=== PATIENT | male | born 1945 | race Hispanic/Latino ===

== ENCOUNTER 2018-04-10 11:33 | Inpatient (IN) | payer MEDICARE ==
[2018-04-10 11:37] VITALS: BMI 22.8
--- NOTE | 2018-04-10 12:19 | ED PDOC ---
HPI: General Adult Time Seen by Provider: 04/10/18 12:02 Chief Complaint (Nursing): Wound Check Additional Complaint(s): 72 y/o M c PMHx Parkinson's disease, anemia, seizure, s/p recent R hip surgery p /w R hip pain with erythema and discharge of pus, gradually worsening over the last week. States seen by Dr. Umana 1 week prior and informed appears well. Patient was then instructed to come to ED for further evaluation of the hip for possible infection over this weekend. He denies fever, chills, dyspnea, vomiting. Past Medical History Vital Signs: Last Vital Signs Temp 98.6 F 04/10/18 11:35 Pulse 72 04/10/18 11:35 Resp BP 123/74 04/10/18 11:35 Pulse Ox 98 04/10/18 14:14 - Family History Family History: States: No Known Family Hx - Home Medications Home Medications: Ambulatory Orders Medication Instructions Recorded Acetaminophen [Tylenol 325mg tab] 2 tab PO Q4 PRN 04/10/18 Carbidopa/Levodopa 25/100 mg 2 tab PO Q12 04/10/18 [Sinemet] DiphenhydrAMINE [Benadryl] 25 mg PO Q6 PRN 04/10/18 Docusate [Colace] 2 cap PO DAILY PRN 04/10/18 Ergocalciferol [Drisdol] 50,000 iu PO QWK 04/10/18 Lactobacillus Acidophilus 1 cap PO DAILY 04/10/18 [Acidophilus Lactobacillus] Ropinirole HCl [Requip Xl] 2 mg PO 04/10/18 Tamsulosin [Flomax] 1 cap PO DAILY 04/10/18 oxyCODONE/Acetaminophen [Percocet 1 tab PO Q6 04/10/18 5/325 mg Tab] - Allergies Allergies/Adverse Reactions: Allergies Allergy/AdvReac Type Severity Reaction Status Date / Time milk Allergy RASH Verified 04/10/18 11:44 Review of Systems ROS Statement: Except As Marked, All Systems Reviewed And Found Negative Constitutional: Negative for: Fever Respiratory: Negative for: Shortness of Breath Physical Exam - Physical Exam Comments: Gen: NAD Head: NC Eyes: No scleral icterus ENT: MMM Neck: Supple Chest: No tenderness CV: Regular rate Lungs: CTA b/l Abd: Soft, NT Back: No CVA tenderness Extremities: R hip incision with distal area of pus drainage Skin: No rash Neuro: Alert, no focal deficit. Tremor. - Laboratory Results Result Diagrams: 04/10/18 14:35 04/10/18 14:35 - ECG O2 Sat by Pulse Oximetry: 98 Medical Decision Making Medical Decision Making: EKG NSR 61 bpm, no ST/T wave changes CXR IMPRESSION: No active disease. HIP XR IMPRESSION: No fracture. Patient refused CT of hip. Dr. Umana recommends admission with him on consult and Dr. Valdez for ID. Betadine wet to dry dressings and keep normal diet. He recommends no wound cultures at this time. Dr. Mcmullen covering for Dr. Katrina garnica covers for Dr. Nava accepts admission. Disposition - Clinical Impression Clinical Impression: Encounter for postoperative wound check, Wound drainage - Patient ED Disposition Is Patient to be Admitted: Yes - Disposition Disposition Time: 17:15 Condition: GUARDED - Pt Status Changed To: Hospital Disposition Of: Inpatient - Admit Certification Admit to Inpatient:: After my assessment, the patient will require hospitalization for at least two midnights. This is because of the severity of symptoms shown, intensity of services needed, and/or the medical risk in this patient being treated as an outpatient.
--- NOTE | 2018-04-10 13:58 | RAD ---
HISTORY: R hip infection COMPARISON: No prior. FINDINGS: LUNGS: No active pulmonary disease. PLEURA: No significant pleural effusion identified, no pneumothorax apparent. CARDIOVASCULAR: Normal. OSSEOUS STRUCTURES: No significant abnormalities. VISUALIZED UPPER ABDOMEN: Normal. OTHER FINDINGS: None. IMPRESSION: No active disease.
--- NOTE | 2018-04-10 14:00 | RAD ---
HISTORY: s/p R hip replacement, possible infection COMPARISON: No prior FINDINGS: BONES: Right hip artgropladty.. No fracture. JOINTS: Normal. No osteoarthritis. SOFT TISSUE: Normal. OTHER FINDINGS: None . IMPRESSION: No fracture..
[2018-04-10 15:09] LABS: BASO % 0.4 % (0.0-2.0); EOS # 0.3 K/uL (0.0-0.7); EOS % 4.2 % (0.0-4.0); HEMOGLOBIN 11.4 g/dL (12.0-18.0); LYMPH # 1.8 K/uL (1.0-4.3); LYMPH % 30.3 % (20.0-40.0); MEAN CELL VOLUME 93.2 fl (80.0-94.0); MEAN CORPUSCULAR HEMOGLOBIN 30.9 pg (27.0-31.0); MEAN CORPUSCULAR HGB CONC 33.2 g/dL (33.0-37.0); MEAN PLATELET VOLUME 6.5 fl (7.2-11.7); MONO # 0.5 K/uL (0.0-0.8); MONO % 8.9 % (0.0-10.0); NEUT # 3.3 K/uL (1.8-7.0); NEUT % 56.2 % (50.0-75.0); NRBC % 0.1 % (0.0-0.0); RBC 3.69 Mil/uL (4.40-5.90); RED CELL DISTRIBUTION WIDTH 14.9 % (11.5-14.5); WHITE BLOOD COUNT 5.9 K/uL (4.8-10.8)
[2018-04-10 15:12] LABS: ALBUMIN 3.5 g/dL (3.5-5.0); ALT/SGPT 11 U/L (21-72); AST/SGOT 18 U/L (17-59); BLOOD UREA NITROGEN 14 mg/dl (9-20); CALCIUM 8.9 mg/dL (8.4-10.2); GFR AFRICAN-AMERICAN > 60; GFR NON-AFRICAN AMERICAN > 60
[2018-04-10 15:26] LABS: URINE BILIRUBIN NEGATIVE (NEGATIVE); URINE BLOOD MODERATE (NEGATIVE); URINE CLARITY SLIGHTY-CLOUDY (Clear); URINE COLOR YELLOW (YELLOW); URINE GLUCOSE (UA) NEG (Normal); URINE LEUKOCYTE ESTERASE NEG Leu/uL (Negative); URINE PROTEIN NEGATIVE (NEGATIVE)
[2018-04-10 15:34] LABS: PARTIAL THROMBOPLASTIN TIME 32.1 Seconds (25.6-37.1); PROTHROMBIN TIME 11.4 Seconds (9.8-13.1)
[2018-04-10] MEDS ORDERED: Vancomycin 1 g Inj ONE (15:44)
[2018-04-10] MEDS ORDERED: Povidone Iodine Oint 10% Foilpak UD ONE (18:12)
[2018-04-10] MEDS ORDERED: Oxycodone/Acetaminophen 5/325 mg Tab PO PRN (20:28)
--- NOTE | 2018-04-11 03:16 | CP.PCM.HP ---
History of Present Illness - History of Present Illness History of Present Illness: CC: s/p surgery wound drainnage 72 y/o M c PMHx Parkinson's disease, anemia, seizure, s/p recent R hip surgery p /w R hip pain with erythema and discharge of pus, gradually worsening over the last week. States seen by Dr. Umana 1 week prior and informed appears well. Patient was then instructed to come to ED for further evaluation of the hip for possible infection over this weekend. He denies fever, chills, dyspnea, vomiting. Past Patient History - Past Medical History & Family History Past Medical History?: Yes - Past Social History Smoking Status: Never Smoked - CARDIAC Hx Cardiac Disorders: No - PULMONARY Hx Respiratory Disorders: No - NEUROLOGICAL Hx Neurological Disorder: Yes Hx Parkinson's Disease: Yes - HEENT Hx HEENT Problems: No - RENAL Hx Chronic Kidney Disease: No - MUSCULOSKELETAL/RHEUMATOLOGICAL Hx Musculoskeletal Disorders: Yes Hx Falls: Yes (1) - GENITOURINARY/GYNECOLOGICAL Hx Genitourinary Disorders: Yes Hx Incontinence: Yes - PSYCHIATRIC Hx Psychophysiologic Disorder: No Hx Substance Use: No - SURGICAL HISTORY Hx Open Reduction Internal Fixation: Yes (Rt hip) Hx Orthopedic Surgery: Yes - ANESTHESIA Hx Anesthesia: Yes Hx Anesthesia Reactions: No Hx Malignant Hyperthermia: No Meds Allergies/Adverse Reactions: Allergies Allergy/AdvReac Type Severity Reaction Status Date / Time milk Allergy RASH Verified 04/10/18 11:44 Results - Vital Signs Recent Vital Signs: Last Vital Signs Temp 97.8 F 04/10/18 23:53 Pulse 63 04/10/18 23:53 Resp 20 04/10/18 23:53 BP 91/60 L 04/10/18 23:53 Pulse Ox 96 04/10/18 23:53 - Labs Result Diagrams: 04/10/18 14:35 04/10/18 14:35 Labs: Laboratory Results - last 24 hr 04/10/18 04/10/18 04/10/18 14:35 14:35 14:35 WBC 5.9 RBC 3.69 L Hgb 11.4 L Hct 34.3 L MCV 93.2 MCH 30.9 MCHC 33.2 RDW 14.9 H Plt Count 298 MPV 6.5 L Neut % (Auto) 56.2 Lymph % (Auto) 30.3 [place] % (Auto) 8.9 Eos % (Auto) 4.2 H Baso % (Auto) 0.4 Neut # (Auto) 3.3 Lymph # (Auto) 1.8 [place] # (Auto) 0.5 Eos # (Auto) 0.3 Baso # (Auto) 0.0 ESR 105 H PT 11.4 INR 1.0 APTT 32.1 Sodium 137 Potassium 4.2 Chloride 98 Carbon Dioxide 28 Anion Gap 15 BUN 14 Creatinine 0.4 L Est GFR ( Amer) > 60 Est GFR (Non-Af Amer) > 60 Random Glucose 92 Calcium 8.9 Total Bilirubin 0.5 AST 18 ALT 11 L Alkaline Phosphatase 73 Total Protein 7.1 Albumin 3.5 Globulin 3.6 Albumin/Globulin Ratio 1.0 Urine Color Urine Clarity Urine pH Ur Specific [place] Urine Protein Urine Glucose (UA) Urine Ketones Urine Blood Urine Nitrate Urine Bilirubin Urine Urobilinogen Ur Leukocyte Esterase Urine RBC (Auto) Urine Microscopic WBC Blood Type Antibody Screen BBK History Checked 04/10/18 04/10/18 14:35 14:40 WBC RBC Hgb Hct MCV MCH MCHC RDW Plt Count MPV Neut % (Auto) Lymph % (Auto) [place] % (Auto) Eos % (Auto) Baso % (Auto) Neut # (Auto) Lymph # (Auto) [place] # (Auto) Eos # (Auto) Baso # (Auto) ESR PT INR APTT Sodium Potassium Chloride Carbon Dioxide Anion Gap BUN Creatinine Est GFR ( Amer) Est GFR (Non-Af Amer) Random Glucose Calcium Total Bilirubin AST ALT Alkaline Phosphatase Total Protein Albumin Globulin Albumin/Globulin Ratio Urine Color Yellow Urine Clarity Slighty-cloudy Urine pH 6.0 Ur Specific [place] 1.020 Urine Protein Negative Urine Glucose (UA) Neg Urine Ketones Negative Urine Blood Moderate Urine Nitrate Negative Urine Bilirubin Negative Urine Urobilinogen 2.0 Ur Leukocyte Esterase Neg Urine RBC (Auto) 255 H Urine Microscopic WBC 1 Blood Type O POSITIVE Antibody Screen Negative BBK History Checked No verified bt
[2018-04-11 06:30] LABS: MEAN CELL VOLUME 92.3 fl (80.0-94.0); MEAN CORPUSCULAR HEMOGLOBIN 31.2 pg (27.0-31.0); MEAN CORPUSCULAR HGB CONC 33.8 g/dL (33.0-37.0); RBC 3.52 Mil/uL (4.40-5.90); RED CELL DISTRIBUTION WIDTH 14.9 % (11.5-14.5)
[2018-04-11 07:02] LABS: ALB/GLOB RATIO 0.9 (1.0-2.1); ALBUMIN 3.3 g/dL (3.5-5.0); ALT/SGPT 18 U/L (21-72); AST/SGOT 15 U/L (17-59); BLOOD UREA NITROGEN 13 mg/dl (9-20); CALCIUM 9.1 mg/dL (8.4-10.2); GFR AFRICAN-AMERICAN > 60; GFR NON-AFRICAN AMERICAN > 60
--- NOTE | 2018-04-11 08:14 | CP.PCM.CON ---
<Alex Hurley - Last Filed: 04/11/18 16:10> History of Present Illness - History of Present Illness History of Present Illness: Orthopedic consult: Patient is a 72 y/o male with PMH of Parkinson's disease, who was admitted due to R hip drainage over the last 2 weeks. The patient has a history of a right total hip replacement performed on 01/17/18 and returned to the OR for a revision right total hip replacement due to infected prosthesis on 01/31/18. He has been transfused with IV antibiotics through his RUE PICC line since his revision surgery. The patient was transferred to a rehab center with slow progression of his rehabilitation. He notes that he is only able to ambulate a few feet with a walker due to imbalance. Two weeks ago, he noticed cloudy drainage from his right hip wound site which has been constant. His pain is otherwise controlled. He denies any fevers, radiation of pain, numbness or tingling. He also denies CP/SOB/N/V/D/dysuria/melena. Review of Systems - Review of Systems All systems: reviewed and no additional remarkable complaints except Review of Systems: as per HPI Past Patient History - Past Medical History & Family History Past Medical History?: Yes - Past Social History Smoking Status: Never Smoked Alcohol: None Drugs: Denies - CARDIAC Hx Cardiac Disorders: No - PULMONARY Hx Respiratory Disorders: No - NEUROLOGICAL Hx Neurological Disorder: Yes Hx Parkinson's Disease: Yes - HEENT Hx HEENT Problems: No - RENAL Hx Chronic Kidney Disease: No - ENDOCRINE/METABOLIC Hx Endocrine Disorders: No - HEMATOLOGICAL/ONCOLOGICAL Hx Blood Disorders: No Hx Anemia: Yes - INTEGUMENTARY Hx Dermatological Problems: No - MUSCULOSKELETAL/RHEUMATOLOGICAL Hx Musculoskeletal Disorders: Yes Hx Falls: Yes (1) - GASTROINTESTINAL Hx Gastrointestinal Disorders: No - GENITOURINARY/GYNECOLOGICAL Hx Genitourinary Disorders: Yes Hx Incontinence: Yes - PSYCHIATRIC Hx Psychophysiologic Disorder: No Hx Substance Use: No - SURGICAL HISTORY Hx Orthopedic Surgery: Yes (Right DONELL, Right revision DONELL) - ANESTHESIA Hx Anesthesia: Yes Hx Anesthesia Reactions: No Hx Malignant Hyperthermia: No Meds Allergies/Adverse Reactions: Allergies Allergy/AdvReac Type Severity Reaction Status Date / Time milk Allergy RASH Verified 04/10/18 11:44 - Medications Medications: Current Medications Acetaminophen (Tylenol 325mg Tab) 2 mg PO Q4 PRN PRN Reason: Pain, moderate (4-7) Carbidopa/Levodopa (Sinemet) 2 tab PO Q12 [facility] Last Admin: 04/10/18 21:11 Dose: 2 tab Docusate Sodium (Colace) 200 mg PO DAILY PRN PRN Reason: Constipation Ergocalciferol (Drisdol 50,000 Intl Units Cap) 1 cap PO QWK [facility] Lactobacillus Acidophilus (Bacid Acidophilus) 1 cap PO DAILY [facility] Oxycodone/Acetaminophen (Percocet 5/325 Mg Tab) 1 tab PO Q4 PRN PRN Reason: Pain, moderate (4-7) Stop: 04/13/18 21:01 Last Admin: 04/10/18 21:11 Dose: 1 tab Tamsulosin HCl (Flomax) 0.4 mg PO DAILY [facility] Physical Exam - Constitutional Appears: Well, No Acute Distress - Head Exam Head Exam: ATRAUMATIC, NORMOCEPHALIC - Eye Exam Eye Exam: EOMI, Normal appearance, PERRL - ENT Exam ENT Exam: Mucous Membranes Moist, Normal Exam - Respiratory Exam Respiratory Exam: Clear to Auscultation Bilateral, NORMAL BREATHING PATTERN - Cardiovascular Exam Cardiovascular Exam: REGULAR RHYTHM - GI/Abdominal Exam GI & Abdominal Exam: Normal Bowel Sounds, Soft - Extremities Exam Additional comments: Right hip: minimal swelling, Dressings with mod serous drainage, DONELL scar with serous drainage from proximal and distal aspect of wound sensation intact SP/DP/TN motor intact EHL/FHL/TA/G pedal pulses intact comps soft and NT b/l L hip: No swelling, no lesions, no tenderness sensation intact SP/DP/TN motor intact EHL/FHL/TA/G pedal pulses intact comps soft and NT b/l - Neurological Exam Neurological exam: Alert, Oriented x3 Additional comments: UE tremor from parkinson's dz - Psychiatric Exam Psychiatric exam: Normal Affect, Normal Mood - Skin Skin Exam: Normal Color, Warm Results - Vital Signs Recent Vital Signs: Last Vital Signs Temp 97.7 F 04/11/18 08:02 Pulse 57 L 04/11/18 08:02 Resp 19 04/11/18 08:02 BP 101/63 04/11/18 08:02 Pulse Ox 98 04/11/18 08:02 - Labs Result Diagrams: 04/11/18 05:35 04/11/18 05:35 Labs: Laboratory Results - last 24 hr 04/10/18 04/10/18 04/10/18 14:35 14:35 14:35 WBC 5.9 RBC 3.69 L Hgb 11.4 L Hct 34.3 L MCV 93.2 MCH 30.9 MCHC 33.2 RDW 14.9 H Plt Count 298 MPV 6.5 L Neut % (Auto) 56.2 Lymph % (Auto) 30.3 [place] % (Auto) 8.9 Eos % (Auto) 4.2 H Baso % (Auto) 0.4 Neut # (Auto) 3.3 Lymph # (Auto) 1.8 [place] # (Auto) 0.5 Eos # (Auto) 0.3 Baso # (Auto) 0.0 ESR 105 H PT 11.4 INR 1.0 APTT 32.1 Sodium 137 Potassium 4.2 Chloride 98 Carbon Dioxide 28 Anion Gap 15 BUN 14 Creatinine 0.4 L Est GFR ( Amer) > 60 Est GFR (Non-Af Amer) > 60 Random Glucose 92 Calcium 8.9 Total Bilirubin 0.5 AST 18 ALT 11 L Alkaline Phosphatase 73 Total Protein 7.1 Albumin 3.5 Globulin 3.6 Albumin/Globulin Ratio 1.0 Urine Color Urine Clarity Urine pH Ur Specific [place] Urine Protein Urine Glucose (UA) Urine Ketones Urine Blood Urine Nitrate Urine Bilirubin Urine Urobilinogen Ur Leukocyte Esterase Urine RBC (Auto) Urine Microscopic WBC Blood Type Antibody Screen BBK History Checked 04/10/18 04/10/18 04/11/18 14:35 14:40 05:35 WBC 4.0 L RBC 3.52 L Hgb 11.0 L Hct 32.5 L MCV 92.3 MCH 31.2 H MCHC 33.8 RDW 14.9 H Plt Count 299 MPV Neut % (Auto) Lymph % (Auto) [place] % (Auto) Eos % (Auto) Baso % (Auto) Neut # (Auto) Lymph # (Auto) [place] # (Auto) Eos # (Auto) Baso # (Auto) ESR 83 H PT INR APTT Sodium Potassium Chloride Carbon Dioxide Anion Gap BUN Creatinine Est GFR ( Amer) Est GFR (Non-Af Amer) Random Glucose Calcium Total Bilirubin AST ALT Alkaline Phosphatase Total Protein Albumin Globulin Albumin/Globulin Ratio Urine Color Yellow Urine Clarity Slighty-cloudy Urine pH 6.0 Ur Specific [place] 1.020 Urine Protein Negative Urine Glucose (UA) Neg Urine Ketones Negative Urine Blood Moderate Urine Nitrate Negative Urine Bilirubin Negative Urine Urobilinogen 2.0 Ur Leukocyte Esterase Neg Urine RBC (Auto) 255 H Urine Microscopic WBC 1 Blood Type O POSITIVE Antibody Screen Negative BBK History Checked No verified bt 04/11/18 05:35 WBC RBC Hgb Hct MCV MCH MCHC RDW Plt Count MPV Neut % (Auto) Lymph % (Auto) [place] % (Auto) Eos % (Auto) Baso % (Auto) Neut # (Auto) Lymph # (Auto) [place] # (Auto) Eos # (Auto) Baso # (Auto) ESR PT INR APTT Sodium 136 Potassium 4.2 Chloride 99 Carbon Dioxide 27 Anion Gap 14 BUN 13 Creatinine 0.4 L Est GFR ( Amer) > 60 Est GFR (Non-Af Amer) > 60 Random Glucose 86 Calcium 9.1 Total Bilirubin 0.5 AST 15 L ALT 18 L D Alkaline Phosphatase 63 Total Protein 6.9 Albumin 3.3 L Globulin 3.6 Albumin/Globulin Ratio 0.9 L Urine Color Urine Clarity Urine pH Ur Specific [place] Urine Protein Urine Glucose (UA) Urine Ketones Urine Blood Urine Nitrate Urine Bilirubin Urine Urobilinogen Ur Leukocyte Esterase Urine RBC (Auto) Urine Microscopic WBC Blood Type Antibody Screen BBK History Checked Assessment & Plan (1) Wound drainage Assessment and Plan: Patient is 3 months s/p R DONELL and 2 months s/p revision R DONELL with drainage from wound, infected prosthesis -Xrays reveal intact prosthesis with no evidence of component loosening -medical and cardiac clearance -Dr. Umana recommends Right hip washout, possible poly exchange, possible removal of prosthesis and antibiotic spacer placement once cleared -abx as per ID -above d/w Dr. Umana in agreement Status: Acute Radiology Interpretation - Notes: Notes:: Accession No. : [id number] Patient Name / ID : JUDI LAZO / [id number] Exam Date : 04/10/2018 12:33:53 ( Approved ) Study Comment : Sex / Age : M / 72Y Creator : Mychal Buchanan MD Dictator : Mychal Buchanan MD Company Accountant : [employer] Advisor : Mychal Buchanan MD Approver2 : Report Date : 04/10/2018 13:59:19 My Comment : HISTORY: s/p R hip replacement, possible infection COMPARISON: No prior FINDINGS: BONES: Right hip artgropladty.. No fracture. JOINTS: Normal. No osteoarthritis. SOFT TISSUE: Normal. OTHER FINDINGS: None . IMPRESSION: No fracture.. - Radiology Interpretation #2 Interpretation: Accession No. : [id number] Patient Name / ID : JUDI LAZO / [id number] Exam Date : 04/11/2018 09:21:36 ( Approved ) Study Comment : Sex / Age : M / 72Y Creator : Edgardo Payne MD Dictator : Edgardo Payne MD Company Accountant : [employer] Advisor : Edgardo Payne MD Approver2 : Report Date : 04/11/2018 10:25:25 My Comment : PROCEDURE: CT right hip HISTORY: with IV contrast, R hip surgery COMPARISON: Not available TECHNIQUE: 2.5 mm contiguous axial sections were acquired through the right hip. Sagittal and coronal images were reformatted from the axial scan. FINDINGS: Patient is status post right hip arthroplasty. Knee prosthesis appears intact. There is no evidence of prosthesis loosening. There is no acute osseous fracture appreciated. There is normal situation of the femoral head component within the acetabular cup. Within the incision wounds in there is a small ill-defined fluid collection just beneath the skin surface, measuring roughly 1.8 x 1.3 cm. There is a small amount of gas seen within this collection. The contours of the collection are poorly delineated due to lack of adequate enhancement. This may reflect abscess or a mix of abscess and phlegmon. No other collection is identified elsewhere. Incidentally noted is a right inguinal hernia containing cecum and terminal ileum. There is no evidence of bowel obstruction on this limited evaluation of the bowel. Also of note is a calcified structure or collection of calcifications at the right bladder base. Uncertain significance. Diffusely thickened bladder wall though this may be partially due to artifact from inadequate distention. IMPRESSION: Right hip arthroplasty. No evidence of fracture or prosthesis loosening. Small collection of fluid/ phlegmon and a small amount of gas immediately beneath the skin surface at the incision site, 1.8 cm greatest dimension. Right inguinal hernia containing cecum and terminal ileum. Nonspecific calcification at the right bladder base. Thickened bladder wall, nonspecific. See above. <Gordon Umana III - Last Filed: 04/11/18 18:09> Meds - Medications Medications: Current Medications Acetaminophen (Tylenol 325mg Tab) 2 mg PO Q4 PRN PRN Reason: Pain, moderate (4-7) Carbidopa/Levodopa (Sinemet) 2 tab PO Q12 [facility] Last Admin: 04/11/18 10:39 Dose: Not Given Docusate Sodium (Colace) 200 mg PO DAILY PRN PRN Reason: Constipation Ergocalciferol (Drisdol 50,000 Intl Units Cap) 1 cap PO QWK [facility] Vancomycin HCl 1 gm/ Sodium (Chloride) 250 mls @ 166.667 mls/hr IVPB Q12H [facility] PRN Reason: Protocol Last Admin: 04/11/18 11:28 Dose: 166.667 mls/hr Cefepime HCl 2 gm/ Sodium (Chloride) 100 mls @ 100 mls/hr IVPB Q12 [facility] PRN Reason: Protocol Last Admin: 04/11/18 11:28 Dose: 100 mls/hr Lactobacillus Acidophilus (Bacid Acidophilus) 1 cap PO DAILY [facility] Last Admin: 04/11/18 10:39 Dose: Not Given Oxycodone/Acetaminophen (Percocet 5/325 Mg Tab) 1 tab PO Q4 PRN PRN Reason: Pain, moderate (4-7) Stop: 04/13/18 21:01 Last Admin: 04/10/18 21:11 Dose: 1 tab Tamsulosin HCl (Flomax) 0.4 mg PO DAILY [facility] Last Admin: 04/11/18 10:39 Dose: Not Given Results - Vital Signs Recent Vital Signs: Last Vital Signs Temp 98.3 F 04/11/18 15:55 Pulse 63 04/11/18 15:55 Resp 20 04/11/18 15:55 BP 113/68 04/11/18 15:55 Pulse Ox 96 04/11/18 15:55 - Labs Result Diagrams: 04/11/18 05:35 04/11/18 05:35 Labs: Laboratory Results - last 24 hr 04/10/18 04/10/18 04/11/18 14:35 14:35 05:35 WBC 4.0 L RBC 3.52 L Hgb 11.0 L Hct 32.5 L MCV 92.3 MCH 31.2 H MCHC 33.8 RDW 14.9 H Plt Count 299 ESR 83 H Sodium Potassium Chloride Carbon Dioxide Anion Gap BUN Creatinine Est GFR ( Amer) Est GFR (Non-Af Amer) Random Glucose Calcium Total Bilirubin AST ALT Alkaline Phosphatase C-React Prot High Sens > 15.00 H Total Protein Albumin Globulin Albumin/Globulin Ratio Blood Type O POSITIVE Antibody Screen Negative Crossmatch See Detail BBK History Checked No verified bt 04/11/18 05:35 WBC RBC Hgb Hct MCV MCH MCHC RDW Plt Count ESR Sodium 136 Potassium 4.2 Chloride 99 Carbon Dioxide 27 Anion Gap 14 BUN 13 Creatinine 0.4 L Est GFR ( Amer) > 60 Est GFR (Non-Af Amer) > 60 Random Glucose 86 Calcium 9.1 Total Bilirubin 0.5 AST 15 L ALT 18 L D Alkaline Phosphatase 63 C-React Prot High Sens Total Protein 6.9 Albumin 3.3 L Globulin 3.6 Albumin/Globulin Ratio 0.9 L Blood Type Antibody Screen Crossmatch BBK History Checked Assessment & Plan - Assessment and Plan (Free Text) Assessment: A- s/p R septic Knee with recurrence of apparently superficial pocket No increase pain on passive flexion/extenison P- after Dr Juarez cardiology clearance, to OR for I+D vs component removal and insertion of abio impregnated spacer
--- NOTE | 2018-04-11 08:37 | CARD ---
APPROVED REPORT EKG Measurement Heart [id number] <Conclusion> Normal sinus rhythm Normal ECG
[2018-04-11] MEDS ORDERED: Iohexol 300 100 ML IJ ONE (09:33)
[2018-04-11] MEDS ORDERED: Sodium Chloride 0.9% 50 ML IV ONE (09:33)
--- NOTE | 2018-04-11 10:06 | CP.PCM.CON ---
History of Present Illness - History of Present Illness History of Present Illness: 72 y/o male was admitted due to R hip drainage over the last 2 weeks. The patient has a history of a right total hip replacement performed on 01/17/18 and returned to the OR for a revision right total hip replacement due to infected prosthesis on 01/31/18. He has been treated with IV antibiotics through his RUE PICC line since his revision surgery. The patient was transferred to a rehab center with slow progression of his rehabilitation. He notes that he was only able to ambulate a few feet with a walker due to imbalance. Two weeks ago, he noticed cloudy drainage from his right hip wound site which has been constant. cultures taken CT scan pending for OR/ washout this afternoon Review of Systems - Review of Systems All systems: reviewed and no additional remarkable complaints except - Constitutional Constitutional: As Per HPI - EENT Eyes: absent: As Per HPI, Blind Spots, Blurred Vision, Change in Vision, Decreased Night Vision, Diplopia, Discharge, Dry Eye, Exophthalmos, Floaters, Irritation, Itchy Eyes, Loss of Peripheral Vision, Pain, Photophobia, Requires Corrective Lenses, Sees Flashes, Spots in Vision, Tunnel Vision, Other Visual Disturbances, Loss of Vision, Other Ears: absent: As Per HPI, Decreased Hearing, Ear Discharge, Ear Pain, Tinnitus, Abnormal Hearing, Disequilibrium, Dizziness, Other Nose/Mouth/Throat: absent: As Per HPI, Epistaxis, Nasal Congestion, Nasal Discharge, Nasal Obstruction, Nasal Trauma, Nose Pain, Post Nasal Drip, Sinus Pain, Sinus Pressure, Bleeding Gums, Change in Voice, Dental Pain, Dry Mouth, Dysphagia, Halitosis, Hoarsness, Lip Swelling, Mouth Lesions, Mouth Pain, Odynophagia, Sore Throat, Throat Swelling, Tongue Swelling, Facial Pain, Neck Pain, Neck Mass, Other - Cardiovascular Cardiovascular: absent: As Per HPI, Acrocyanosis, Chest Pain, Chest Pain at Rest , Chest Pain with Activity, Claudication, Diaphoresis, Dyspnea, Dyspnea on Exertion, Edema, Irregular Heart Rhythm, Pain Radiating to Arm/Neck/Jaw, Leg Edema, Leg Ulcers, Lightheadedness, Orthopnea, Palpitations, Paroxysmal Nocturnal Dyspnea, Pedal Edema, Radiating Pain, Rapid Heart Rate, Slow Heart Rate, Syncope, Other - Respiratory Respiratory: absent: As Per HPI, Cough, Dyspnea, Hemoptysis, Dyspnea on Exertion , Wheezing, Snoring, Stridor, Pain on Inspiration, Chest Congestion, Excessive Mucous Production, Change in Mucous Color, Pain with Coughing, Other - Gastrointestinal Gastrointestinal: absent: As Per HPI, Abdominal Pain, Belching, Bloating, Change in Bowel Habits, Change in Stool Character, Coffee Ground Emesis, Constipation, Cramping, Diarrhea, Dyspepsia, Dysphagia, Early Satiety, Excessive Flatus, Fecal Incontinence, Heartburn, Hematemesis, Hematochezia, Loose Stools, Melena, Nausea, Odynophagia, Temesmus, Vomiting, Other - Genitourinary Genitourinary: absent: As Per HPI, Change in Urinary Stream, Difficulty Urinating, Dysuria, Flank Pain, Hematuria, Pyuria, Nocturia, Urinary Incontinence, Urinary Frequency, Urinary Hesitance, Urinary Urgency, Voiding Freq/Small Amts, Freq UTI, Hx Renal/Bladder Calculi, Hx /Renal Surgery, Bladder Distension, Other - Musculoskeletal Musculoskeletal: As Per HPI - Integumentary Integumentary: As Per HPI - Neurological Neurological: As Per HPI, Tremor - Psychiatric Psychiatric: absent: As Per HPI, Abnormal Sleep Pattern, Anhedonia, Anxiety, Auditory Hallucinations, Behavioral Changes, Change in Appetite, Change in Libido, Confusion, Depression, Difficulty Concentrating, Hallucinations, Homicidal Ideation, Hopelessness, Irritability, Memory Loss, Mood Swings, Panic Attacks, Paranoia, Suicidal Ideation, Visual Hallucinations, Tactile Hallucinations, Other - Endocrine Endocrine: absent: As Per HPI, Change in Body Appearance, Change in Libido, Cold Intolorance, Deepening of Voice, Excessive Sweating, Fatigue, Flushing, Heat Intolorance, Increase in Ring/Shoe/Hat Size, Palpitations, Polydipsia, Polyphagia, Polyuria, Other - Hematologic/Lymphatic Hematologic: absent: As Per HPI, Easy Bleeding, Easy Bruising, Lymphadenopathy, Other Past Patient History - Past Medical History & Family History Past Medical History?: Yes - Past Social History Smoking Status: Never Smoked Alcohol: None Drugs: Denies - CARDIAC Hx Cardiac Disorders: No - PULMONARY Hx Respiratory Disorders: No - NEUROLOGICAL Hx Neurological Disorder: Yes Hx Parkinson's Disease: Yes - HEENT Hx HEENT Problems: No - RENAL Hx Chronic Kidney Disease: No - ENDOCRINE/METABOLIC Hx Endocrine Disorders: No - HEMATOLOGICAL/ONCOLOGICAL Hx Blood Disorders: No Hx Anemia: Yes - INTEGUMENTARY Hx Dermatological Problems: No - MUSCULOSKELETAL/RHEUMATOLOGICAL Hx Musculoskeletal Disorders: Yes Hx Falls: Yes (1) - GASTROINTESTINAL Hx Gastrointestinal Disorders: No - GENITOURINARY/GYNECOLOGICAL Hx Genitourinary Disorders: Yes Hx Incontinence: Yes - PSYCHIATRIC Hx Psychophysiologic Disorder: No Hx Substance Use: No - SURGICAL HISTORY Hx Orthopedic Surgery: Yes (Right DONELL, Right revision DONELL) - ANESTHESIA Hx Anesthesia: Yes Hx Anesthesia Reactions: No Hx Malignant Hyperthermia: No Meds Allergies/Adverse Reactions: Allergies Allergy/AdvReac Type Severity Reaction Status Date / Time milk Allergy RASH Verified 04/10/18 11:44 - Medications Medications: Current Medications Acetaminophen (Tylenol 325mg Tab) 2 mg PO Q4 PRN PRN Reason: Pain, moderate (4-7) Carbidopa/Levodopa (Sinemet) 2 tab PO Q12 [facility] Last Admin: 04/10/18 21:11 Dose: 2 tab Docusate Sodium (Colace) 200 mg PO DAILY PRN PRN Reason: Constipation Ergocalciferol (Drisdol 50,000 Intl Units Cap) 1 cap PO QWK [facility] Lactobacillus Acidophilus (Bacid Acidophilus) 1 cap PO DAILY [facility] Oxycodone/Acetaminophen (Percocet 5/325 Mg Tab) 1 tab PO Q4 PRN PRN Reason: Pain, moderate (4-7) Stop: 04/13/18 21:01 Last Admin: 04/10/18 21:11 Dose: 1 tab Tamsulosin HCl (Flomax) 0.4 mg PO DAILY [facility] Physical Exam - Constitutional Appears: Non-toxic, Chronically Ill - Head Exam Head Exam: ATRAUMATIC, NORMAL INSPECTION, NORMOCEPHALIC - Eye Exam Eye Exam: PERRL. absent: Scleral icterus - ENT Exam ENT Exam: Mucous Membranes Dry, Normal External Ear Exam - Neck Exam Neck exam: Negative for: Lymphadenopathy - Respiratory Exam Respiratory Exam: Decreased Breath Sounds, Clear to Auscultation Bilateral - Cardiovascular Exam Cardiovascular Exam: REGULAR RHYTHM, +S1, +S2 - GI/Abdominal Exam GI & Abdominal Exam: Diminished Bowel Sounds, Soft. absent: Tenderness - Rectal Exam Rectal Exam: Deferred - Exam Exam: NORMAL INSPECTION - Extremities Exam Extremities exam: Positive for: pedal pulses present. Negative for: calf tenderness, pedal edema, tenderness - Back Exam Back exam: absent: CVA tenderness (L), CVA tenderness (R) - Neurological Exam Neurological exam: Alert, CN II-XII Intact, Oriented x3 Additional comments: tremors ++ - Psychiatric Exam Psychiatric exam: Anxious - Skin Skin Exam: Intact Additional comments: drainage at lower end of right hip incision Results - Vital Signs Recent Vital Signs: Last Vital Signs Temp 97.7 F 04/11/18 08:02 Pulse 57 L 04/11/18 08:02 Resp 19 04/11/18 08:02 BP 101/63 04/11/18 08:02 Pulse Ox 98 04/11/18 08:02 - Labs Result Diagrams: 04/11/18 05:35 04/11/18 05:35 Labs: Laboratory Results - last 24 hr 04/10/18 04/10/18 04/10/18 14:35 14:35 14:35 WBC 5.9 RBC 3.69 L Hgb 11.4 L Hct 34.3 L MCV 93.2 MCH 30.9 MCHC 33.2 RDW 14.9 H Plt Count 298 MPV 6.5 L Neut % (Auto) 56.2 Lymph % (Auto) 30.3 [place]arton % (Auto) 8.9 Eos % (Auto) 4.2 H Baso % (Auto) 0.4 Neut # (Auto) 3.3 Lymph # (Auto) 1.8 [place]arton # (Auto) 0.5 Eos # (Auto) 0.3 Baso # (Auto) 0.0 ESR 105 H PT 11.4 INR 1.0 APTT 32.1 Sodium 137 Potassium 4.2 Chloride 98 Carbon Dioxide 28 Anion Gap 15 BUN 14 Creatinine 0.4 L Est GFR ( Amer) > 60 Est GFR (Non-Af Amer) > 60 Random Glucose 92 Calcium 8.9 Total Bilirubin 0.5 AST 18 ALT 11 L Alkaline Phosphatase 73 Total Protein 7.1 Albumin 3.5 Globulin 3.6 Albumin/Globulin Ratio 1.0 Urine Color Urine Clarity Urine pH Ur Specific [place] Urine Protein Urine Glucose (UA) Urine Ketones Urine Blood Urine Nitrate Urine Bilirubin Urine Urobilinogen Ur Leukocyte Esterase Urine RBC (Auto) Urine Microscopic WBC Blood Type Antibody Screen Crossmatch BBK History Checked 04/10/18 04/10/18 04/11/18 14:35 14:40 05:35 WBC 4.0 L RBC 3.52 L Hgb 11.0 L Hct 32.5 L MCV 92.3 MCH 31.2 H MCHC 33.8 RDW 14.9 H Plt Count 299 MPV Neut % (Auto) Lymph % (Auto) [place]arton % (Auto) Eos % (Auto) Baso % (Auto) Neut # (Auto) Lymph # (Auto) [place]arton # (Auto) Eos # (Auto) Baso # (Auto) ESR 83 H PT INR APTT Sodium Potassium Chloride Carbon Dioxide Anion Gap BUN Creatinine Est GFR ( Amer) Est GFR (Non-Af Amer) Random Glucose Calcium Total Bilirubin AST ALT Alkaline Phosphatase Total Protein Albumin Globulin Albumin/Globulin Ratio Urine Color Yellow Urine Clarity Slighty-cloudy Urine pH 6.0 Ur Specific [place] 1.020 Urine Protein Negative Urine Glucose (UA) Neg Urine Ketones Negative Urine Blood Moderate Urine Nitrate Negative Urine Bilirubin Negative Urine Urobilinogen 2.0 Ur Leukocyte Esterase Neg Urine RBC (Auto) 255 H Urine Microscopic WBC 1 Blood Type O POSITIVE Antibody Screen Negative Crossmatch See Detail BBK History Checked No verified bt 04/11/18 05:35 WBC RBC Hgb Hct MCV MCH MCHC RDW Plt Count MPV Neut % (Auto) Lymph % (Auto) [place] % (Auto) Eos % (Auto) Baso % (Auto) Neut # (Auto) Lymph # (Auto) [place] # (Auto) Eos # (Auto) Baso # (Auto) ESR PT INR APTT Sodium 136 Potassium 4.2 Chloride 99 Carbon Dioxide 27 Anion Gap 14 BUN 13 Creatinine 0.4 L Est GFR ( Amer) > 60 Est GFR (Non-Af Amer) > 60 Random Glucose 86 Calcium 9.1 Total Bilirubin 0.5 AST 15 L ALT 18 L D Alkaline Phosphatase 63 Total Protein 6.9 Albumin 3.3 L Globulin 3.6 Albumin/Globulin Ratio 0.9 L Urine Color Urine Clarity Urine pH Ur Specific [place] Urine Protein Urine Glucose (UA) Urine Ketones Urine Blood Urine Nitrate Urine Bilirubin Urine Urobilinogen Ur Leukocyte Esterase Urine RBC (Auto) Urine Microscopic WBC Blood Type Antibody Screen Crossmatch BBK History Checked Assessment & Plan (1) Wound drainage Status: Acute - Assessment and Plan (Free Text) Assessment: 72 y/o male was admitted due to R hip drainage over the last 2 weeks. The patient has a history of a right total hip replacement performed on 01/17/18 and returned to the OR for a revision right total hip replacement due to infected prosthesis on 01/31/18. He has been treated with IV antibiotics through his RUE PICC line since his revision surgery. plan was to take to OR for cultures and washout however patient refusing iv antibiotics ordered empirically await CT scan results discussed with Dr Mcmullen on rounds
--- NOTE | 2018-04-11 10:27 | CT ---
PROCEDURE: CT right hip HISTORY: with IV contrast, R hip surgery COMPARISON: Not available TECHNIQUE: 2.5 mm contiguous axial sections were acquired through the right hip. Sagittal and coronal images were reformatted from the axial scan. FINDINGS: Patient is status post right hip arthroplasty. Knee prosthesis appears intact. There is no evidence of prosthesis loosening. There is no acute osseous fracture appreciated. There is normal situation of the femoral head component within the acetabular cup. Within the incision wounds in there is a small ill-defined fluid collection just beneath the skin surface, measuring roughly 1.8 x 1.3 cm. There is a small amount of gas seen within this collection. The contours of the collection are poorly delineated due to lack of adequate enhancement. This may reflect abscess or a mix of abscess and phlegmon. No other collection is identified elsewhere. Incidentally noted is a right inguinal hernia containing cecum and terminal ileum. There is no evidence of bowel obstruction on this limited evaluation of the bowel. Also of note is a calcified structure or collection of calcifications at the right bladder base. Uncertain significance. Diffusely thickened bladder wall though this may be partially due to artifact from inadequate distention. IMPRESSION: Right hip arthroplasty. No evidence of fracture or prosthesis loosening. Small collection of fluid/ phlegmon and a small amount of gas immediately beneath the skin surface at the incision site, 1.8 cm greatest dimension. Right inguinal hernia containing cecum and terminal ileum. Nonspecific calcification at the right bladder base. Thickened bladder wall, nonspecific. See above.
[2018-04-11] MEDS: Lactobacillus Acidophilus 500 MU Cap PO SCH (10:39)
[2018-04-11] MEDS: Cefepime 2 GM in Sodium Chloride 0.9% 100 ML IVPB SCH ×2 (11:28→21:56)
[2018-04-11] MEDS ORDERED: Povidone Iodine Topical 10% Sol ONE (11:36)
--- NOTE | 2018-04-11 16:12 | CP.PCM.CON ---
History of Present Illness - History of Present Illness History of Present Illness: THE PATIENT IS A 72 YEAR OLD MALE WHO HAD A RIGHT TOTAL HIP REPLACEMENT 01/17/18 AND HE WENT BACK TO THE OR 01/31/18 FOR AN INFECTION. HE HAD A PICC LINE INSERTION AND WENT TO REHAB AND HAD IV ANTIBIOTICS SINCE THEN. HE NOW NOTED NEW DRAINAGE AT THE SITE FOR ABOUT 2 WEEKS NOW. HE WAS ADMITTED TO [facility] AND IV ANTIBIOTICS WERE STARTED AND HE WILL GO TO SURGERY FOR A WASHOUT BY DR AGUILAR AND CARDIOLOGY WAS ASKED TO SEE HIM. HE HAD PARKINSON'S DISEASE BUT DENIES CHEST PAIN, CAD HISTORY, HYPERTENSION OR SOB. Past Patient History - Past Medical History & Family History Past Medical History?: Yes - Past Social History Smoking Status: Never Smoked Alcohol: None Drugs: Denies - CARDIAC Hx Cardiac Disorders: No - PULMONARY Hx Respiratory Disorders: No - NEUROLOGICAL Hx Neurological Disorder: Yes Hx Parkinson's Disease: Yes - HEENT Hx HEENT Problems: No - RENAL Hx Chronic Kidney Disease: No - ENDOCRINE/METABOLIC Hx Endocrine Disorders: No - HEMATOLOGICAL/ONCOLOGICAL Hx Blood Disorders: No Hx Anemia: Yes - INTEGUMENTARY Hx Dermatological Problems: No - MUSCULOSKELETAL/RHEUMATOLOGICAL Hx Musculoskeletal Disorders: Yes Hx Falls: Yes (1) - GASTROINTESTINAL Hx Gastrointestinal Disorders: No - GENITOURINARY/GYNECOLOGICAL Hx Genitourinary Disorders: Yes Hx Incontinence: Yes - PSYCHIATRIC Hx Psychophysiologic Disorder: No Hx Substance Use: No - SURGICAL HISTORY Hx Orthopedic Surgery: Yes (Right DONELL, Right revision DONELL) - ANESTHESIA Hx Anesthesia: Yes Hx Anesthesia Reactions: No Hx Malignant Hyperthermia: No Meds Allergies/Adverse Reactions: Allergies Allergy/AdvReac Type Severity Reaction Status Date / Time milk Allergy RASH Verified 04/10/18 11:44 - Medications Medications: Current Medications Acetaminophen (Tylenol 325mg Tab) 2 mg PO Q4 PRN PRN Reason: Pain, moderate (4-7) Carbidopa/Levodopa (Sinemet) 2 tab PO Q12 [facility] Last Admin: 04/11/18 10:39 Dose: Not Given Docusate Sodium (Colace) 200 mg PO DAILY PRN PRN Reason: Constipation Ergocalciferol (Drisdol 50,000 Intl Units Cap) 1 cap PO QWK [facility] Vancomycin HCl 1 gm/ Sodium (Chloride) 250 mls @ 166.667 mls/hr IVPB Q12H [facility] PRN Reason: Protocol Last Admin: 04/11/18 11:28 Dose: 166.667 mls/hr Cefepime HCl 2 gm/ Sodium (Chloride) 100 mls @ 100 mls/hr IVPB Q12 [facility] PRN Reason: Protocol Last Admin: 04/11/18 11:28 Dose: 100 mls/hr Lactobacillus Acidophilus (Bacid Acidophilus) 1 cap PO DAILY [facility] Last Admin: 04/11/18 10:39 Dose: Not Given Oxycodone/Acetaminophen (Percocet 5/325 Mg Tab) 1 tab PO Q4 PRN PRN Reason: Pain, moderate (4-7) Stop: 04/13/18 21:01 Last Admin: 04/10/18 21:11 Dose: 1 tab Tamsulosin HCl (Flomax) 0.4 mg PO DAILY [facility] Last Admin: 04/11/18 10:39 Dose: Not Given Physical Exam - Respiratory Exam Respiratory Exam: Clear to Auscultation Bilateral - Cardiovascular Exam Cardiovascular Exam: REGULAR RHYTHM, +S1, +S2 - Extremities Exam Additional comments: NO SIGNIFICANT LE EDEMA - Additional Findings Additional findings: EKG NSR CXR NAD LABS NOTED Results - Vital Signs Recent Vital Signs: Last Vital Signs Temp 98.3 F 04/11/18 15:55 Pulse 63 04/11/18 15:55 Resp 20 04/11/18 15:55 BP 113/68 04/11/18 15:55 Pulse Ox 96 04/11/18 15:55 - Labs Result Diagrams: 04/11/18 05:35 04/11/18 05:35 Labs: Laboratory Results - last 24 hr 04/10/18 04/10/18 04/10/18 14:35 14:35 14:35 WBC RBC Hgb Hct MCV MCH MCHC RDW Plt Count ESR 105 H Sodium Potassium Chloride Carbon Dioxide Anion Gap BUN Creatinine Est GFR ( Amer) Est GFR (Non-Af Amer) Random Glucose Calcium Total Bilirubin AST ALT Alkaline Phosphatase C-React Prot High Sens > 15.00 H Total Protein Albumin Globulin Albumin/Globulin Ratio Blood Type O POSITIVE Antibody Screen Negative Crossmatch See Detail BBK History Checked No verified bt 04/11/18 04/11/18 05:35 05:35 WBC 4.0 L RBC 3.52 L Hgb 11.0 L Hct 32.5 L MCV 92.3 MCH 31.2 H MCHC 33.8 RDW 14.9 H Plt Count 299 ESR 83 H Sodium 136 Potassium 4.2 Chloride 99 Carbon Dioxide 27 Anion Gap 14 BUN 13 Creatinine 0.4 L Est GFR ( Amer) > 60 Est GFR (Non-Af Amer) > 60 Random Glucose 86 Calcium 9.1 Total Bilirubin 0.5 AST 15 L ALT 18 L D Alkaline Phosphatase 63 C-React Prot High Sens Total Protein 6.9 Albumin 3.3 L Globulin 3.6 Albumin/Globulin Ratio 0.9 L Blood Type Antibody Screen Crossmatch BBK History Checked Assessment & Plan - Assessment and Plan (Free Text) Assessment: S/P RIGHT THR WITH DRAINAGE PARKINSONISM Plan: CONTINUE ANTIBIOTICS THE PATIENT IS CLEAR FOR SURGERY
--- NOTE | 2018-04-11 23:42 | CP.PCM.PN ---
Subjective - Date & Time of Evaluation Date of Evaluation: 04/11/18 Time of Evaluation: 19:35 - Subjective Subjective: Pt seen & examined at bedside Objective - Vital Signs/Intake and Output Vital Signs (last 24 hours): Temp Pulse Resp BP Pulse Ox 98.3 F 63 20 113/68 96 04/11/18 15:55 04/11/18 15:55 04/11/18 15:55 04/11/18 15:55 04/11/18 15:55 - Medications Medications: Current Medications Acetaminophen (Tylenol 325mg Tab) 2 mg PO Q4 PRN PRN Reason: Pain, moderate (4-7) Carbidopa/Levodopa (Sinemet) 2 tab PO Q12 [facility] Last Admin: 04/11/18 21:57 Dose: 2 tab Docusate Sodium (Colace) 200 mg PO DAILY PRN PRN Reason: Constipation Ergocalciferol (Drisdol 50,000 Intl Units Cap) 1 cap PO QWK [facility] Vancomycin HCl 1 gm/ Sodium (Chloride) 250 mls @ 166.667 mls/hr IVPB Q12H [facility] PRN Reason: Protocol Last Admin: 04/11/18 21:57 Dose: 166.667 mls/hr Cefepime HCl 2 gm/ Sodium (Chloride) 100 mls @ 100 mls/hr IVPB Q12 [facility] PRN Reason: Protocol Last Admin: 04/11/18 21:56 Dose: 100 mls/hr Lactobacillus Acidophilus (Bacid Acidophilus) 1 cap PO DAILY [facility] Last Admin: 04/11/18 10:39 Dose: Not Given Oxycodone/Acetaminophen (Percocet 5/325 Mg Tab) 1 tab PO Q4 PRN PRN Reason: Pain, moderate (4-7) Stop: 04/13/18 21:01 Last Admin: 04/10/18 21:11 Dose: 1 tab Tamsulosin HCl (Flomax) 0.4 mg PO DAILY [facility] Last Admin: 04/11/18 10:39 Dose: Not Given - Labs Labs: 04/11/18 05:35 04/11/18 05:35 PT 11.4 Seconds (9.8-13.1) 04/10/18 14:35 INR 1.0 (0.9-1.2) 04/10/18 14:35 APTT 32.1 Seconds (25.6-37.1) 04/10/18 14:35
--- NOTE | 2018-04-12 08:00 | CP.PCM.PN ---
Subjective - Date & Time of Evaluation Date of Evaluation: 04/12/18 Time of Evaluation: 07:45 - Subjective Subjective: Patient seen and examined at bedside comfortable. Pain well controlled. No new complaints. Objective - Vital Signs/Intake and Output Vital Signs (last 24 hours): Temp Pulse Resp BP Pulse Ox 98.6 F 62 19 95/62 L 96 04/11/18 23:53 04/11/18 23:53 04/11/18 23:53 04/11/18 23:53 04/11/18 23:53 - Medications Medications: Current Medications Acetaminophen (Tylenol 325mg Tab) 2 mg PO Q4 PRN PRN Reason: Pain, moderate (4-7) Carbidopa/Levodopa (Sinemet) 2 tab PO Q12 [facility] Last Admin: 04/11/18 21:57 Dose: 2 tab Docusate Sodium (Colace) 200 mg PO DAILY PRN PRN Reason: Constipation Ergocalciferol (Drisdol 50,000 Intl Units Cap) 1 cap PO QWK [facility] Vancomycin HCl 1 gm/ Sodium (Chloride) 250 mls @ 166.667 mls/hr IVPB Q12H [facility] PRN Reason: Protocol Last Admin: 04/11/18 21:57 Dose: 166.667 mls/hr Cefepime HCl 2 gm/ Sodium (Chloride) 100 mls @ 100 mls/hr IVPB Q12 [facility] PRN Reason: Protocol Last Admin: 04/11/18 21:56 Dose: 100 mls/hr Lactobacillus Acidophilus (Bacid Acidophilus) 1 cap PO DAILY [facility] Last Admin: 04/11/18 10:39 Dose: Not Given Oxycodone/Acetaminophen (Percocet 5/325 Mg Tab) 1 tab PO Q4 PRN PRN Reason: Pain, moderate (4-7) Stop: 04/13/18 21:01 Last Admin: 04/10/18 21:11 Dose: 1 tab Tamsulosin HCl (Flomax) 0.4 mg PO DAILY [facility] Last Admin: 04/11/18 10:39 Dose: Not Given - Labs Labs: 04/11/18 05:35 04/11/18 05:35 PT 11.4 Seconds (9.8-13.1) 04/10/18 14:35 INR 1.0 (0.9-1.2) 04/10/18 14:35 APTT 32.1 Seconds (25.6-37.1) 04/10/18 14:35 Assessment and Plan (1) Wound drainage Status: Acute
--- NOTE | 2018-04-12 08:11 | CP.PCM.PN ---
Subjective - Date & Time of Evaluation Date of Evaluation: 04/12/18 Time of Evaluation: 08:00 - Subjective Subjective: S- pt comfortable- no pain whatsoever R hip Objective - Vital Signs/Intake and Output Vital Signs (last 24 hours): Temp Pulse Resp BP Pulse Ox 98.6 F 62 19 95/62 L 96 04/11/18 23:53 04/11/18 23:53 04/11/18 23:53 04/11/18 23:53 04/11/18 23:53 - Medications Medications: Current Medications Acetaminophen (Tylenol 325mg Tab) 2 mg PO Q4 PRN PRN Reason: Pain, moderate (4-7) Carbidopa/Levodopa (Sinemet) 2 tab PO Q12 [facility] Last Admin: 04/11/18 21:57 Dose: 2 tab Docusate Sodium (Colace) 200 mg PO DAILY PRN PRN Reason: Constipation Ergocalciferol (Drisdol 50,000 Intl Units Cap) 1 cap PO QWK [facility] Vancomycin HCl 1 gm/ Sodium (Chloride) 250 mls @ 166.667 mls/hr IVPB Q12H [facility] PRN Reason: Protocol Last Admin: 04/11/18 21:57 Dose: 166.667 mls/hr Cefepime HCl 2 gm/ Sodium (Chloride) 100 mls @ 100 mls/hr IVPB Q12 [facility] PRN Reason: Protocol Last Admin: 04/11/18 21:56 Dose: 100 mls/hr Lactobacillus Acidophilus (Bacid Acidophilus) 1 cap PO DAILY [facility] Last Admin: 04/11/18 10:39 Dose: Not Given Oxycodone/Acetaminophen (Percocet 5/325 Mg Tab) 1 tab PO Q4 PRN PRN Reason: Pain, moderate (4-7) Stop: 04/13/18 21:01 Last Admin: 04/10/18 21:11 Dose: 1 tab Tamsulosin HCl (Flomax) 0.4 mg PO DAILY [facility] Last Admin: 04/11/18 10:39 Dose: Not Given - Labs Labs: 04/11/18 05:35 04/11/18 05:35 PT 11.4 Seconds (9.8-13.1) 04/10/18 14:35 INR 1.0 (0.9-1.2) 04/10/18 14:35 APTT 32.1 Seconds (25.6-37.1) 04/10/18 14:35 - Additional Findings Additional findings: Objective afenrile so signs of systemic sepsis Musculoskeletal stance/gait- defrred ROM PAINLESS minimal drainage this am resp[onding to dressing xhanges Assessment and Plan - Assessment and Plan (Free Text) Assessment: A- s/p L THR with minimal drainagfe today P- will see how pt responds to conservative mkanagement- if drainagfe continues with IV abios, then I+D and possible insertion of abio impreganted spacer
--- NOTE | 2018-04-12 09:11 | CP.PCM.PN ---
Subjective - Date & Time of Evaluation Date of Evaluation: 04/12/18 Time of Evaluation: 08:45 - Subjective Subjective: NO NEW COMPLAINTS Objective - Vital Signs/Intake and Output Vital Signs (last 24 hours): Temp Pulse Resp BP Pulse Ox 98.6 F 62 19 95/62 L 96 04/11/18 23:53 04/11/18 23:53 04/11/18 23:53 04/11/18 23:53 04/11/18 23:53 - Medications Medications: Current Medications Acetaminophen (Tylenol 325mg Tab) 2 mg PO Q4 PRN PRN Reason: Pain, moderate (4-7) Carbidopa/Levodopa (Sinemet) 2 tab PO Q12 [facility] Last Admin: 04/11/18 21:57 Dose: 2 tab Docusate Sodium (Colace) 200 mg PO DAILY PRN PRN Reason: Constipation Ergocalciferol (Drisdol 50,000 Intl Units Cap) 1 cap PO QWK [facility] Vancomycin HCl 1 gm/ Sodium (Chloride) 250 mls @ 166.667 mls/hr IVPB Q12H [facility] PRN Reason: Protocol Last Admin: 04/11/18 21:57 Dose: 166.667 mls/hr Cefepime HCl 2 gm/ Sodium (Chloride) 100 mls @ 100 mls/hr IVPB Q12 [facility] PRN Reason: Protocol Last Admin: 04/11/18 21:56 Dose: 100 mls/hr Lactobacillus Acidophilus (Bacid Acidophilus) 1 cap PO DAILY [facility] Last Admin: 04/11/18 10:39 Dose: Not Given Oxycodone/Acetaminophen (Percocet 5/325 Mg Tab) 1 tab PO Q4 PRN PRN Reason: Pain, moderate (4-7) Stop: 04/13/18 21:01 Last Admin: 04/10/18 21:11 Dose: 1 tab Tamsulosin HCl (Flomax) 0.4 mg PO DAILY [facility] Last Admin: 04/11/18 10:39 Dose: Not Given - Labs Labs: 04/11/18 05:35 04/11/18 05:35 PT 11.4 Seconds (9.8-13.1) 04/10/18 14:35 INR 1.0 (0.9-1.2) 04/10/18 14:35 APTT 32.1 Seconds (25.6-37.1) 04/10/18 14:35 - Respiratory Exam Respiratory Exam: Clear to Ausculation Bilateral - Cardiovascular Exam Cardiovascular Exam: REGULAR RHYTHM, +S1, +S2 - Additional Findings Additional findings: DR AGUILAR'S NOTE REVIEWED AND PATIENT HAS MINIMAL DRAINAGE TODAY WITH DRESSING CHANGES AND ANTIBIOTICS Assessment and Plan - Assessment and Plan (Free Text) Assessment: S/P RIGHT HIP REPLACEMENT AND SURGICAL SITE DRAINAGE PARKINSONISM Plan: CONTINUE IV ANTIBIOTICS
[2018-04-12] MEDS: Ergocalciferol 50,000 Intl Units Cap PO SCH (09:50)
[2018-04-12] MEDS: Lactobacillus Acidophilus 500 MU Cap PO SCH (10:35)
[2018-04-12] MEDS: Cefepime 2 GM in Sodium Chloride 0.9% 100 ML IVPB SCH ×2 (10:36→21:13)
[2018-04-12] MEDS ORDERED: Oxycodone/Acetaminophen 5/325 mg Tab PO PRN (11:02)
--- NOTE | 2018-04-12 11:21 | CP.PCM.PN ---
Subjective - Date & Time of Evaluation Date of Evaluation: 04/12/18 Time of Evaluation: 09:00 - Subjective Subjective: afeb alertr nad cultures pending Objective - Vital Signs/Intake and Output Vital Signs (last 24 hours): Temp Pulse Resp BP Pulse Ox 99 F 62 18 105/63 99 04/12/18 09:00 04/12/18 09:00 04/12/18 09:00 04/12/18 09:00 04/12/18 09:00 - Medications Medications: Current Medications Acetaminophen (Tylenol 325mg Tab) 2 mg PO Q4 PRN PRN Reason: Pain, moderate (4-7) Carbidopa/Levodopa (Sinemet) 2 tab PO Q12 [facility] Last Admin: 04/12/18 10:35 Dose: 2 tab Docusate Sodium (Colace) 200 mg PO DAILY PRN PRN Reason: Constipation Ergocalciferol (Drisdol 50,000 Intl Units Cap) 1 cap PO QWK [facility] Last Admin: 04/12/18 09:50 Dose: 1 cap Vancomycin HCl 1 gm/ Sodium (Chloride) 250 mls @ 166.667 mls/hr IVPB Q12H [facility] PRN Reason: Protocol Last Admin: 04/12/18 09:50 Dose: 166.667 mls/hr Cefepime HCl 2 gm/ Sodium (Chloride) 100 mls @ 100 mls/hr IVPB Q12 [facility] PRN Reason: Protocol Last Admin: 04/12/18 10:36 Dose: 100 mls/hr Lactobacillus Acidophilus (Bacid Acidophilus) 1 cap PO DAILY [facility] Last Admin: 04/12/18 10:35 Dose: 1 cap Oxycodone/Acetaminophen (Percocet 5/325 Mg Tab) 1 tab PO Q4 PRN PRN Reason: Pain, moderate (4-7) Stop: 04/13/18 21:01 Last Admin: 04/10/18 21:11 Dose: 1 tab Oxycodone/Acetaminophen (Percocet 5/325 Mg Tab) 1 tab PO Q6 PRN PRN Reason: Pain, moderate (4-7) Stop: 04/15/18 11:03 Tamsulosin HCl (Flomax) 0.4 mg PO DAILY [facility] Last Admin: 04/12/18 09:51 Dose: 0.4 mg - Labs Labs: 04/11/18 05:35 04/11/18 05:35 PT 11.4 Seconds (9.8-13.1) 04/10/18 14:35 INR 1.0 (0.9-1.2) 04/10/18 14:35 APTT 32.1 Seconds (25.6-37.1) 04/10/18 14:35 - Constitutional Appears: Non-toxic, Chronically Ill - Head Exam Head Exam: NORMOCEPHALIC - Eye Exam Eye Exam: absent: Scleral icterus - ENT Exam ENT Exam: Mucous Membranes Dry - Neck Exam Neck Exam: absent: Lymphadenopathy - Respiratory Exam Respiratory Exam: Decreased Breath Sounds - Cardiovascular Exam Cardiovascular Exam: REGULAR RHYTHM - GI/Abdominal Exam GI & Abdominal Exam: Distended - Rectal Exam Rectal Exam: Deferred - Exam Exam: NORMAL INSPECTION - Extremities Exam Extremities Exam: absent: Pedal Edema - Back Exam Back Exam: absent: CVA tenderness (L), CVA tenderness (R) Assessment and Plan (1) Wound drainage Status: Acute
--- NOTE | 2018-04-12 18:59 | CP.PCM.HP ---
History of Present Illness - History of Present Illness History of Present Illness: CC: s/p surgery wound drainnage History of Present Illness: A 72 y/o M c PMHx Parkinson's disease, anemia, & seizure has a history of a right total hip replacement performed on 01/17/18 and returned to the OR for a revision right total hip replacement due to infected prosthesis on 01/31/18. He has been treated with IV antibiotics through his RUE PICC line since his revision surgery.This time patient presented with R hip pain with erythema and discharge of pus, gradually worsening over the last week. States seen by Dr. Umana 1 week prior and informed appears well. Patient was then instructed to come to ED for further evaluation of the hip for possible infection over this weekend. He denies fever, chills, dyspnea, vomiting. Present on Admission - Present on Admission Any Indicators Present on Admission: No Review of Systems - Review of Systems All systems: reviewed and no additional remarkable complaints except Past Patient History - Past Medical History & Family History Past Medical History?: Yes Past Family History: Reviewed and not pertinent - Past Social History Smoking Status: Never Smoked Alcohol: None Drugs: Denies - CARDIAC Hx Cardiac Disorders: No - PULMONARY Hx Respiratory Disorders: No - NEUROLOGICAL Hx Neurological Disorder: Yes Hx Parkinson's Disease: Yes - HEENT Hx HEENT Problems: No - RENAL Hx Chronic Kidney Disease: No - ENDOCRINE/METABOLIC Hx Endocrine Disorders: No - HEMATOLOGICAL/ONCOLOGICAL Hx Blood Disorders: No Hx Anemia: Yes - INTEGUMENTARY Hx Dermatological Problems: No - MUSCULOSKELETAL/RHEUMATOLOGICAL Hx Musculoskeletal Disorders: Yes Hx Falls: Yes (1) - GASTROINTESTINAL Hx Gastrointestinal Disorders: No - GENITOURINARY/GYNECOLOGICAL Hx Genitourinary Disorders: Yes Hx Incontinence: Yes - PSYCHIATRIC Hx Psychophysiologic Disorder: No Hx Substance Use: No - SURGICAL HISTORY Hx Orthopedic Surgery: Yes (Right DONELL, Right revision DONELL) - ANESTHESIA Hx Anesthesia: Yes Hx Anesthesia Reactions: No Hx Malignant Hyperthermia: No Meds Allergies/Adverse Reactions: Allergies Allergy/AdvReac Type Severity Reaction Status Date / Time milk Allergy RASH Verified 04/10/18 11:44 Physical Exam - Constitutional Appears: No Acute Distress, Chronically Ill, Other (Tremor) - Head Exam Head Exam: ATRAUMATIC, NORMAL INSPECTION, NORMOCEPHALIC - Eye Exam Eye Exam: EOMI, Normal appearance, PERRL Pupil Exam: NORMAL ACCOMODATION, PERRL - ENT Exam ENT Exam: Mucous Membranes Moist, Normal Exam - Neck Exam Neck exam: Positive for: Normal Inspection - Respiratory Exam Respiratory Exam: Clear to Auscultation Bilateral, NORMAL BREATHING PATTERN - Cardiovascular Exam Cardiovascular Exam: REGULAR RHYTHM, +S1, +S2 - GI/Abdominal Exam GI & Abdominal Exam: Hernia (nonincarcerated inguinal), Normal Bowel Sounds, Soft. absent: Tenderness - Extremities Exam Extremities exam: Positive for: full ROM, normal inspection - Back Exam Back exam: NORMAL INSPECTION - Neurological Exam Neurological exam: Alert, CN II-XII Intact, Normal Gait, Oriented x3, Reflexes Normal - Psychiatric Exam Psychiatric exam: Normal Affect, Normal Mood - Skin Skin Exam: Dry, Intact, Normal Color, Warm Results - Vital Signs Recent Vital Signs: Last Vital Signs Temp 97.8 F 04/12/18 16:14 Pulse 87 04/12/18 16:14 Resp 20 04/12/18 16:14 BP 106/55 L 04/12/18 16:14 Pulse Ox 98 04/12/18 16:14 - Labs Result Diagrams: 04/13/18 05:40 04/13/18 05:40 Labs: Laboratory Results - last 24 hr 04/12/18 04/12/18 04/12/18 06:05 06:05 06:05 ESR 84 H Procalcitonin < 0.05 L Vancomycin Trough HIV 1&2 Antibody Screen Negative 04/12/18 06:05 ESR Procalcitonin Vancomycin Trough 11.5 H HIV 1&2 Antibody Screen - EKG Data EKG shows normal: Sinus rhythm, QRS complexes, ST-T waves Rate: Normal - Imaging and Cardiology Right Hip CT: Status: Report reviewed by me Additional comment: CT right hip (04/10/18): HISTORY: with IV contrast, R hip surgery COMPARISON: Not available TECHNIQUE: 2.5 mm contiguous axial sections were acquired through the right hip. Sagittal and coronal images were reformatted from the axial scan. FINDINGS: Patient is status post right hip arthroplasty. Knee prosthesis appears intact. There is no evidence of prosthesis loosening. There is no acute osseous fracture appreciated. There is normal situation of the femoral head component within the acetabular cup. Within the incision wounds in there is a small ill-defined fluid collection just beneath the skin surface, measuring roughly 1.8 x 1.3 cm. There is a small amount of gas seen within this collection. The contours of the collection are poorly delineated due to lack of adequate enhancement. This may reflect abscess or a mix of abscess and phlegmon. No other collection is identified elsewhere. Incidentally noted is a right inguinal hernia containing cecum and terminal ileum. There is no evidence of bowel obstruction on this limited evaluation of the bowel. Also of note is a calcified structure or collection of calcifications at the right bladder base. Uncertain significance. Diffusely thickened bladder wall though this may be partially due to artifact from inadequate distention. IMPRESSION: Right hip arthroplasty. No evidence of fracture or prosthesis loosening. Small collection of fluid/ phlegmon and a small amount of gas immediately beneath the skin surface at the incision site, 1.8 cm greatest dimension. Right inguinal hernia containing cecum and terminal ileum. Nonspecific calcification at the right bladder base. Thickened bladder wall, nonspecific. See above. Chest x-ray Status: Report reviewed by me Additional comment: IMPRESSION: No active disease. Assessment & Plan (1) Wound drainage Assessment and Plan: Right Hip Arthroplasty and Revision Wound Care Daily IV Cefepime and Vancomycin Vanco T/P Pain Medication PRN Ortho, ID and Cardiology on Board Treatment Attempt with IV, Antibiotics, and Possible Wash if Drainage Persist Status: Acute Priority: High (2) Parkinsonism Status: Chronic Priority: Medium (3) Vitamin D deficiency Status: Chronic Priority: Low
--- NOTE | 2018-04-12 19:00 | CP.PCM.PN ---
Subjective - Date & Time of Evaluation Date of Evaluation: 04/12/18 Time of Evaluation: 18:15 - Subjective Subjective: Seen and examined at the bed side. Minima drainage and no pain at the Surgical site. Denies fever or chills. Agreeable for wound Washout and Revision, and Antibiotic spacer at the Prosthesis site if the need arises. Objective - Vital Signs/Intake and Output Vital Signs (last 24 hours): Temp Pulse Resp BP Pulse Ox 97.8 F 87 20 106/55 L 98 04/12/18 16:14 04/12/18 16:14 04/12/18 16:14 04/12/18 16:14 04/12/18 16:14 - Medications Medications: Current Medications Acetaminophen (Tylenol 325mg Tab) 2 mg PO Q4 PRN PRN Reason: Pain, moderate (4-7) Carbidopa/Levodopa (Sinemet) 2 tab PO Q12 [facility] Last Admin: 04/12/18 10:35 Dose: 2 tab Docusate Sodium (Colace) 200 mg PO DAILY PRN PRN Reason: Constipation Ergocalciferol (Drisdol 50,000 Intl Units Cap) 1 cap PO QWK [facility] Last Admin: 04/12/18 09:50 Dose: 1 cap Vancomycin HCl 1 gm/ Sodium (Chloride) 250 mls @ 166.667 mls/hr IVPB Q12H [facility] PRN Reason: Protocol Last Admin: 04/12/18 09:50 Dose: 166.667 mls/hr Cefepime HCl 2 gm/ Sodium (Chloride) 100 mls @ 100 mls/hr IVPB Q12 [facility] PRN Reason: Protocol Last Admin: 04/12/18 10:36 Dose: 100 mls/hr Lactobacillus Acidophilus (Bacid Acidophilus) 1 cap PO DAILY [facility] Last Admin: 04/12/18 10:35 Dose: 1 cap Oxycodone/Acetaminophen (Percocet 5/325 Mg Tab) 1 tab PO Q4 PRN PRN Reason: Pain, moderate (4-7) Stop: 04/13/18 21:01 Last Admin: 04/10/18 21:11 Dose: 1 tab Oxycodone/Acetaminophen (Percocet 5/325 Mg Tab) 1 tab PO Q6 PRN PRN Reason: Pain, moderate (4-7) Stop: 04/15/18 11:03 Tamsulosin HCl (Flomax) 0.4 mg PO DAILY [facility] Last Admin: 04/12/18 09:51 Dose: 0.4 mg - Labs Labs: 04/11/18 05:35 04/11/18 05:35 PT 11.4 Seconds (9.8-13.1) 04/10/18 14:35 INR 1.0 (0.9-1.2) 04/10/18 14:35 APTT 32.1 Seconds (25.6-37.1) 04/10/18 14:35 - Constitutional Appears: No Acute Distress, Chronically Ill - Head Exam Head Exam: ATRAUMATIC, NORMAL INSPECTION, NORMOCEPHALIC - Eye Exam Eye Exam: EOMI, Normal appearance, PERRL Pupil Exam: NORMAL ACCOMODATION, PERRL - ENT Exam ENT Exam: Mucous Membranes Moist, Normal Exam - Neck Exam Neck Exam: Full ROM, Normal Inspection. absent: Lymphadenopathy - Respiratory Exam Respiratory Exam: Clear to Ausculation Bilateral, NORMAL BREATHING PATTERN - Cardiovascular Exam Cardiovascular Exam: REGULAR RHYTHM, +S1, +S2. absent: Murmur - GI/Abdominal Exam GI & Abdominal Exam: Soft, Normal Bowel Sounds. absent: Tenderness - Extremities Exam Extremities Exam: absent: Pedal Edema Additional comments: Right Hip Surgical scar with minimal Erythem and discharge - Back Exam Back Exam: NORMAL INSPECTION - Neurological Exam Neurological Exam: Alert, Awake, CN II-XII Intact, Oriented x3 Additional comments: +tremor. +Tremor. - Psychiatric Exam Psychiatric exam: Normal Affect, Normal Mood - Skin Skin Exam: Erythema, Intact, Normal Color, Rash, Warm Additional comments: at the wound site Assessment and Plan (1) Wound drainage Assessment & Plan: Continue Current Care Scheduled for 04/14/18 if drainage Persists. Status: Acute (2) Parkinsonism Status: Chronic (3) Vitamin D deficiency Status: Chronic
[2018-04-13 06:18] LABS: HEMOGLOBIN 11.2 g/dL (12.0-18.0); MEAN CELL VOLUME 93.3 fl (80.0-94.0); MEAN CORPUSCULAR HEMOGLOBIN 31.2 pg (27.0-31.0); MEAN CORPUSCULAR HGB CONC 33.4 g/dL (33.0-37.0); RBC 3.59 Mil/uL (4.40-5.90); RED CELL DISTRIBUTION WIDTH 14.5 % (11.5-14.5)
[2018-04-13 06:30] LABS: ALBUMIN 3.5 g/dL (3.5-5.0); ALT/SGPT 16 U/L (21-72); AST/SGOT 26 U/L (17-59); BLOOD UREA NITROGEN 16 mg/dl (9-20); CALCIUM 9.1 mg/dL (8.4-10.2); GFR AFRICAN-AMERICAN > 60; GFR NON-AFRICAN AMERICAN > 60
[2018-04-13] MEDS: Lactobacillus Acidophilus 500 MU Cap PO SCH (09:08)
[2018-04-13] MEDS: Cefepime 2 GM in Sodium Chloride 0.9% 100 ML IVPB SCH ×2 (09:08→20:14)
[2018-04-14 06:10] LABS: MEAN CELL VOLUME 93.4 fl (80.0-94.0); MEAN CORPUSCULAR HEMOGLOBIN 30.9 pg (27.0-31.0); RBC 3.55 Mil/uL (4.40-5.90); RED CELL DISTRIBUTION WIDTH 14.8 % (11.5-14.5); WHITE BLOOD COUNT 5.8 K/uL (4.8-10.8)
--- NOTE | 2018-04-14 06:33 | CP.PCM.PN ---
Subjective - Date & Time of Evaluation Date of Evaluation: 04/13/18 Time of Evaluation: 23:05 - Subjective Subjective: NO New compliant. Cardiology Clearance appreciated. Objective - Vital Signs/Intake and Output Vital Signs (last 24 hours): Temp Pulse Resp BP Pulse Ox 97.5 F L 66 18 101/55 L 99 04/14/18 01:00 04/14/18 01:00 04/14/18 01:00 04/14/18 01:00 04/14/18 01:00 - Medications Medications: Current Medications Acetaminophen (Tylenol 325mg Tab) 2 mg PO Q4 PRN PRN Reason: Pain, moderate (4-7) Carbidopa/Levodopa (Sinemet) 2 tab PO Q12 [facility] Last Admin: 04/13/18 20:14 Dose: 2 tab Docusate Sodium (Colace) 200 mg PO DAILY PRN PRN Reason: Constipation Ergocalciferol (Drisdol 50,000 Intl Units Cap) 1 cap PO QWK [facility] Last Admin: 04/12/18 09:50 Dose: 1 cap Vancomycin HCl 1 gm/ Sodium (Chloride) 250 mls @ 166.667 mls/hr IVPB Q12H [facility] PRN Reason: Protocol Last Admin: 04/13/18 22:22 Dose: 166.667 mls/hr Cefepime HCl 2 gm/ Sodium (Chloride) 100 mls @ 100 mls/hr IVPB Q12 [facility] PRN Reason: Protocol Last Admin: 04/13/18 20:14 Dose: 100 mls/hr Lactobacillus Acidophilus (Bacid Acidophilus) 1 cap PO DAILY [facility] Last Admin: 04/13/18 09:08 Dose: 1 cap Oxycodone/Acetaminophen (Percocet 5/325 Mg Tab) 1 tab PO Q6 PRN PRN Reason: Pain, moderate (4-7) Stop: 04/15/18 11:03 Tamsulosin HCl (Flomax) 0.4 mg PO DAILY [facility] Last Admin: 04/13/18 09:08 Dose: 0.4 mg - Labs Labs: 04/14/18 05:20 04/13/18 05:40 PT 11.4 Seconds (9.8-13.1) 04/10/18 14:35 INR 1.0 (0.9-1.2) 04/10/18 14:35 APTT 32.1 Seconds (25.6-37.1) 04/10/18 14:35 - Constitutional Appears: No Acute Distress, Chronically Ill - Head Exam Head Exam: ATRAUMATIC, NORMAL INSPECTION, NORMOCEPHALIC - Eye Exam Eye Exam: EOMI, Normal appearance, PERRL Pupil Exam: NORMAL ACCOMODATION, PERRL - ENT Exam ENT Exam: Mucous Membranes Moist, Normal Exam - Neck Exam Neck Exam: Full ROM, Normal Inspection. absent: Lymphadenopathy - Respiratory Exam Respiratory Exam: Clear to Ausculation Bilateral, NORMAL BREATHING PATTERN - Cardiovascular Exam Cardiovascular Exam: REGULAR RHYTHM, +S1, +S2. absent: Murmur - GI/Abdominal Exam GI & Abdominal Exam: Soft, Normal Bowel Sounds. absent: Tenderness - Extremities Exam Extremities Exam: Normal Inspection, Tenderness Additional comments: Right Hip drainage and erythema with surgical scar.. - Back Exam Back Exam: Full ROM, NORMAL INSPECTION - Neurological Exam Neurological Exam: Alert, Awake, CN II-XII Intact, Normal Gait, Oriented x3 - Psychiatric Exam Psychiatric exam: Normal Affect, Normal Mood - Skin Skin Exam: Dry, Intact, Normal Color, Warm Assessment and Plan (1) Wound drainage Assessment & Plan: Continue Current Treatment Medically Cleared for Right Hip Washout and Revision with Acceptable Risk. CBC with Diff, & CMP. Status: Acute (2) Parkinsonism Status: Chronic (3) Vitamin D deficiency Status: Chronic
[2018-04-14 06:45] LABS: BLOOD UREA NITROGEN 16 mg/dl (9-20); GFR AFRICAN-AMERICAN > 60; GFR NON-AFRICAN AMERICAN > 60
[2018-04-14] MEDS: Lactobacillus Acidophilus 500 MU Cap PO SCH (08:36)
[2018-04-14] MEDS: Cefepime 2 GM in Sodium Chloride 0.9% 100 ML IVPB SCH (08:37)
--- NOTE | 2018-04-14 08:47 | CP.PCM.PN ---
Subjective - Date & Time of Evaluation Date of Evaluation: 04/14/18 Time of Evaluation: 08:00 - Subjective Subjective: NO CHEST PAIN OR SOB FEELS OK Objective - Vital Signs/Intake and Output Vital Signs (last 24 hours): Temp Pulse Resp BP Pulse Ox 97.7 F 82 20 107/64 98 04/14/18 08:15 04/14/18 08:15 04/14/18 08:15 04/14/18 08:15 04/14/18 08:15 - Medications Medications: Current Medications Acetaminophen (Tylenol 325mg Tab) 2 mg PO Q4 PRN PRN Reason: Pain, moderate (4-7) Carbidopa/Levodopa (Sinemet) 2 tab PO Q12 [facility] Last Admin: 04/14/18 08:44 Dose: Not Given Docusate Sodium (Colace) 200 mg PO DAILY PRN PRN Reason: Constipation Ergocalciferol (Drisdol 50,000 Intl Units Cap) 1 cap PO QWK [facility] Last Admin: 04/12/18 09:50 Dose: 1 cap Vancomycin HCl 1 gm/ Sodium (Chloride) 250 mls @ 166.667 mls/hr IVPB Q12H [facility] PRN Reason: Protocol Last Admin: 04/13/18 22:22 Dose: 166.667 mls/hr Cefepime HCl 2 gm/ Sodium (Chloride) 100 mls @ 100 mls/hr IVPB Q12 [facility] PRN Reason: Protocol Last Admin: 04/14/18 08:37 Dose: 100 mls/hr Lactobacillus Acidophilus (Bacid Acidophilus) 1 cap PO DAILY [facility] Last Admin: 04/14/18 08:36 Dose: Not Given Oxycodone/Acetaminophen (Percocet 5/325 Mg Tab) 1 tab PO Q6 PRN PRN Reason: Pain, moderate (4-7) Stop: 04/15/18 11:03 Tamsulosin HCl (Flomax) 0.4 mg PO DAILY [facility] Last Admin: 04/14/18 08:44 Dose: Not Given - Labs Labs: 04/14/18 05:20 04/14/18 05:20 PT 11.4 Seconds (9.8-13.1) 04/10/18 14:35 INR 1.0 (0.9-1.2) 04/10/18 14:35 APTT 32.1 Seconds (25.6-37.1) 04/10/18 14:35 - Respiratory Exam Respiratory Exam: Clear to Ausculation Bilateral - Cardiovascular Exam Cardiovascular Exam: REGULAR RHYTHM, +S1, +S2 - Extremities Exam Additional comments: NO SIGNIFICANT LE EDEMA Assessment and Plan - Assessment and Plan (Free Text) Assessment: S/P RIGHT THR WITH IRAINAGE PARKINSONISM Plan: FOR SURGERY TODAY
[2018-04-14] MEDS ORDERED: ceFAZolin IV 2 gm in Dextrose 0 GM/0 ML BAG IVPB ONE (10:52)
[2018-04-14] MEDS ORDERED: Bacitracin Ointment 30 GM TUBE ONE (10:52)
[2018-04-14] MEDS ORDERED: GELATIN SPONGE,ABSORB/PORCINE 1 EACH SPONGE TP ONE (10:52)
[2018-04-14] MEDS ORDERED: Thrombin Topical 5,000 Int Units Spray Kit ONE (10:52)
[2018-04-14] MEDS ORDERED: Propofol 10 mg/ml Inj (20 ML) ONE (11:12)
[2018-04-14] MEDS ORDERED: Rocuronium 10 mg/ml (5 ml) ONE (11:13)
[2018-04-14] MEDS ORDERED: Phenylephrine 10 mg/ml Inj ONE (11:13)
[2018-04-14] MEDS ORDERED: Lidocaine 4% (Laryng-O-Jet) Kit MM ONE (11:13)
[2018-04-14] MEDS ORDERED: Neostigmine 1:1000 (1 mg/ml) Inj ONE (11:13)
[2018-04-14] MEDS ORDERED: Ropivacaine 0.5% 30ML IV ONE (11:25)
[2018-04-14] MEDS ORDERED: Tranexamic Acid 1,000 MG in Sodium Chloride 0.9% 100 ML IVPB SCH (12:00)
--- NOTE | 2018-04-14 12:34 | CP.PCM.PN ---
Subjective - Date & Time of Evaluation Date of Evaluation: 04/14/18 Time of Evaluation: 12:30 - Subjective Subjective: S- PT EXTREMELY UPSET when told of the fact that surgery would be delayed because of heat and humidity in OR- Pt refusers surgery adamantly. Is reconsdierin gthe entire surgical option Objective - Vital Signs/Intake and Output Vital Signs (last 24 hours): Temp Pulse Resp BP Pulse Ox 97.7 F 82 20 107/64 98 04/14/18 08:15 04/14/18 08:15 04/14/18 08:15 04/14/18 08:15 04/14/18 08:15 - Medications Medications: Current Medications Acetaminophen (Tylenol 325mg Tab) 2 mg PO Q4 PRN PRN Reason: Pain, moderate (4-7) Carbidopa/Levodopa (Sinemet) 2 tab PO Q12 [facility] Last Admin: 04/14/18 08:44 Dose: Not Given Docusate Sodium (Colace) 200 mg PO DAILY PRN PRN Reason: Constipation Ergocalciferol (Drisdol 50,000 Intl Units Cap) 1 cap PO QWK [facility] Last Admin: 04/12/18 09:50 Dose: 1 cap Vancomycin HCl 1 gm/ Sodium (Chloride) 250 mls @ 166.667 mls/hr IVPB Q12H [facility] PRN Reason: Protocol Last Admin: 04/14/18 10:25 Dose: 166.667 mls/hr Cefepime HCl 2 gm/ Sodium (Chloride) 100 mls @ 100 mls/hr IVPB Q12 [facility] PRN Reason: Protocol Last Admin: 04/14/18 08:37 Dose: 100 mls/hr Tranexamic Acid 1,000 mg/ (Sodium Chloride) 110 mls @ 12.5 mls/hr IVPB Q2 [facility] Stop: 04/14/18 15:59 Lactobacillus Acidophilus (Bacid Acidophilus) 1 cap PO DAILY [facility] Last Admin: 04/14/18 08:36 Dose: Not Given Oxycodone/Acetaminophen (Percocet 5/325 Mg Tab) 1 tab PO Q6 PRN PRN Reason: Pain, moderate (4-7) Stop: 04/15/18 11:03 Tamsulosin HCl (Flomax) 0.4 mg PO DAILY [facility] Last Admin: 04/14/18 08:44 Dose: Not Given - Labs Labs: 04/14/18 05:20 04/14/18 05:20 PT 11.4 Seconds (9.8-13.1) 04/10/18 14:35 INR 1.0 (0.9-1.2) 04/10/18 14:35 APTT 32.1 Seconds (25.6-37.1) 04/10/18 14:35 - Additional Findings Additional findings: Objective physical exam unchanged PT with increased anxiety and is tremulous at the time of evaluation Assessment and Plan - Assessment and Plan (Free Text) Assessment: A- speic R THR P- cancel surgery beqacuse pt will nbot consent. Pt is extremely agitated. Not sure he wishes surgery to be rescheduled. PT told surgery would be delayed until later this afternoon because of EXTREME TEMPERATURE AND HUMIDITY IN THE OR
--- NOTE | 2018-04-14 19:36 | CP.PCM.PN ---
Subjective - Date & Time of Evaluation Date of Evaluation: 04/14/18 Time of Evaluation: 09:00 - Subjective Subjective: OR cancelled awake alert NAD Objective - Vital Signs/Intake and Output Vital Signs (last 24 hours): Temp Pulse Resp BP Pulse Ox 97.8 F 69 18 99/51 L 98 04/14/18 16:34 04/14/18 16:34 04/14/18 16:34 04/14/18 16:34 04/14/18 16:34 - Medications Medications: Current Medications Acetaminophen (Tylenol 325mg Tab) 2 mg PO Q4 PRN PRN Reason: Pain, moderate (4-7) Carbidopa/Levodopa (Sinemet) 2 tab PO Q12 [facility] Last Admin: 04/14/18 10:00 Dose: 2 tab Docusate Sodium (Colace) 200 mg PO DAILY PRN PRN Reason: Constipation Ergocalciferol (Drisdol 50,000 Intl Units Cap) 1 cap PO QWK [facility] Last Admin: 04/12/18 09:50 Dose: 1 cap Vancomycin HCl 1 gm/ Sodium (Chloride) 250 mls @ 166.667 mls/hr IVPB Q12H [facility] PRN Reason: Protocol Last Admin: 04/14/18 10:25 Dose: 166.667 mls/hr Cefepime HCl 2 gm/ Sodium (Chloride) 100 mls @ 100 mls/hr IVPB Q12 [facility] PRN Reason: Protocol Last Admin: 04/14/18 08:37 Dose: 100 mls/hr Lactobacillus Acidophilus (Bacid Acidophilus) 1 cap PO DAILY [facility] Last Admin: 04/14/18 08:36 Dose: Not Given Oxycodone/Acetaminophen (Percocet 5/325 Mg Tab) 1 tab PO Q6 PRN PRN Reason: Pain, moderate (4-7) Stop: 04/15/18 11:03 Tamsulosin HCl (Flomax) 0.4 mg PO DAILY [facility] Last Admin: 04/14/18 08:44 Dose: Not Given - Labs Labs: 04/14/18 05:20 04/14/18 05:20 PT 11.4 Seconds (9.8-13.1) 04/10/18 14:35 INR 1.0 (0.9-1.2) 04/10/18 14:35 APTT 32.1 Seconds (25.6-37.1) 04/10/18 14:35 - Constitutional Appears: Non-toxic, Chronically Ill - Head Exam Head Exam: NORMOCEPHALIC - Eye Exam Eye Exam: PERRL - ENT Exam ENT Exam: Mucous Membranes Dry - Neck Exam Neck Exam: absent: Lymphadenopathy - Respiratory Exam Respiratory Exam: Decreased Breath Sounds - Cardiovascular Exam Cardiovascular Exam: REGULAR RHYTHM - GI/Abdominal Exam GI & Abdominal Exam: Distended - Rectal Exam Rectal Exam: Deferred - Exam Exam: NORMAL INSPECTION - Extremities Exam Extremities Exam: absent: Pedal Edema - Back Exam Back Exam: NORMAL INSPECTION. absent: CVA tenderness (L), CVA tenderness (R) - Neurological Exam Neurological Exam: Alert, Awake, CN II-XII Intact, Motor Sensory Deficit, Oriented x3. absent: Reflexes Normal Neuro motor strength exam: Left Upper Extremity: 3, Right Upper Extremity: 3, Left Lower Extremity: 3, Right Lower Extremity: 3 - Psychiatric Exam Psychiatric exam: Anxious Assessment and Plan (1) Wound drainage Status: Acute - Assessment and Plan (Free Text) Assessment: c/s + enterococcus cont iv antibiotics and wound care possible OR in am
--- NOTE | 2018-04-15 08:19 | CP.PCM.PN ---
Subjective - Date & Time of Evaluation Date of Evaluation: 04/15/18 Time of Evaluation: 08:16 - Subjective Subjective: Patient states he is comfortable. No new complaints. Objective - Vital Signs/Intake and Output Vital Signs (last 24 hours): Temp Pulse Resp BP Pulse Ox 97.8 F 62 18 114/61 99 04/15/18 00:00 04/15/18 00:00 04/15/18 00:00 04/15/18 00:00 04/15/18 00:00 - Medications Medications: Current Medications Acetaminophen (Tylenol 325mg Tab) 2 mg PO Q4 PRN PRN Reason: Pain, moderate (4-7) Carbidopa/Levodopa (Sinemet) 2 tab PO Q12 [facility] Last Admin: 04/14/18 21:35 Dose: 2 tab Docusate Sodium (Colace) 200 mg PO DAILY PRN PRN Reason: Constipation Ergocalciferol (Drisdol 50,000 Intl Units Cap) 1 cap PO QWK [facility] Last Admin: 04/12/18 09:50 Dose: 1 cap Vancomycin HCl 1 gm/ Sodium (Chloride) 250 mls @ 166.667 mls/hr IVPB Q12H [facility] PRN Reason: Protocol Last Admin: 04/14/18 22:52 Dose: 166.667 mls/hr Piperacillin Sod/Tazobactam (Sod 2.25 gm/ Sodium Chloride) 100 mls @ 100 mls/ hr IVPB Q8@0500,1300,2000 [facility] PRN Reason: Protocol Last Admin: 04/15/18 05:30 Dose: 100 mls/hr Lactobacillus Acidophilus (Bacid Acidophilus) 1 cap PO DAILY [facility] Last Admin: 04/14/18 08:36 Dose: Not Given Oxycodone/Acetaminophen (Percocet 5/325 Mg Tab) 1 tab PO Q6 PRN PRN Reason: Pain, moderate (4-7) Stop: 04/15/18 11:03 Tamsulosin HCl (Flomax) 0.4 mg PO DAILY [facility] Last Admin: 04/14/18 08:44 Dose: Not Given - Labs Labs: 04/14/18 05:20 04/14/18 05:20 PT 11.4 Seconds (9.8-13.1) 04/10/18 14:35 INR 1.0 (0.9-1.2) 04/10/18 14:35 APTT 32.1 Seconds (25.6-37.1) 04/10/18 14:35 - Extremities Exam Additional comments: right hip: continued serous drainage. Betadine wet to dry dressing change. +ROM lance/toes, sensation intact, +DP/PT pulses, calves soft NT neg homans Assessment and Plan (1) Wound drainage Assessment & Plan: daily betadine wet to dry dressing changes antibiotics as per ID plan as per Dr. Umana, surgery yesterday cancelled due to high humidity in OR Status: Acute
[2018-04-15] MEDS: Lactobacillus Acidophilus 500 MU Cap PO SCH (09:24)
--- NOTE | 2018-04-15 09:50 | CP.PCM.PN ---
Subjective - Date & Time of Evaluation Date of Evaluation: 04/15/18 Time of Evaluation: 08:45 - Subjective Subjective: NO CHEST PAIN OR SOB FEELS OK Objective - Vital Signs/Intake and Output Vital Signs (last 24 hours): Temp Pulse Resp BP Pulse Ox 97.6 F 64 18 112/63 95 04/15/18 08:13 04/15/18 08:13 04/15/18 08:13 04/15/18 08:13 04/15/18 08:13 - Medications Medications: Current Medications Acetaminophen (Tylenol 325mg Tab) 2 mg PO Q4 PRN PRN Reason: Pain, moderate (4-7) Carbidopa/Levodopa (Sinemet) 2 tab PO Q12 [facility] Last Admin: 04/14/18 21:35 Dose: 2 tab Docusate Sodium (Colace) 200 mg PO DAILY PRN PRN Reason: Constipation Ergocalciferol (Drisdol 50,000 Intl Units Cap) 1 cap PO QWK [facility] Last Admin: 04/12/18 09:50 Dose: 1 cap Vancomycin HCl 1 gm/ Sodium (Chloride) 250 mls @ 166.667 mls/hr IVPB Q12H [facility] PRN Reason: Protocol Last Admin: 04/15/18 09:31 Dose: 166.667 mls/hr Piperacillin Sod/Tazobactam (Sod 2.25 gm/ Sodium Chloride) 100 mls @ 100 mls/ hr IVPB Q8@0500,1300,2000 [facility] PRN Reason: Protocol Last Admin: 04/15/18 05:30 Dose: 100 mls/hr Lactobacillus Acidophilus (Bacid Acidophilus) 1 cap PO DAILY [facility] Last Admin: 04/15/18 09:24 Dose: 1 cap Oxycodone/Acetaminophen (Percocet 5/325 Mg Tab) 1 tab PO Q6 PRN PRN Reason: Pain, moderate (4-7) Stop: 04/15/18 11:03 Tamsulosin HCl (Flomax) 0.4 mg PO DAILY [facility] Last Admin: 04/15/18 09:24 Dose: 0.4 mg - Labs Labs: 04/14/18 05:20 04/14/18 05:20 PT 11.4 Seconds (9.8-13.1) 04/10/18 14:35 INR 1.0 (0.9-1.2) 04/10/18 14:35 APTT 32.1 Seconds (25.6-37.1) 04/10/18 14:35 - Respiratory Exam Respiratory Exam: Clear to Ausculation Bilateral - Cardiovascular Exam Cardiovascular Exam: REGULAR RHYTHM, +S1, +S2 Assessment and Plan - Assessment and Plan (Free Text) Assessment: RIGHT HIP DRAINAGE PARKINSONISM Plan: SURGERY WAS CANCELLED YESTERDAY DUE TO HIGH OR HUMIDITY AND WAS RESCHEDULED FOR WEDNESDAY
--- NOTE | 2018-04-15 13:17 | CP.PCM.PN ---
Subjective - Date & Time of Evaluation Date of Evaluation: 04/15/18 Time of Evaluation: 09:00 - Subjective Subjective: IV rx in progress awake alert NAD Objective - Vital Signs/Intake and Output Vital Signs (last 24 hours): Temp Pulse Resp BP Pulse Ox 97.6 F 64 18 112/63 95 04/15/18 08:13 04/15/18 08:13 04/15/18 08:13 04/15/18 08:13 04/15/18 08:13 - Medications Medications: Current Medications Acetaminophen (Tylenol 325mg Tab) 2 mg PO Q4 PRN PRN Reason: Pain, moderate (4-7) Carbidopa/Levodopa (Sinemet) 2 tab PO Q12 [facility] Last Admin: 04/15/18 10:55 Dose: 2 tab Docusate Sodium (Colace) 200 mg PO DAILY PRN PRN Reason: Constipation Ergocalciferol (Drisdol 50,000 Intl Units Cap) 1 cap PO QWK [facility] Last Admin: 04/12/18 09:50 Dose: 1 cap Vancomycin HCl 1 gm/ Sodium (Chloride) 250 mls @ 166.667 mls/hr IVPB Q12H [facility] PRN Reason: Protocol Last Admin: 04/15/18 09:31 Dose: 166.667 mls/hr Piperacillin Sod/Tazobactam (Sod 2.25 gm/ Sodium Chloride) 100 mls @ 100 mls/ hr IVPB Q8@0500,1300,2000 [facility] PRN Reason: Protocol Last Admin: 04/15/18 05:30 Dose: 100 mls/hr Lactobacillus Acidophilus (Bacid Acidophilus) 1 cap PO DAILY [facility] Last Admin: 04/15/18 09:24 Dose: 1 cap Tamsulosin HCl (Flomax) 0.4 mg PO DAILY [facility] Last Admin: 04/15/18 09:24 Dose: 0.4 mg - Labs Labs: 04/14/18 05:20 04/14/18 05:20 PT 11.4 Seconds (9.8-13.1) 04/10/18 14:35 INR 1.0 (0.9-1.2) 04/10/18 14:35 APTT 32.1 Seconds (25.6-37.1) 04/10/18 14:35 - Constitutional Appears: Well - Head Exam Head Exam: ATRAUMATIC, NORMAL INSPECTION, NORMOCEPHALIC - Eye Exam Eye Exam: EOMI, Normal appearance, PERRL Pupil Exam: NORMAL ACCOMODATION, PERRL - ENT Exam ENT Exam: Mucous Membranes Moist, Normal Exam - Neck Exam Neck Exam: Full ROM, Normal Inspection. absent: Lymphadenopathy - Respiratory Exam Respiratory Exam: Clear to Ausculation Bilateral, NORMAL BREATHING PATTERN - Cardiovascular Exam Cardiovascular Exam: REGULAR RHYTHM, +S1, +S2. absent: Murmur - GI/Abdominal Exam GI & Abdominal Exam: Soft, Normal Bowel Sounds. absent: Tenderness - Rectal Exam Rectal Exam: NORMAL INSPECTION - Exam Exam: Circumcision, NORMAL INSPECTION - Extremities Exam Extremities Exam: Full ROM, Normal Capillary Refill, Normal Inspection. absent : Joint Swelling, Pedal Edema - Back Exam Back Exam: NORMAL INSPECTION - Neurological Exam Neurological Exam: Alert, Awake, CN II-XII Intact, Motor Sensory Deficit, Oriented x3 - Psychiatric Exam Psychiatric exam: Normal Affect, Normal Mood - Skin Skin Exam: Dry, Intact, Normal Color, Warm Assessment and Plan (1) Wound drainage Status: Acute - Assessment and Plan (Free Text) Assessment: cont rx infected right hip + enterococcus for or washout on Wednesday
--- NOTE | 2018-04-15 23:49 | CP.PCM.PN ---
Subjective - Date & Time of Evaluation Date of Evaluation: 04/15/18 Time of Evaluation: 23:15 Objective - Vital Signs/Intake and Output Vital Signs (last 24 hours): Temp Pulse Resp BP Pulse Ox 98 F 75 20 93/47 L 98 04/15/18 16:26 04/15/18 16:26 04/15/18 16:26 04/15/18 16:26 04/15/18 16:26 - Medications Medications: Current Medications Acetaminophen (Tylenol 325mg Tab) 650 mg PO Q4 PRN PRN Reason: Pain, moderate (4-7) Carbidopa/Levodopa (Sinemet) 2 tab PO Q12 [facility] Last Admin: 04/15/18 21:07 Dose: 2 tab Docusate Sodium (Colace) 200 mg PO DAILY PRN PRN Reason: Constipation Ergocalciferol (Drisdol 50,000 Intl Units Cap) 1 cap PO QWK [facility] Last Admin: 04/12/18 09:50 Dose: 1 cap Vancomycin HCl 1 gm/ Sodium (Chloride) 250 mls @ 166.667 mls/hr IVPB Q12H [facility] PRN Reason: Protocol Last Admin: 04/15/18 22:58 Dose: 166.667 mls/hr Piperacillin Sod/Tazobactam (Sod 2.25 gm/ Sodium Chloride) 100 mls @ 100 mls/ hr IVPB Q8@0500,1300,2000 [facility] PRN Reason: Protocol Last Admin: 04/15/18 20:47 Dose: 100 mls/hr Lactobacillus Acidophilus (Bacid Acidophilus) 1 cap PO DAILY [facility] Last Admin: 04/15/18 09:24 Dose: 1 cap Tamsulosin HCl (Flomax) 0.4 mg PO DAILY [facility] Last Admin: 04/15/18 09:24 Dose: 0.4 mg - Labs Labs: 04/14/18 05:20 04/14/18 05:20 PT 11.4 Seconds (9.8-13.1) 04/10/18 14:35 INR 1.0 (0.9-1.2) 04/10/18 14:35 APTT 32.1 Seconds (25.6-37.1) 04/10/18 14:35 Assessment and Plan (1) Wound drainage Status: Acute (2) Parkinsonism Status: Chronic (3) Vitamin D deficiency Status: Chronic
[2018-04-16] MEDS: Lactobacillus Acidophilus 500 MU Cap PO SCH (08:29)
--- NOTE | 2018-04-16 11:09 | CP.PCM.PN ---
Subjective - Date & Time of Evaluation Date of Evaluation: 04/16/18 Time of Evaluation: 11:00 - Subjective Subjective: S- pt cpomfortable/No increasing R hip pain?no evidence for systemic sepsis Objective - Vital Signs/Intake and Output Vital Signs (last 24 hours): Temp Pulse Resp BP Pulse Ox 97.5 F L 61 20 106/64 98 04/16/18 08:06 04/16/18 08:06 04/16/18 08:06 04/16/18 08:06 04/16/18 08:06 - Medications Medications: Current Medications Acetaminophen (Tylenol 325mg Tab) 650 mg PO Q4 PRN PRN Reason: Pain, moderate (4-7) Carbidopa/Levodopa (Sinemet) 2 tab PO Q12 [facility] Last Admin: 04/16/18 08:29 Dose: 2 tab Docusate Sodium (Colace) 200 mg PO DAILY PRN PRN Reason: Constipation Ergocalciferol (Drisdol 50,000 Intl Units Cap) 1 cap PO QWK [facility] Last Admin: 04/12/18 09:50 Dose: 1 cap Vancomycin HCl 1 gm/ Sodium (Chloride) 250 mls @ 166.667 mls/hr IVPB Q12H [facility] PRN Reason: Protocol Last Admin: 04/16/18 09:55 Dose: 166.667 mls/hr Piperacillin Sod/Tazobactam (Sod 2.25 gm/ Sodium Chloride) 100 mls @ 100 mls/ hr IVPB Q8@0500,1300,2000 [facility] PRN Reason: Protocol Last Admin: 04/16/18 04:58 Dose: 100 mls/hr Lactobacillus Acidophilus (Bacid Acidophilus) 1 cap PO DAILY [facility] Last Admin: 04/16/18 08:29 Dose: 1 cap Tamsulosin HCl (Flomax) 0.4 mg PO DAILY [facility] Last Admin: 04/16/18 08:29 Dose: 0.4 mg - Labs Labs: 04/14/18 05:20 04/14/18 05:20 PT 11.4 Seconds (9.8-13.1) 04/10/18 14:35 INR 1.0 (0.9-1.2) 04/10/18 14:35 APTT 32.1 Seconds (25.6-37.1) 04/10/18 14:35 - Additional Findings Additional findings: Obj afebrile VSS wound better minimal drainage Assessment and Plan - Assessment and Plan (Free Text) Assessment: Spetic THR P_ to OR Wednesday- OR CLOSED TODAY AND YESTERDAY secondary to environmental problems. I am assure situastion to resolve by Wednesday- pt oirthopedciallyu stable no evidence for thromboembolic disease
[2018-04-17] MEDS: Ergocalciferol 50,000 Intl Units Cap PO SCH (08:39)
[2018-04-17] MEDS: Lactobacillus Acidophilus 500 MU Cap PO SCH (08:42)
--- NOTE | 2018-04-17 09:21 | CP.PCM.PN ---
Subjective - Date & Time of Evaluation Date of Evaluation: 04/16/18 Time of Evaluation: 08:05 Objective - Vital Signs/Intake and Output Vital Signs (last 24 hours): Temp Pulse Resp BP Pulse Ox 97.5 F L 75 20 109/64 98 04/17/18 08:03 04/17/18 08:03 04/17/18 08:03 04/17/18 08:03 04/17/18 08:03 - Medications Medications: Current Medications Acetaminophen (Tylenol 325mg Tab) 650 mg PO Q4 PRN PRN Reason: Pain, moderate (4-7) Last Admin: 04/16/18 21:23 Dose: 650 mg Carbidopa/Levodopa (Sinemet) 2 tab PO Q12 [facility] Last Admin: 04/17/18 08:40 Dose: 2 tab Docusate Sodium (Colace) 200 mg PO DAILY PRN PRN Reason: Constipation Last Admin: 04/17/18 08:39 Dose: 200 mg Ergocalciferol (Drisdol 50,000 Intl Units Cap) 1 cap PO QWK [facility] Last Admin: 04/17/18 08:39 Dose: 1 cap Vancomycin HCl 1 gm/ Sodium (Chloride) 250 mls @ 166.667 mls/hr IVPB Q12H [facility] PRN Reason: Protocol Last Admin: 04/17/18 00:17 Dose: 166.667 mls/hr Piperacillin Sod/Tazobactam (Sod 2.25 gm/ Sodium Chloride) 100 mls @ 100 mls/ hr IVPB Q8H [facility] PRN Reason: Protocol Last Admin: 04/17/18 05:35 Dose: 100 mls/hr Lactobacillus Acidophilus (Bacid Acidophilus) 1 cap PO DAILY [facility] Last Admin: 04/17/18 08:42 Dose: 1 cap Tamsulosin HCl (Flomax) 0.4 mg PO DAILY [facility] Last Admin: 04/17/18 08:39 Dose: 0.4 mg - Labs Labs: 04/14/18 05:20 04/14/18 05:20 PT 11.4 Seconds (9.8-13.1) 04/10/18 14:35 INR 1.0 (0.9-1.2) 04/10/18 14:35 APTT 32.1 Seconds (25.6-37.1) 07/01/18 14:35 Assessment and Plan (1) Wound drainage Status: Acute (2) Parkinsonism Status: Chronic (3) Vitamin D deficiency Status: Chronic
--- NOTE | 2018-04-17 11:39 | CP.PCM.PN ---
Subjective - Date & Time of Evaluation Date of Evaluation: 04/17/18 Time of Evaluation: 10:00 - Subjective Subjective: denies fever or chills wound care in progress for or in am Objective - Vital Signs/Intake and Output Vital Signs (last 24 hours): Temp Pulse Resp BP Pulse Ox 97.5 F L 75 20 109/64 98 04/17/18 08:03 04/17/18 08:03 04/17/18 08:03 04/17/18 08:03 04/17/18 08:03 - Medications Medications: Current Medications Acetaminophen (Tylenol 325mg Tab) 650 mg PO Q4 PRN PRN Reason: Pain, moderate (4-7) Last Admin: 04/16/18 21:23 Dose: 650 mg Carbidopa/Levodopa (Sinemet) 2 tab PO Q12 [facility] Last Admin: 04/17/18 08:40 Dose: 2 tab Docusate Sodium (Colace) 200 mg PO DAILY PRN PRN Reason: Constipation Last Admin: 04/17/18 08:39 Dose: 200 mg Ergocalciferol (Drisdol 50,000 Intl Units Cap) 1 cap PO QWK [facility] Last Admin: 04/17/18 08:39 Dose: 1 cap Vancomycin HCl 1 gm/ Sodium (Chloride) 250 mls @ 166.667 mls/hr IVPB Q12H [facility] PRN Reason: Protocol Last Admin: 04/17/18 10:47 Dose: 166.667 mls/hr Piperacillin Sod/Tazobactam (Sod 2.25 gm/ Sodium Chloride) 100 mls @ 100 mls/ hr IVPB Q8H [facility] PRN Reason: Protocol Last Admin: 04/17/18 05:35 Dose: 100 mls/hr Lactobacillus Acidophilus (Bacid Acidophilus) 1 cap PO DAILY [facility] Last Admin: 04/17/18 08:42 Dose: 1 cap Multivitamins/Minerals (Therapeutic-M Tab) 1 tab PO DAILY [facility] Oxycodone/Acetaminophen (Percocet 5/325 Mg Tab) 1 tab PO Q6 PRN PRN Reason: Pain, moderate (4-7) Stop: 04/20/18 11:08 Tamsulosin HCl (Flomax) 0.4 mg PO DAILY [facility] Last Admin: 04/17/18 08:39 Dose: 0.4 mg - Labs Labs: 04/14/18 05:20 04/14/18 05:20 PT 11.4 Seconds (9.8-13.1) 04/10/18 14:35 INR 1.0 (0.9-1.2) 04/10/18 14:35 APTT 32.1 Seconds (25.6-37.1) 04/10/18 14:35 - Constitutional Appears: Non-toxic, Chronically Ill - Head Exam Head Exam: NORMOCEPHALIC - Eye Exam Eye Exam: PERRL - ENT Exam ENT Exam: Mucous Membranes Dry - Neck Exam Neck Exam: absent: Lymphadenopathy - Respiratory Exam Respiratory Exam: Decreased Breath Sounds - Cardiovascular Exam Cardiovascular Exam: REGULAR RHYTHM - GI/Abdominal Exam GI & Abdominal Exam: Distended - Rectal Exam Rectal Exam: Deferred - Exam Exam: NORMAL INSPECTION - Extremities Exam Extremities Exam: absent: Pedal Edema - Back Exam Back Exam: absent: CVA tenderness (L), CVA tenderness (R) - Neurological Exam Neurological Exam: Alert, Awake, Oriented x3 Neuro motor strength exam: Left Upper Extremity: 3, Right Upper Extremity: 3, Left Lower Extremity: 3, Right Lower Extremity: 3 - Psychiatric Exam Psychiatric exam: Depressed Assessment and Plan (1) Wound drainage Status: Acute - Assessment and Plan (Free Text) Assessment: cont iv rx as ordered for OR in am
--- NOTE | 2018-04-17 14:15 | CP.PCM.PN ---
Subjective - Date & Time of Evaluation Date of Evaluation: 04/17/18 Time of Evaluation: 14:00 - Subjective Subjective: S- pt comfortable/no increased pain/no evdience for systemic sepsis Objective - Vital Signs/Intake and Output Vital Signs (last 24 hours): Temp Pulse Resp BP Pulse Ox 97.5 F L 75 20 109/64 98 04/17/18 08:03 04/17/18 08:03 04/17/18 08:03 04/17/18 08:03 04/17/18 08:03 - Medications Medications: Current Medications Acetaminophen (Tylenol 325mg Tab) 650 mg PO Q4 PRN PRN Reason: Pain, moderate (4-7) Last Admin: 04/16/18 21:23 Dose: 650 mg Carbidopa/Levodopa (Sinemet) 2 tab PO Q12 [facility] Last Admin: 04/17/18 08:40 Dose: 2 tab Docusate Sodium (Colace) 200 mg PO DAILY PRN PRN Reason: Constipation Last Admin: 04/17/18 08:39 Dose: 200 mg Ergocalciferol (Drisdol 50,000 Intl Units Cap) 1 cap PO QWK [facility] Last Admin: 04/17/18 08:39 Dose: 1 cap Vancomycin HCl 1 gm/ Sodium (Chloride) 250 mls @ 166.667 mls/hr IVPB Q12H [facility] PRN Reason: Protocol Last Admin: 04/17/18 10:47 Dose: 166.667 mls/hr Piperacillin Sod/Tazobactam (Sod 2.25 gm/ Sodium Chloride) 100 mls @ 100 mls/ hr IVPB Q8H [facility] PRN Reason: Protocol Last Admin: 04/17/18 13:43 Dose: 100 mls/hr Lactobacillus Acidophilus (Bacid Acidophilus) 1 cap PO DAILY [facility] Last Admin: 04/17/18 08:42 Dose: 1 cap Multivitamins/Minerals (Therapeutic-M Tab) 1 tab PO DAILY [facility] Oxycodone/Acetaminophen (Percocet 5/325 Mg Tab) 1 tab PO Q6 PRN PRN Reason: Pain, moderate (4-7) Stop: 04/20/18 11:08 Tamsulosin HCl (Flomax) 0.4 mg PO DAILY [facility] Last Admin: 04/17/18 08:39 Dose: 0.4 mg - Labs Labs: 04/14/18 05:20 04/14/18 05:20 PT 11.4 Seconds (9.8-13.1) 04/10/18 14:35 INR 1.0 (0.9-1.2) 04/10/18 14:35 APTT 32.1 Seconds (25.6-37.1) 04/10/18 14:35 - Additional Findings Additional findings: Objective systemic- afebrile VSS Musculoskektlal wound still draining but decreased ROM painless Assessment and Plan - Assessment and Plan (Free Text) Assessment: A- s/p THR with persiistent drainage P- to OR for incision/drainage/ possible removal implant and insertion of abio spacer Pros/cons risks and benefits discussed at length
[2018-04-17] MEDS: Oxycodone/Acetaminophen 5/325 mg Tab PO PRN (15:20)
--- NOTE | 2018-04-17 16:28 | CP.PCM.PN ---
Subjective - Date & Time of Evaluation Date of Evaluation: 04/17/18 Time of Evaluation: 15:30 - Subjective Subjective: NO CHEST PAIN OR SOB Objective - Vital Signs/Intake and Output Vital Signs (last 24 hours): Temp Pulse Resp BP Pulse Ox 97.5 F L 75 20 109/64 98 04/17/18 08:03 04/17/18 08:03 04/17/18 08:03 04/17/18 08:03 04/17/18 08:03 - Medications Medications: Current Medications Acetaminophen (Tylenol 325mg Tab) 650 mg PO Q4 PRN PRN Reason: Pain, moderate (4-7) Last Admin: 04/16/18 21:23 Dose: 650 mg Carbidopa/Levodopa (Sinemet) 2 tab PO Q12 [facility] Last Admin: 04/17/18 08:40 Dose: 2 tab Docusate Sodium (Colace) 200 mg PO DAILY PRN PRN Reason: Constipation Last Admin: 04/17/18 08:39 Dose: 200 mg Ergocalciferol (Drisdol 50,000 Intl Units Cap) 1 cap PO QWK [facility] Last Admin: 04/17/18 08:39 Dose: 1 cap Vancomycin HCl 1 gm/ Sodium (Chloride) 250 mls @ 166.667 mls/hr IVPB Q12H [facility] PRN Reason: Protocol Last Admin: 04/17/18 10:47 Dose: 166.667 mls/hr Piperacillin Sod/Tazobactam (Sod 2.25 gm/ Sodium Chloride) 100 mls @ 100 mls/ hr IVPB Q8H [facility] PRN Reason: Protocol Last Admin: 04/17/18 13:43 Dose: 100 mls/hr Lactobacillus Acidophilus (Bacid Acidophilus) 1 cap PO DAILY [facility] Last Admin: 04/17/18 08:42 Dose: 1 cap Multivitamins/Minerals (Therapeutic-M Tab) 1 tab PO DAILY [facility] Oxycodone/Acetaminophen (Percocet 5/325 Mg Tab) 1 tab PO Q6 PRN PRN Reason: Pain, moderate (4-7) Stop: 04/20/18 11:08 Last Admin: 04/17/18 15:20 Dose: 1 tab Tamsulosin HCl (Flomax) 0.4 mg PO DAILY [facility] Last Admin: 04/17/18 08:39 Dose: 0.4 mg - Labs Labs: 04/14/18 05:20 04/14/18 05:20 PT 11.4 Seconds (9.8-13.1) 04/10/18 14:35 INR 1.0 (0.9-1.2) 04/10/18 14:35 APTT 32.1 Seconds (25.6-37.1) 04/10/18 14:35 - Respiratory Exam Respiratory Exam: Clear to Ausculation Bilateral - Cardiovascular Exam Cardiovascular Exam: REGULAR RHYTHM, +S1, +S2 Assessment and Plan - Assessment and Plan (Free Text) Assessment: S/P RIGHT THR WITH CONTINUED DRAINAGE Plan: TO OR IN AM
[2018-04-18] MEDS ORDERED: Bacitracin Ointment 30 GM TUBE ONE ×2 (07:43→09:51)
[2018-04-18] MEDS ORDERED: GELATIN SPONGE,ABSORB/PORCINE 1 EACH SPONGE TP ONE (07:43)
[2018-04-18] MEDS ORDERED: Thrombin Topical 5,000 Int Units Spray Kit ONE (07:44)
--- NOTE | 2018-04-18 07:58 | CP.PCM.PN ---
Subjective - Date & Time of Evaluation Date of Evaluation: 04/17/18 Time of Evaluation: 11:10 Objective - Vital Signs/Intake and Output Vital Signs (last 24 hours): Temp Pulse Resp BP Pulse Ox 98.2 F 75 20 119/70 100 04/18/18 07:51 04/18/18 07:51 04/18/18 07:51 04/18/18 07:51 04/18/18 07:51 - Medications Medications: Current Medications Acetaminophen (Tylenol 325mg Tab) 650 mg PO Q4 PRN PRN Reason: Pain, moderate (4-7) Last Admin: 04/16/18 21:23 Dose: 650 mg Carbidopa/Levodopa (Sinemet) 2 tab PO Q12 [facility] Last Admin: 04/17/18 20:38 Dose: 2 tab Docusate Sodium (Colace) 200 mg PO DAILY PRN PRN Reason: Constipation Last Admin: 04/17/18 08:39 Dose: 200 mg Ergocalciferol (Drisdol 50,000 Intl Units Cap) 1 cap PO QWK [facility] Last Admin: 04/17/18 08:39 Dose: 1 cap Vancomycin HCl 1 gm/ Sodium (Chloride) 250 mls @ 166.667 mls/hr IVPB Q12H [facility] PRN Reason: Protocol Last Admin: 04/17/18 22:26 Dose: 166.667 mls/hr Piperacillin Sod/Tazobactam (Sod 2.25 gm/ Sodium Chloride) 100 mls @ 100 mls/ hr IVPB Q8H [facility] PRN Reason: Protocol Last Admin: 04/18/18 04:26 Dose: 100 mls/hr Lactobacillus Acidophilus (Bacid Acidophilus) 1 cap PO DAILY [facility] Last Admin: 04/17/18 08:42 Dose: 1 cap Multivitamins/Minerals (Therapeutic-M Tab) 1 tab PO DAILY [facility] Oxycodone/Acetaminophen (Percocet 5/325 Mg Tab) 1 tab PO Q6 PRN PRN Reason: Pain, moderate (4-7) Stop: 04/20/18 11:08 Last Admin: 04/17/18 15:20 Dose: 1 tab Tamsulosin HCl (Flomax) 0.4 mg PO DAILY [facility] Last Admin: 04/17/18 08:39 Dose: 0.4 mg - Labs Labs: 04/14/18 05:20 04/14/18 05:20 PT 11.4 Seconds (9.8-13.1) 04/10/18 14:35 INR 1.0 (0.9-1.2) 04/10/18 14:35 APTT 32.1 Seconds (25.6-37.1) 04/10/18 14:35 Assessment and Plan (1) Wound drainage Status: Acute (2) Parkinsonism Status: Chronic (3) Vitamin D deficiency Status: Chronic
[2018-04-18] MEDS ORDERED: Gentamicin 80 mg/2mL Inj. ONE (08:16)
[2018-04-18] MEDS ORDERED: Lactated Ringer's 1,000 ML IV ONE ×2 (08:40→10:00)
[2018-04-18] MEDS ORDERED: Rocuronium 10 mg/ml (5 ml) ONE ×3 (08:43→12:03)
[2018-04-18] MEDS ORDERED: Succinylcholine 200 mg/10 ml Inj IV ONE (08:43)
[2018-04-18] MEDS ORDERED: Propofol 10 mg/ml Inj (20 ML) ONE (08:43)
[2018-04-18] MEDS ORDERED: ePHEDrine 50 mg/ml Inj ONE (08:57)
[2018-04-18] MEDS ORDERED: Phenylephrine 10 mg/ml Inj ONE (08:58)
--- NOTE | 2018-04-18 09:06 | CP.PCM.PN ---
Subjective - Date & Time of Evaluation Date of Evaluation: 04/18/18 Time of Evaluation: 07:00 - Subjective Subjective: NO NEW COMPLAINTS Objective - Vital Signs/Intake and Output Vital Signs (last 24 hours): Temp Pulse Resp BP Pulse Ox 98.2 F 75 20 119/70 100 04/18/18 07:51 04/18/18 07:51 04/18/18 07:51 04/18/18 07:51 04/18/18 07:51 - Medications Medications: Current Medications Acetaminophen (Tylenol 325mg Tab) 650 mg PO Q4 PRN PRN Reason: Pain, moderate (4-7) Last Admin: 04/16/18 21:23 Dose: 650 mg Carbidopa/Levodopa (Sinemet) 2 tab PO Q12 [facility] Last Admin: 04/17/18 20:38 Dose: 2 tab Docusate Sodium (Colace) 200 mg PO DAILY PRN PRN Reason: Constipation Last Admin: 04/17/18 08:39 Dose: 200 mg Ergocalciferol (Drisdol 50,000 Intl Units Cap) 1 cap PO QWK [facility] Last Admin: 04/17/18 08:39 Dose: 1 cap Vancomycin HCl 1 gm/ Sodium (Ch[facility]) 250 mls @ 166.667 mls/hr IVPB Q12H [facility] PRN Reason: Protocol Last Admin: 04/17/18 22:26 Dose: 166.667 mls/hr Piperacillin Sod/Tazobactam (Sod 2.25 gm/ Sodium Chloride) 100 mls @ 100 mls/ hr IVPB Q8H [facility] PRN Reason: Protocol Last Admin: 04/18/18 04:26 Dose: 100 mls/hr Lactobacillus Acidophilus (Bacid Acidophilus) 1 cap PO DAILY [facility] Last Admin: 04/17/18 08:42 Dose: 1 cap Multivitamins/Minerals (Therapeutic-M Tab) 1 tab PO DAILY [facility] Oxycodone/Acetaminophen (Percocet 5/325 Mg Tab) 1 tab PO Q6 PRN PRN Reason: Pain, moderate (4-7) Stop: 04/20/18 11:08 Last Admin: 04/17/18 15:20 Dose: 1 tab Tamsulosin HCl (Flomax) 0.4 mg PO DAILY [facility] Last Admin: 04/17/18 08:39 Dose: 0.4 mg - Labs Labs: 04/14/18 05:20 04/14/18 05:20 PT 11.4 Seconds (9.8-13.1) 04/10/18 14:35 INR 1.0 (0.9-1.2) 04/10/18 14:35 APTT 32.1 Seconds (25.6-37.1) 04/10/18 14:35 - Respiratory Exam Respiratory Exam: Clear to Ausculation Bilateral - Cardiovascular Exam Cardiovascular Exam: REGULAR RHYTHM, +S1, +S2 Assessment and Plan - Assessment and Plan (Free Text) Assessment: S/P RIGHT HIP SURGERY WITH DRAINAGE Plan: FOR SURGERY TODAY
[2018-04-18] MEDS: Lactobacillus Acidophilus 500 MU Cap PO SCH (10:05)
[2018-04-18] MEDS: Multivitamin With Minerals Tab PO SCH (10:11)
[2018-04-18] MEDS ORDERED: EPINEPHrine 1 mg/ml (1:1000) Inj ONE ×2 (10:32)
[2018-04-18] MEDS ORDERED: EPINEPHrine 1 mg/ml (1:1000) Inj IV ONE (10:45)
--- NOTE | 2018-04-18 11:30 | CP.PCM.PN ---
Subjective - Date & Time of Evaluation Date of Evaluation: 04/18/18 Time of Evaluation: 08:00 - Subjective Subjective: no fever today Objective - Vital Signs/Intake and Output Vital Signs (last 24 hours): Temp Pulse Resp BP Pulse Ox 98.2 F 75 20 119/70 100 04/18/18 07:51 04/18/18 07:51 04/18/18 07:51 04/18/18 07:51 04/18/18 07:51 - Medications Medications: Current Medications Acetaminophen (Tylenol 325mg Tab) 650 mg PO Q4 PRN PRN Reason: Pain, moderate (4-7) Last Admin: 04/16/18 21:23 Dose: 650 mg Carbidopa/Levodopa (Sinemet) 2 tab PO Q12 [facility] Last Admin: 04/17/18 20:38 Dose: 2 tab Docusate Sodium (Colace) 200 mg PO DAILY PRN PRN Reason: Constipation Last Admin: 04/17/18 08:39 Dose: 200 mg Ergocalciferol (Drisdol 50,000 Intl Units Cap) 1 cap PO QWK [facility] Last Admin: 04/17/18 08:39 Dose: 1 cap Vancomycin HCl 1 gm/ Sodium (Chloride) 250 mls @ 166.667 mls/hr IVPB Q12H [facility] PRN Reason: Protocol Last Admin: 04/17/18 22:26 Dose: 166.667 mls/hr Piperacillin Sod/Tazobactam (Sod 2.25 gm/ Sodium Chloride) 100 mls @ 100 mls/ hr IVPB Q8H [facility] PRN Reason: Protocol Last Admin: 04/18/18 04:26 Dose: 100 mls/hr Lactobacillus Acidophilus (Bacid Acidophilus) 1 cap PO DAILY [facility] Last Admin: 04/18/18 10:05 Dose: Not Given Multivitamins/Minerals (Therapeutic-M Tab) 1 tab PO DAILY [facility] Last Admin: 04/18/18 10:11 Dose: Not Given Oxycodone/Acetaminophen (Percocet 5/325 Mg Tab) 1 tab PO Q6 PRN PRN Reason: Pain, moderate (4-7) Stop: 04/20/18 11:08 Last Admin: 04/17/18 15:20 Dose: 1 tab Tamsulosin HCl (Flomax) 0.4 mg PO DAILY [facility] Last Admin: 04/18/18 10:05 Dose: Not Given - Labs Labs: 04/14/18 05:20 04/14/18 05:20 PT 11.4 Seconds (9.8-13.1) 04/10/18 14:35 INR 1.0 (0.9-1.2) 04/10/18 14:35 APTT 32.1 Seconds (25.6-37.1) 04/10/18 14:35 - Constitutional Appears: Non-toxic, Chronically Ill - Head Exam Head Exam: NORMOCEPHALIC - Eye Exam Eye Exam: PERRL - ENT Exam ENT Exam: Mucous Membranes Dry - Neck Exam Neck Exam: absent: Lymphadenopathy - Respiratory Exam Respiratory Exam: Decreased Breath Sounds - Cardiovascular Exam Cardiovascular Exam: REGULAR RHYTHM - GI/Abdominal Exam GI & Abdominal Exam: Distended - Rectal Exam Rectal Exam: Deferred - Exam Exam: NORMAL INSPECTION - Extremities Exam Extremities Exam: absent: Pedal Edema - Back Exam Back Exam: absent: CVA tenderness (L), CVA tenderness (R) - Neurological Exam Neurological Exam: Alert, Awake, Oriented x3 - Psychiatric Exam Psychiatric exam: Normal Mood - Skin Skin Exam: Dry, Intact Assessment and Plan (1) Wound drainage Status: Acute - Assessment and Plan (Free Text) Assessment: for or and debridement
[2018-04-18 11:54] LABS: FLUID TYPE SYNOVIAL FLUID
[2018-04-18] MEDS ORDERED: Thrombin Topical 5,000 Int Units Spray Kit TOP ONE ×2 (12:00)
[2018-04-18] MEDS ORDERED: Absorbable Gelatin Sponge Size 100 TP ONE (12:00)
[2018-04-18 12:39] LABS: SF GROSS APPEARANCE TURBID (CLEAR); SYNOVIAL FLUID COMMENT GROSSLY BLOODY
[2018-04-18 12:46] LABS: SYNOVIAL FLUID MONO/MACROPHAGE 3 % (0-0)
[2018-04-18] MEDS ORDERED: Neostigmine 1:1000 (1 mg/ml) Inj ONE (14:24)
[2018-04-18] MEDS ORDERED: HYDROmorphone 0.5 mg/0.5 ml ISec IVP PRN ×2 (15:06→15:14)
[2018-04-18 15:38] LABS: FLUID TYPE SYNOVIAL FLUID
--- NOTE | 2018-04-18 16:23 | RAD ---
Date of service: 04/18/2018 PROCEDURE: Fluoroscopy up to 1 hr. HISTORY: HIP COMPARISON: None TECHNIQUE: Standard protocol for this study/examination. FINDINGS: Total fluoroscopic time (continuous mode) utilized during the procedure (seconds) 18.5. IMPRESSION: Total exam DLP: (mGy) 1.85.
--- NOTE | 2018-04-18 16:34 | PCM.SURG1 ---
Surgeon's Initial Post Op Note - Surgeon's Notes Surgeon: Dong Roll Edge Machine Operator: TAYLOR Sandoval/ 2nd assist Kimberly Arteaga Type of Anesthesia: General Endo Anesthesia Administered By: Dr Parker Taylor Pre-Operative Diagnosis: R/O septic THR (deep sepsis) Operative Findings: R/O septic THR. exuberant heterotopic ossification. severe synovitis Post-Operative Diagnosis: as above Operation Performed: Revision THR Right. excision heterotpic ossification. partial synovectomy. release iliopsoas tendon. excision skin/subcutaneous tissue/ muscle Specimen/Specimens Removed: bone /synovium/skin subcutaenous tissue/ muscle Estimated Blood Loss: EBL {In ML}: 1,100 Blood Products Given: PRBC Drains Used: Wound Vac Post-Op Condition: Fair Date of Surgery/Procedure: 04/18/18 Time of Surgery/Procedure: 10:25 (time in room/anaesthesia indcution time 8:40)
[2018-04-18 16:49] LABS: SF GROSS APPEARANCE BLOODY (CLEAR); SYNOVIAL FLUID COMMENT BLOODY
[2018-04-18 16:56] LABS: SYNOVIAL FLUID MONO/MACROPHAGE 11 % (0-0)
--- NOTE | 2018-04-18 17:03 | RAD ---
Right hip and pelvis History: Right hip revision. Postoperative radiograph. Comparison: CT from 04/11/2018. Findings: Right hip femoral and acetabular prostheses noted. Surrounding subcutaneous air likely from recent postsurgical status. Surgical emma along the skin surface. Impression: Postoperative radiograph s/p revision of the right hip replacement.
[2018-04-18] MEDS ORDERED: Sodium Chloride 0.9% 500 ML IV ONE (17:24)
[2018-04-18] MEDS: Lactated Ringer's 1,000 ML IV SCH (17:39)
[2018-04-18 18:02] LABS: BASO % 0.2 % (0.0-2.0); EOS # 0.1 K/uL (0.0-0.7); EOS % 0.5 % (0.0-4.0); HEMOGLOBIN 10.9 g/dL (12.0-18.0); LYMPH # 1.7 K/uL (1.0-4.3); MEAN CELL VOLUME 93.7 fl (80.0-94.0); MEAN CORPUSCULAR HEMOGLOBIN 30.4 pg (27.0-31.0); MEAN CORPUSCULAR HGB CONC 32.5 g/dL (33.0-37.0); MEAN PLATELET VOLUME 6.7 fl (7.2-11.7); MONO % 5.4 % (0.0-10.0); NEUT # 14.6 K/uL (1.8-7.0); NEUT % 83.9 % (50.0-75.0); RBC 3.58 Mil/uL (4.40-5.90); RED CELL DISTRIBUTION WIDTH 16.4 % (11.5-14.5); WHITE BLOOD COUNT 17.5 K/uL (4.8-10.8)
[2018-04-18 18:28] LABS: INR 1.1 (0.9-1.2); PARTIAL THROMBOPLASTIN TIME 27.8 Seconds (25.6-37.1)
[2018-04-18 18:49] LABS: ALB/GLOB RATIO 1.1 (1.0-2.1); ALBUMIN 2.9 g/dL (3.5-5.0); ALT/SGPT 22 U/L (21-72); AST/SGOT 24 U/L (17-59); BLOOD UREA NITROGEN 16 mg/dl (9-20); CALCIUM 8.5 mg/dL (8.4-10.2); GFR AFRICAN-AMERICAN > 60; GFR NON-AFRICAN AMERICAN > 60
[2018-04-18] MEDS: Oxycodone/Acetaminophen 5/325 mg Tab PO PRN (20:48)
[2018-04-19] MEDS: Lactated Ringer's 1,000 ML IV SCH (01:30)
[2018-04-19] MEDS: Oxycodone/Acetaminophen 5/325 mg Tab PO PRN ×4 (03:01→22:35)
[2018-04-19 05:28] LABS: HEMOGLOBIN 8.3 g/dL (12.0-18.0); MEAN CELL VOLUME 91.8 fl (80.0-94.0); MEAN CORPUSCULAR HEMOGLOBIN 31.3 pg (27.0-31.0); MEAN CORPUSCULAR HGB CONC 34.1 g/dL (33.0-37.0); RBC 2.66 Mil/uL (4.40-5.90); RED CELL DISTRIBUTION WIDTH 15.9 % (11.5-14.5)
[2018-04-19 05:58] LABS: ALBUMIN 2.6 g/dL (3.5-5.0); ALT/SGPT 16 U/L (21-72); AST/SGOT 32 U/L (17-59); BLOOD UREA NITROGEN 21 mg/dl (9-20); CALCIUM 8.2 mg/dL (8.4-10.2); GFR AFRICAN-AMERICAN > 60; GFR NON-AFRICAN AMERICAN > 60
[2018-04-19] MEDS ORDERED: Sodium Chloride 0.9% 500 ML IV ONE (05:59)
--- NOTE | 2018-04-19 06:03 | CP.PCM.PCO ---
Physician Communication Note - Physician Communication Note Physician Communication Note: SBP in 80s. Administer 500mls bolus NS
--- NOTE | 2018-04-19 08:17 | CP.PCM.PN ---
Subjective - Date & Time of Evaluation Date of Evaluation: 04/18/18 Time of Evaluation: 14:45 - Subjective Subjective: Seen and examined at the bed side. Hypotension to SBP 80's post-Op and On Ringer 's Lactate. Stat IVF Bolus 500 cc and Labs requested. Denies dizziness, palpitation or chest pain. Objective - Vital Signs/Intake and Output Vital Signs (last 24 hours): Temp Pulse Resp BP Pulse Ox 97.6 F 68 16 93/49 L 100 04/19/18 05:00 04/19/18 05:00 04/19/18 05:00 04/19/18 05:00 04/19/18 05:00 - Medications Medications: Current Medications Acetaminophen (Tylenol 325mg Tab) 650 mg PO Q4 PRN PRN Reason: Pain, moderate (4-7) Last Admin: 04/16/18 21:23 Dose: 650 mg Carbidopa/Levodopa (Sinemet) 2 tab PO Q12 [facility] Last Admin: 04/18/18 21:18 Dose: 2 tab Docusate Sodium (Colace) 200 mg PO DAILY PRN PRN Reason: Constipation Last Admin: 04/17/18 08:39 Dose: 200 mg Enoxaparin Sodium (Lovenox) 40 mg SC Q24H [facility] PRN Reason: Protocol Ergocalciferol (Drisdol 50,000 Intl Units Cap) 1 cap PO QWK [facility] Last Admin: 04/17/18 08:39 Dose: 1 cap Hydromorphone HCl (Dilaudid) 1 mg IVP Q4 PRN PRN Reason: Pain, moderate (4-7) Vancomycin HCl 1 gm/ Sodium (Chloride) 250 mls @ 166.667 mls/hr IVPB Q12H [facility] PRN Reason: Protocol Last Admin: 04/19/18 01:18 Dose: 166.667 mls/hr Piperacillin Sod/Tazobactam (Sod 2.25 gm/ Sodium Chloride) 100 mls @ 100 mls/ hr IVPB Q8H [facility] PRN Reason: Protocol Last Admin: 04/19/18 06:00 Dose: 100 mls/hr Sodium Chloride (Sodium Chloride 0.9%) 1,000 mls @ 125 mls/hr IV .Q8H [facility] Stop: 04/20/18 06:00 Lactobacillus Acidophilus (Bacid Acidophilus) 1 cap PO DAILY [facility] Last Admin: 04/18/18 10:05 Dose: Not Given Multivitamins/Minerals (Therapeutic-M Tab) 1 tab PO DAILY [facility] Last Admin: 04/18/18 10:11 Dose: Not Given Oxycodone/Acetaminophen (Percocet 5/325 Mg Tab) 1 tab PO Q6 PRN PRN Reason: Pain, moderate (4-7) Stop: 04/20/18 11:08 Last Admin: 04/19/18 03:01 Dose: 1 tab Tamsulosin HCl (Flomax) 0.4 mg PO DAILY [facility] Last Admin: 04/18/18 10:05 Dose: Not Given - Labs Labs: 04/19/18 04:20 04/19/18 04:20 PT 12.0 Seconds (9.8-13.1) 04/18/18 17:45 INR 1.1 (0.9-1.2) 04/18/18 17:45 APTT 27.8 Seconds (25.6-37.1) 04/18/18 17:45 - Constitutional Appears: No Acute Distress, Chronically Ill - Head Exam Head Exam: ATRAUMATIC, NORMAL INSPECTION, NORMOCEPHALIC - Eye Exam Eye Exam: EOMI, Normal appearance, PERRL Pupil Exam: NORMAL ACCOMODATION, PERRL - ENT Exam ENT Exam: Mucous Membranes Moist, Normal Exam - Neck Exam Neck Exam: Full ROM, Normal Inspection. absent: Lymphadenopathy - Respiratory Exam Respiratory Exam: Clear to Ausculation Bilateral, NORMAL BREATHING PATTERN - Cardiovascular Exam Cardiovascular Exam: REGULAR RHYTHM, +S1, +S2. absent: Murmur - GI/Abdominal Exam GI & Abdominal Exam: Soft, Normal Bowel Sounds. absent: Tenderness - Extremities Exam Additional comments: Right Hip Wound dressed and clean dressing - Back Exam Back Exam: NORMAL INSPECTION - Neurological Exam Neurological Exam: Alert, Awake, CN II-XII Intact, Normal Gait, Oriented x3 - Psychiatric Exam Psychiatric exam: Normal Affect, Normal Mood - Skin Skin Exam: Dry, Intact, Normal Color, Warm Assessment and Plan (1) Wound drainage Assessment & Plan: S/P Revision Right Hip Continue IV Antibiotics Pain Medication PRN PT/OT Wound Care daily Status: Acute (2) Acute blood loss anemia Assessment & Plan: Hypotension IVF Bolus Transfuse PRBCs Monitor H/H Status: Acute (3) Parkinsonism Status: Chronic (4) Vitamin D deficiency Status: Chronic
[2018-04-19] MEDS: Sodium Chloride 0.9% 1,000 ML IV SCH ×3 (08:44→23:43)
[2018-04-19] MEDS: Multivitamin With Minerals Tab PO SCH (08:45)
[2018-04-19] MEDS: Lactobacillus Acidophilus 500 MU Cap PO SCH (08:49)
--- NOTE | 2018-04-19 09:58 | OP ---
PROCEDURE DATE: 04/18/2018 PREOPERATIVE DIAGNOSIS: Rule out septic right total hip replacement. POSTOPERATIVE DIAGNOSIS: Rule out septic right total hip replacement with no evidence for deep sepsis and with well fixed total hip components. POSTOPERATIVE DIAGNOSIS: Superficial sepsis, right total hip replacement. No evidence for deep sepsis, exuberant synovitis, or heterotopic ossification. OPERATION PERFORMED: 1. Revision of total hip replacement, right, both acetabular and femoral components. 2. Excision of heterotopic ossification. 3. Partial synovectomy. 4. Release of iliopsoas tendon. 5. Excision of skin and subcutaneous tissue and muscle. 6. Application of wound VAC. SPECIMENS: Bone, synovium, skin, subcutaneous muscle, subcutaneous tissue. ESTIMATED BLOOD LOSS: 1100 mL. BLOOD PRODUCTS GIVEN: 3 units of packed red blood cells. DRAIN USED: A TIFFANY wound VAC. POSTOPERATIVE CONDITION: Stable. TIME OF SURGERY: Time in the room: 08:40. Incision time: 10:25. OPERATIVE INDICATION: Ross Martinez is a 72-year-old gentleman who is admitted from subacute nursing facility with drainage of the right hip. Pros, cons, risks, and benefits of revision hip replacement arthroplasty were discussed. Possible complete revision and insertion of antibiotic spacer, possible partial revision depending on the findings at surgery. Medical stabilization had been accomplished. Surgery was canceled once because of operating room closure because of the temperature and humidity. Pros, cons, risks, and benefits were discussed at length; the possibility of leg length inequality, nerve injury, mechanical failure, infection, thromboembolic disease. Possibility of later recurrent sepsis was discussed which, again, includes explant and insertion of antibiotic-impregnated spacer. OPERATIVE PROCEDURE: After having obtained informed consent in the above fashion, after having identified the side, site, and procedure and the critical pause/time-out, after the satisfactory induction of the anesthetic and making sure that all bony prominences were well padded, the right lower extremity was prepped and free draped in the usual fashion for lower extremity anterior approach surgery. The Focus IP traction positioner was employed. This having been accomplished prior to prepping and draping, under the surgeon's direction, the fluoroscope was positioned, video images were generated, therapeutic decisions were made therefrom. This having been accomplished, the original incision was extended two fingerbreadths proximally and down to the lateral aspect of the thigh in the so-called lightning bolt fashion. An ellipse of skin and subcutaneous tissue and muscle was excised. The incision was carried out laterally in the area of the thigh. Skin and subcutaneous tissue and muscle were excised and the incision was extended in the so-called lightning bolt fashion. The skin incision was carried down through the skin and subcutaneous tissue. This having been accomplished proximally, again, the tensor fascia femoris muscle was identified. It was basically difficult to bluntly dissect the tensor fascia femoris muscle because of the previous two operations. The fascia was identified and was grasped with an Allis clamped and using the electrocautery. The anterior border of the tensor fascia femoris muscle was carefully divided and released from the investing fascia. Posteriorly, the same was accomplished. Again, the reflected head of rectus femoris had been released, and that is an area of scar. The scar was excised. Incision was carried out. The Medacta retractor was placed and the component was identified by palpation through the capsule. This having been accomplished, the preoperative x-rays were again reviewed, and if there is an excessive amount of heterotopic ossification which has scarred in the capsule, this is going to make dislocation of the prosthesis very difficult. At this point in time, the plane deep to the rectus femoris was identified exposing the scarred in capsule. The Medacta retractor was placed deeper, Weitlaner retractor was placed at the distal aspect of the wound/Gelpi retractor. This having been accomplished, the capsulotomy was accomplished extending from the acetabulum. Medially, the Hohmann retractors were placed and a partial capsulotomy was accomplished, and this was elevated to the area of the trochanter. There was massive heterotopic ossification in the area of the greater trochanter. There was no evidence of sepsis in the bone. The bone still very well, appears very healthy, and the stem was found be well fixed. This having been accomplished, exposure was accomplished, the vastus lateralis was brought anteriorly and the perforating vessels were controlled. This having been accomplished, attempts to dislocate the hip at this point were unsuccessful because of the massive heterotopic ossification. The remaining iliopsoas tendon was identified and the iliopsoas tendon was completely released. Capsulotomy/capsulectomy and extensive synovectomy of the hip were accomplished using the electrocautery. At this point in time, using a combination of the curved 1/2-inch osteotome and with rotation of the hip, heterotopic ossification was debrided carefully from the lesser trochanter and from the neck of the prosthesis. This was carried out anteriorly and posteriorly, again, with rotation of the hip internally and externally. A massive amount of heterotopic ossification was debrided. At this point in time, it should be noted that two aliquots of synovial fluid were obtained and they were sent for stat Gram stain with number of white cells per high-power field. Both Gram stains come back with less than 10 white cells per high-power field, one Gram stain is less than 5 white cells per high-power field with no evidence of bacteria. There was no evidence of deep sepsis. There was no pus deep in the hip joint. There was some superficial excoriation and drainage which was excised with the skin and subcutaneous tissue and muscle. Thorough irrigation was accomplished at this point in time with the Pulsavac and with the Irrisept. This having been accomplished, further debridement from the acetabulum of the heterotopic bone and from the greater trochanter was accomplished and from the medial aspect of the femoral shaft extending down to the lesser trochanter. Again, the iliopsoas tendon was removed and extensive synovectomy was accomplished with a Megan clamp grasping the synovium and a careful partial synovectomy was carefully accomplished. Hemostasis was controlled with the Aquamantys and also with the FloSeal hemostatic agent. This having been accomplished, the hip was dislocated by external rotation and extension of the femur using a bone hook to disengage it from the acetabular shell. The acetabular shell was found to be intact but immobile. Polyethylene bearing was found to be intact. The femoral stem was found to be intact. At this point in time, the femur was dislocated and with external rotation and extension of femur, the head and neck were removed. The polyethylene outer bearing was removed from the acetabulum and the acetabular shell was evaluated carefully and found to be intact. There was no evidence of purulent loosening. There was no evidence of purulence at the interface, and the femoral stem was well fixed as well as the acetabulum. At this point in time, thorough irrigation having been accomplished, trialing was accomplished again with a -3.5 head and the appropriate 54 mm outer bearing. The hip was reduced, found to be stable in all planes. At this point in time, the revision was carried out. The ceramic head was impacted. The acetabular outer bearing was impacted. The hip was reduced and found to be stable in all planes. Under the surgeon's direction, the fluoroscope was positioned, video images were generated, therapeutic decisions were made therefrom. This having been accomplished, the wound was thoroughly irrigated and the hip had been dislocated and is reduced. The hip is stable in all planes. Hemostasis controlled with the Aquamantys. Closure of the greater trochanter remnants to the capsule was accomplished with interrupted Arthrex FiberWire followed by closure of the deep layer with FiberWire, followed by the closure of the fascia michael with #2 Quill followed by 0 Quill and sutures and emma for skin. At this point in time, the wound was measured and the Prevena wound VAC was applied. Application of wound VAC, its measurement was accomplished, the appropriate adhesive was placed. The central aperture was placed in the Prevena wound VAC and the suction device of the wound VAC was placed through the wound VAC adhesive base. This having been accomplished, the Prevena was applied. Compression dressing was applied. Again, verification of the position was verified on AP image intensification views and found to be acceptable. Again, in summary: OPERATIVE PROCEDURES 1. Revision total hip replacement, right. 2. Excision of heterotopic ossification, right hip joint. 3. Partial synovectomy. 4. Release of iliopsoas tendon. 5. Excision of skin, subcutaneous tissue, and muscle. 6. Application of Prevena wound VAC. SURGEON: Gordon Umana MD JAVA TECH LEAD: Pat Lam, certified registered nursing first cook. SECOND ANILINE PRESS WORKER: Kimberly Nguyen PA-C It should be noted that the assistantship of Pat Lam and Kimberly Nguyen was critical to the completion of this procedure. Gordon Umana MD
--- NOTE | 2018-04-19 10:32 | CP.PCM.PN ---
Subjective - Date & Time of Evaluation Date of Evaluation: 04/19/18 Time of Evaluation: 07:30 - Subjective Subjective: NO CHEST PAIN OR SOB PAIN AT RIGHT HIP SURGICAL SITE Objective - Vital Signs/Intake and Output Vital Signs (last 24 hours): Temp Pulse Resp BP Pulse Ox 98.3 F 61 18 99/50 L 96 04/19/18 08:21 04/19/18 08:21 04/19/18 08:21 04/19/18 08:21 04/19/18 08:21 - Medications Medications: Current Medications Acetaminophen (Tylenol 325mg Tab) 650 mg PO Q4 PRN PRN Reason: Pain, moderate (4-7) Last Admin: 04/16/18 21:23 Dose: 650 mg Carbidopa/Levodopa (Sinemet) 2 tab PO Q12 [facility] Last Admin: 04/19/18 08:44 Dose: 2 tab Docusate Sodium (Colace) 200 mg PO DAILY PRN PRN Reason: Constipation Last Admin: 04/17/18 08:39 Dose: 200 mg Enoxaparin Sodium (Lovenox) 40 mg SC Q24H [facility] PRN Reason: Protocol Ergocalciferol (Drisdol 50,000 Intl Units Cap) 1 cap PO QWK [facility] Last Admin: 04/17/18 08:39 Dose: 1 cap Hydromorphone HCl (Dilaudid) 1 mg IVP Q4 PRN PRN Reason: Pain, moderate (4-7) Vancomycin HCl 1 gm/ Sodium (Chloride) 250 mls @ 166.667 mls/hr IVPB Q12H [facility] PRN Reason: Protocol Last Admin: 04/19/18 01:18 Dose: 166.667 mls/hr Piperacillin Sod/Tazobactam (Sod 2.25 gm/ Sodium Chloride) 100 mls @ 100 mls/ hr IVPB Q8H [facility] PRN Reason: Protocol Last Admin: 04/19/18 06:00 Dose: 100 mls/hr Sodium Chloride (Sodium Chloride 0.9%) 1,000 mls @ 125 mls/hr IV .Q8H [facility] Stop: 04/20/18 06:00 Last Admin: 04/19/18 08:44 Dose: 125 mls/hr Lactobacillus Acidophilus (Bacid Acidophilus) 1 cap PO DAILY [facility] Last Admin: 04/19/18 08:49 Dose: 1 cap Multivitamins/Minerals (Therapeutic-M Tab) 1 tab PO DAILY [facility] Last Admin: 04/19/18 08:45 Dose: 1 tab Oxycodone/Acetaminophen (Percocet 5/325 Mg Tab) 1 tab PO Q6 PRN PRN Reason: Pain, moderate (4-7) Stop: 04/20/18 11:08 Last Admin: 04/19/18 08:49 Dose: 1 tab Tamsulosin HCl (Flomax) 0.4 mg PO DAILY [facility] Last Admin: 04/19/18 08:43 Dose: 0.4 mg - Labs Labs: 04/19/18 04:20 04/19/18 04:20 PT 12.0 Seconds (9.8-13.1) 04/18/18 17:45 INR 1.1 (0.9-1.2) 04/18/18 17:45 APTT 27.8 Seconds (25.6-37.1) 04/18/18 17:45 - Respiratory Exam Respiratory Exam: Clear to Ausculation Bilateral - Cardiovascular Exam Cardiovascular Exam: REGULAR RHYTHM, +S1, +S2 - Additional Findings Additional findings: FINISH MENDER NSR H/H 06/03 K+ 4.6 Assessment and Plan - Assessment and Plan (Free Text) Assessment: S/P RIGHT HIP REVISION PARKINSONISM Plan: CONTINUE LOVENOX AND IV ANTIBIOTICS
[2018-04-19] MEDS ORDERED: Sodium Chloride 0.9% 1,000 ML IV SCH (11:00)
--- NOTE | 2018-04-19 11:11 | CP.PCM.PN ---
Subjective - Date & Time of Evaluation Date of Evaluation: 04/19/18 Time of Evaluation: 10:50 - Subjective Subjective: This 72 year old male one day post-op status post general anesthesia for Right Hip revision,now complaining of numbness of all right hand fingertips and weakness of upper right upper extremity, that is when elevating the arm.Denies pain.This is possibly cause by patient position and blood pressure frequent cycling,causing pressure on the nerves. continue neuro checks., neurology evaluation if numbness and weakness worsen, gabapantin if not contraindicated. Parker Taylor MD Objective - Vital Signs/Intake and Output Vital Signs (last 24 hours): Temp Pulse Resp BP Pulse Ox 98.3 F 61 18 99/50 L 96 04/19/18 08:21 04/19/18 08:21 04/19/18 08:21 04/19/18 08:21 04/19/18 08:21 - Medications Medications: Current Medications Acetaminophen (Tylenol 325mg Tab) 650 mg PO Q4 PRN PRN Reason: Pain, moderate (4-7) Last Admin: 04/16/18 21:23 Dose: 650 mg Carbidopa/Levodopa (Sinemet) 2 tab PO Q12 [facility] Last Admin: 04/19/18 08:44 Dose: 2 tab Docusate Sodium (Colace) 200 mg PO DAILY PRN PRN Reason: Constipation Last Admin: 04/17/18 08:39 Dose: 200 mg Enoxaparin Sodium (Lovenox) 40 mg SC Q24H [facility] PRN Reason: Protocol Ergocalciferol (Drisdol 50,000 Intl Units Cap) 1 cap PO QWK [facility] Last Admin: 04/17/18 08:39 Dose: 1 cap Hydromorphone HCl (Dilaudid) 1 mg IVP Q4 PRN PRN Reason: Pain, moderate (4-7) Vancomycin HCl 1 gm/ Sodium (Chloride) 250 mls @ 166.667 mls/hr IVPB Q12H [facility] PRN Reason: Protocol Last Admin: 04/19/18 01:18 Dose: 166.667 mls/hr Piperacillin Sod/Tazobactam (Sod 2.25 gm/ Sodium Chloride) 100 mls @ 100 mls/ hr IVPB Q8H [facility] PRN Reason: Protocol Last Admin: 04/19/18 06:00 Dose: 100 mls/hr Sodium Chloride (Sodium Chloride 0.9%) 1,000 mls @ 125 mls/hr IV .Q8H [facility] Stop: 04/20/18 06:00 Last Admin: 04/19/18 08:44 Dose: 125 mls/hr Sodium Chloride (Sodium Chloride 0.9%) 1,000 mls @ 500 mls/hr IV .Q2H [facility] Stop: 04/20/18 10:47 Lactobacillus Acidophilus (Bacid Acidophilus) 1 cap PO DAILY [facility] Last Admin: 04/19/18 08:49 Dose: 1 cap Multivitamins/Minerals (Therapeutic-M Tab) 1 tab PO DAILY [facility] Last Admin: 04/19/18 08:45 Dose: 1 tab Oxycodone/Acetaminophen (Percocet 5/325 Mg Tab) 1 tab PO Q6 PRN PRN Reason: Pain, moderate (4-7) Stop: 04/20/18 11:08 Last Admin: 04/19/18 08:49 Dose: 1 tab Tamsulosin HCl (Flomax) 0.4 mg PO DAILY [facility] Last Admin: 04/19/18 08:43 Dose: 0.4 mg - Labs Labs: 04/19/18 04:20 04/19/18 04:20 PT 12.0 Seconds (9.8-13.1) 04/18/18 17:45 INR 1.1 (0.9-1.2) 04/18/18 17:45 APTT 27.8 Seconds (25.6-37.1) 04/18/18 17:45
--- NOTE | 2018-04-19 12:18 | CP.PCM.PN ---
Subjective - Date & Time of Evaluation Date of Evaluation: 04/19/18 Time of Evaluation: 08:00 - Subjective Subjective: afeb resting comfortably Objective - Vital Signs/Intake and Output Vital Signs (last 24 hours): Temp Pulse Resp BP Pulse Ox 99.4 F 68 18 97/59 L 98 04/19/18 12:01 04/19/18 12:01 04/19/18 12:01 04/19/18 12:11 04/19/18 12:00 Intake and Output: 04/19/18 04/19/18 06:59 18:59 Intake Total 0 Balance 0 - Medications Medications: Current Medications Acetaminophen (Tylenol 325mg Tab) 650 mg PO Q4 PRN PRN Reason: Pain, moderate (4-7) Last Admin: 04/16/18 21:23 Dose: 650 mg Carbidopa/Levodopa (Sinemet) 2 tab PO Q12 [facility] Last Admin: 04/19/18 08:44 Dose: 2 tab Docusate Sodium (Colace) 200 mg PO DAILY PRN PRN Reason: Constipation Last Admin: 04/17/18 08:39 Dose: 200 mg Enoxaparin Sodium (Lovenox) 40 mg SC Q24H [facility] PRN Reason: Protocol Ergocalciferol (Drisdol 50,000 Intl Units Cap) 1 cap PO QWK [facility] Last Admin: 04/17/18 08:39 Dose: 1 cap Hydromorphone HCl (Dilaudid) 1 mg IVP Q4 PRN PRN Reason: Pain, moderate (4-7) Vancomycin HCl 1 gm/ Sodium (Chloride) 250 mls @ 166.667 mls/hr IVPB Q12H [facility] PRN Reason: Protocol Last Admin: 04/19/18 01:18 Dose: 166.667 mls/hr Piperacillin Sod/Tazobactam (Sod 2.25 gm/ Sodium Chloride) 100 mls @ 100 mls/ hr IVPB Q8H [facility] PRN Reason: Protocol Last Admin: 04/19/18 06:00 Dose: 100 mls/hr Sodium Chloride (Sodium Chloride 0.9%) 1,000 mls @ 125 mls/hr IV .Q8H [facility] Stop: 04/20/18 06:00 Last Admin: 04/19/18 08:44 Dose: 125 mls/hr Sodium Chloride (Sodium Chloride 0.9%) 1,000 mls @ 500 mls/hr IV .Q2H [facility] Stop: 04/20/18 10:47 Lactobacillus Acidophilus (Bacid Acidophilus) 1 cap PO DAILY [facility] Last Admin: 04/19/18 08:49 Dose: 1 cap Multivitamins/Minerals (Therapeutic-M Tab) 1 tab PO DAILY [facility] Last Admin: 04/19/18 08:45 Dose: 1 tab Oxycodone/Acetaminophen (Percocet 5/325 Mg Tab) 1 tab PO Q6 PRN PRN Reason: Pain, moderate (4-7) Stop: 04/20/18 11:08 Last Admin: 04/19/18 08:49 Dose: 1 tab Tamsulosin HCl (Flomax) 0.4 mg PO DAILY [facility] Last Admin: 04/19/18 08:43 Dose: 0.4 mg - Labs Labs: 04/19/18 04:20 04/19/18 04:20 PT 12.0 Seconds (9.8-13.1) 04/18/18 17:45 INR 1.1 (0.9-1.2) 04/18/18 17:45 APTT 27.8 Seconds (25.6-37.1) 04/18/18 17:45 - Constitutional Appears: Non-toxic, Chronically Ill - Head Exam Head Exam: NORMOCEPHALIC - Eye Exam Eye Exam: PERRL - ENT Exam ENT Exam: Mucous Membranes Dry - Neck Exam Neck Exam: absent: Lymphadenopathy - Respiratory Exam Respiratory Exam: Decreased Breath Sounds - Cardiovascular Exam Cardiovascular Exam: REGULAR RHYTHM - GI/Abdominal Exam GI & Abdominal Exam: Distended - Rectal Exam Rectal Exam: Deferred Assessment and Plan (1) Wound drainage Status: Acute - Assessment and Plan (Free Text) Assessment: cont iv rx as ordered
--- NOTE | 2018-04-19 14:21 | CP.PCM.PN ---
Subjective - Date & Time of Evaluation Date of Evaluation: 04/19/18 Time of Evaluation: 14:19 - Subjective Subjective: Patient says pain in hip is better. Denies CP/SOB/dizziness. Admits to tingling in left finger tips and upper arm post op. Denies numbness/weakness. Objective - Vital Signs/Intake and Output Vital Signs (last 24 hours): Temp Pulse Resp BP Pulse Ox 98 F 65 18 97/60 L 98 04/19/18 13:18 04/19/18 13:18 04/19/18 13:18 04/19/18 13:18 04/19/18 12:00 Intake and Output: 04/19/18 04/19/18 06:59 18:59 Intake Total 0 Balance 0 - Medications Medications: Current Medications Acetaminophen (Tylenol 325mg Tab) 650 mg PO Q4 PRN PRN Reason: Pain, moderate (4-7) Last Admin: 04/16/18 21:23 Dose: 650 mg Carbidopa/Levodopa (Sinemet) 2 tab PO Q12 [facility] Last Admin: 04/19/18 08:44 Dose: 2 tab Docusate Sodium (Colace) 200 mg PO DAILY PRN PRN Reason: Constipation Last Admin: 04/17/18 08:39 Dose: 200 mg Enoxaparin Sodium (Lovenox) 40 mg SC Q24H [facility] PRN Reason: Protocol Ergocalciferol (Drisdol 50,000 Intl Units Cap) 1 cap PO QWK [facility] Last Admin: 04/17/18 08:39 Dose: 1 cap Hydromorphone HCl (Dilaudid) 1 mg IVP Q4 PRN PRN Reason: Pain, moderate (4-7) Vancomycin HCl 1 gm/ Sodium (Chloride) 250 mls @ 166.667 mls/hr IVPB Q12H [facility] PRN Reason: Protocol Last Admin: 04/19/18 12:23 Dose: 166.667 mls/hr Piperacillin Sod/Tazobactam (Sod 2.25 gm/ Sodium Chloride) 100 mls @ 100 mls/ hr IVPB Q8H [facility] PRN Reason: Protocol Last Admin: 04/19/18 12:27 Dose: 100 mls/hr Sodium Chloride (Sodium Chloride 0.9%) 1,000 mls @ 125 mls/hr IV .Q8H [facility] Stop: 04/20/18 06:00 Last Admin: 04/19/18 08:44 Dose: 125 mls/hr Sodium Chloride (Sodium Chloride 0.9%) 1,000 mls @ 500 mls/hr IV .Q2H [facility] Stop: 04/20/18 10:47 Lactobacillus Acidophilus (Bacid Acidophilus) 1 cap PO DAILY [facility] Last Admin: 04/19/18 08:49 Dose: 1 cap Multivitamins/Minerals (Therapeutic-M Tab) 1 tab PO DAILY [facility] Last Admin: 04/19/18 08:45 Dose: 1 tab Oxycodone/Acetaminophen (Percocet 5/325 Mg Tab) 1 tab PO Q6 PRN PRN Reason: Pain, moderate (4-7) Stop: 04/20/18 11:08 Last Admin: 04/19/18 08:49 Dose: 1 tab Tamsulosin HCl (Flomax) 0.4 mg PO DAILY [facility] Last Admin: 04/19/18 08:43 Dose: 0.4 mg - Labs Labs: 04/19/18 04:20 04/19/18 04:20 PT 12.0 Seconds (9.8-13.1) 04/18/18 17:45 INR 1.1 (0.9-1.2) 04/18/18 17:45 APTT 27.8 Seconds (25.6-37.1) 04/18/18 17:45 - Extremities Exam Additional comments: right hip: no drainage. Prevena intact+ROM ankle/toes, sensation intact +DP/PT pulses calves soft NT neg homans RUE: admits to decreased sensation to all fingers palmar aspect, no tingling dorsally or to forearm. Admits to tingling to upper arm full 5/5 a&p technician strength, wrist flex/ext, elbow flex/ext, no swelling/deformity/ discoloration Assessment and Plan (1) Wound drainage Assessment & Plan: POD#1 s/p revision right THR f/u cultures prevena dressing PT/OT VTE proph LUE neuropraxia from positioning likely, will monitor, likely transient d/w DR. Umana, agrees with above Status: Acute (2) Acute blood loss anemia Assessment & Plan: s/p 3uPRBC intra op 70/50s now, for transfusion Status: Acute
[2018-04-19] MEDS: Enoxaparin 40 mg Syringe SC SCH (16:13)
--- NOTE | 2018-04-19 19:20 | CP.PCM.PN ---
Subjective - Date & Time of Evaluation Date of Evaluation: 04/19/18 Time of Evaluation: 18:10 Objective - Vital Signs/Intake and Output Vital Signs (last 24 hours): Temp Pulse Resp BP Pulse Ox 98.6 F 74 18 93/55 L 96 04/19/18 18:14 04/19/18 18:14 04/19/18 18:14 04/19/18 18:14 04/19/18 16:38 Intake and Output: 04/19/18 04/20/18 18:59 06:59 Intake Total 344 Balance 344 - Medications Medications: Current Medications Acetaminophen (Tylenol 325mg Tab) 650 mg PO Q4 PRN PRN Reason: Pain, moderate (4-7) Last Admin: 04/16/18 21:23 Dose: 650 mg Carbidopa/Levodopa (Sinemet) 2 tab PO Q12 [facility] Last Admin: 04/19/18 08:44 Dose: 2 tab Docusate Sodium (Colace) 200 mg PO DAILY PRN PRN Reason: Constipation Last Admin: 04/17/18 08:39 Dose: 200 mg Enoxaparin Sodium (Lovenox) 40 mg SC Q24H [facility] PRN Reason: Protocol Last Admin: 04/19/18 16:13 Dose: 40 mg Ergocalciferol (Drisdol 50,000 Intl Units Cap) 1 cap PO QWK [facility] Last Admin: 04/17/18 08:39 Dose: 1 cap Hydromorphone HCl (Dilaudid) 1 mg IVP Q4 PRN PRN Reason: Pain, moderate (4-7) Vancomycin HCl 1 gm/ Sodium (Chloride) 250 mls @ 166.667 mls/hr IVPB Q12H [facility] PRN Reason: Protocol Last Admin: 04/19/18 12:23 Dose: 166.667 mls/hr Piperacillin Sod/Tazobactam (Sod 2.25 gm/ Sodium Chloride) 100 mls @ 100 mls/ hr IVPB Q8H [facility] PRN Reason: Protocol Last Admin: 04/19/18 12:27 Dose: 100 mls/hr Sodium Chloride (Sodium Chloride 0.9%) 1,000 mls @ 125 mls/hr IV .Q8H [facility] Stop: 04/20/18 06:00 Last Admin: 04/19/18 16:16 Dose: 125 mls/hr Sodium Chloride (Sodium Chloride 0.9%) 1,000 mls @ 500 mls/hr IV .Q2H [facility] Stop: 04/20/18 10:47 Last Admin: 04/19/18 11:00 Dose: 500 mls/hr Lactobacillus Acidophilus (Bacid Acidophilus) 1 cap PO DAILY [facility] Last Admin: 04/19/18 08:49 Dose: 1 cap Multivitamins/Minerals (Therapeutic-M Tab) 1 tab PO DAILY [facility] Last Admin: 04/19/18 08:45 Dose: 1 tab Oxycodone/Acetaminophen (Percocet 5/325 Mg Tab) 1 tab PO Q6 PRN PRN Reason: Pain, moderate (4-7) Stop: 04/20/18 11:08 Last Admin: 04/19/18 16:18 Dose: 1 tab Tamsulosin HCl (Flomax) 0.4 mg PO DAILY [facility] Last Admin: 04/19/18 08:43 Dose: 0.4 mg - Labs Labs: 04/19/18 04:20 04/19/18 04:20 PT 12.0 Seconds (9.8-13.1) 04/18/18 17:45 INR 1.1 (0.9-1.2) 04/18/18 17:45 APTT 27.8 Seconds (25.6-37.1) 04/18/18 17:45 Assessment and Plan (1) Wound drainage Status: Acute (2) Parkinsonism Status: Chronic (3) Vitamin D deficiency Status: Chronic
[2018-04-20 06:15] LABS: HEMOGLOBIN 7.4 g/dL (12.0-18.0); MEAN CELL VOLUME 89.2 fl (80.0-94.0); MEAN CORPUSCULAR HEMOGLOBIN 30.6 pg (27.0-31.0); MEAN CORPUSCULAR HGB CONC 34.3 g/dL (33.0-37.0); RBC 2.4 Mil/uL (4.40-5.90); WHITE BLOOD COUNT 5.8 K/uL (4.8-10.8)
[2018-04-20 06:19] LABS: BLOOD UREA NITROGEN 18 mg/dl (9-20); CALCIUM 7.9 mg/dL (8.4-10.2); GFR AFRICAN-AMERICAN > 60; GFR NON-AFRICAN AMERICAN > 60
[2018-04-20] MEDS: Oxycodone/Acetaminophen 5/325 mg Tab PO PRN (06:34)
--- NOTE | 2018-04-20 07:57 | CP.PCM.PN ---
Subjective - Date & Time of Evaluation Date of Evaluation: 04/20/18 Time of Evaluation: 07:55 - Subjective Subjective: Patient states he has pain in his right hip when he rolls onto right side. Advised patient this is expected. Denies CP/SOB/dizziness. Says the tingling in his left arm has stopped Objective - Vital Signs/Intake and Output Vital Signs (last 24 hours): Temp Pulse Resp BP Pulse Ox 98.4 F 66 18 95/53 L 97 04/20/18 05:00 04/20/18 05:00 04/20/18 05:00 04/20/18 05:00 04/20/18 05:00 Intake and Output: 04/20/18 04/20/18 06:59 18:59 Intake Total 319 1926 Output Total 300 Balance 319 1626 - Medications Medications: Current Medications Acetaminophen (Tylenol 325mg Tab) 650 mg PO Q4 PRN PRN Reason: Pain, moderate (4-7) Last Admin: 04/16/18 21:23 Dose: 650 mg Carbidopa/Levodopa (Sinemet) 2 tab PO Q12 [facility] Last Admin: 04/19/18 22:00 Dose: 2 tab Docusate Sodium (Colace) 200 mg PO DAILY PRN PRN Reason: Constipation Last Admin: 04/17/18 08:39 Dose: 200 mg Enoxaparin Sodium (Lovenox) 40 mg SC Q24H [facility] PRN Reason: Protocol Last Admin: 04/19/18 16:13 Dose: 40 mg Ergocalciferol (Drisdol 50,000 Intl Units Cap) 1 cap PO QWK [facility] Last Admin: 04/17/18 08:39 Dose: 1 cap Hydromorphone HCl (Dilaudid) 1 mg IVP Q4 PRN PRN Reason: Pain, moderate (4-7) Vancomycin HCl 1 gm/ Sodium (Chloride) 250 mls @ 166.667 mls/hr IVPB Q12H [facility] PRN Reason: Protocol Last Admin: 04/19/18 23:15 Dose: 166.667 mls/hr Piperacillin Sod/Tazobactam (Sod 2.25 gm/ Sodium Chloride) 100 mls @ 100 mls/ hr IVPB Q8H [facility] PRN Reason: Protocol Last Admin: 04/20/18 04:24 Dose: 100 mls/hr Sodium Chloride (Sodium Chloride 0.9%) 1,000 mls @ 500 mls/hr IV .Q2H [facility] Stop: 04/20/18 10:47 Last Admin: 04/19/18 11:00 Dose: 500 mls/hr Lactobacillus Acidophilus (Bacid Acidophilus) 1 cap PO DAILY [facility] Last Admin: 04/19/18 08:49 Dose: 1 cap Multivitamins/Minerals (Therapeutic-M Tab) 1 tab PO DAILY [facility] Last Admin: 04/19/18 08:45 Dose: 1 tab Oxycodone/Acetaminophen (Percocet 5/325 Mg Tab) 1 tab PO Q6 PRN PRN Reason: Pain, moderate (4-7) Stop: 04/20/18 11:08 Last Admin: 04/20/18 06:34 Dose: 1 tab Tamsulosin HCl (Flomax) 0.4 mg PO DAILY [facility] Last Admin: 04/19/18 08:43 Dose: 0.4 mg - Labs Labs: 04/20/18 04:20 04/20/18 04:20 PT 12.0 Seconds (9.8-13.1) 04/18/18 17:45 INR 1.1 (0.9-1.2) 04/18/18 17:45 APTT 27.8 Seconds (25.6-37.1) 04/18/18 17:45 - Extremities Exam Additional comments: Right thigh: no increased swelling, soft. +ROM ankle/toes, sensation intact +DP/ PT pulses calves soft NT neg homans +prevena Assessment and Plan (1) Wound drainage Assessment & Plan: POD#2 s/p right THR revision/I&D cont abx per ID, awaiting cultures PT/OT prevena dressing VTE proph transfusion today for hgb 7.4 d/w Dr. Umana, agrees with above Status: Acute (2) Acute blood loss anemia Status: Acute
[2018-04-20] MEDS: Multivitamin With Minerals Tab PO SCH (08:53)
--- NOTE | 2018-04-20 09:54 | CP.PCM.PN ---
Subjective - Date & Time of Evaluation Date of Evaluation: 04/20/18 Time of Evaluation: 09:40 - Subjective Subjective: NO CHEST PAIN OR SOB JUST HAS PAIN AT RIGHT HIP SURGICAL SITE Objective - Vital Signs/Intake and Output Vital Signs (last 24 hours): Temp Pulse Resp BP Pulse Ox 98 F 78 20 103/68 95 04/20/18 08:00 04/20/18 08:00 04/20/18 08:00 04/20/18 08:00 04/20/18 08:00 Intake and Output: 04/20/18 04/20/18 06:59 18:59 Intake Total 319 1926 Output Total 300 Balance 319 1626 - Medications Medications: Current Medications Acetaminophen (Tylenol 325mg Tab) 650 mg PO Q4 PRN PRN Reason: Pain, moderate (4-7) Last Admin: 04/16/18 21:23 Dose: 650 mg Carbidopa/Levodopa (Sinemet) 2 tab PO Q12 [facility] Last Admin: 04/20/18 08:54 Dose: 2 tab Docusate Sodium (Colace) 200 mg PO DAILY PRN PRN Reason: Constipation Last Admin: 04/20/18 08:53 Dose: 200 mg Enoxaparin Sodium (Lovenox) 40 mg SC Q24H [facility] PRN Reason: Protocol Last Admin: 04/19/18 16:13 Dose: 40 mg Ergocalciferol (Drisdol 50,000 Intl Units Cap) 1 cap PO QWK [facility] Last Admin: 04/17/18 08:39 Dose: 1 cap Hydromorphone HCl (Dilaudid) 1 mg IVP Q4 PRN PRN Reason: Pain, moderate (4-7) Vancomycin HCl 1 gm/ Sodium (Chloride) 250 mls @ 166.667 mls/hr IVPB Q12H [facility] PRN Reason: Protocol Last Admin: 04/19/18 23:15 Dose: 166.667 mls/hr Piperacillin Sod/Tazobactam (Sod 2.25 gm/ Sodium Chloride) 100 mls @ 100 mls/ hr IVPB Q8H [facility] PRN Reason: Protocol Last Admin: 04/20/18 04:24 Dose: 100 mls/hr Sodium Chloride (Sodium Chloride 0.9%) 1,000 mls @ 500 mls/hr IV .Q2H [facility] Stop: 04/20/18 10:47 Last Admin: 04/19/18 11:00 Dose: 500 mls/hr Lactobacillus Acidophilus (Bacid Acidophilus) 1 cap PO DAILY [facility] Last Admin: 04/19/18 08:49 Dose: 1 cap Multivitamins/Minerals (Therapeutic-M Tab) 1 tab PO DAILY [facility] Last Admin: 04/20/18 08:53 Dose: 1 tab Oxycodone/Acetaminophen (Percocet 5/325 Mg Tab) 1 tab PO Q6 PRN PRN Reason: Pain, moderate (4-7) Stop: 04/20/18 11:08 Last Admin: 04/20/18 06:34 Dose: 1 tab Tamsulosin HCl (Flomax) 0.4 mg PO DAILY [facility] Last Admin: 04/20/18 08:54 Dose: 0.4 mg - Labs Labs: 04/20/18 04:20 04/20/18 04:20 PT 12.0 Seconds (9.8-13.1) 04/18/18 17:45 INR 1.1 (0.9-1.2) 04/18/18 17:45 APTT 27.8 Seconds (25.6-37.1) 04/18/18 17:45 - Respiratory Exam Respiratory Exam: Clear to Ausculation Bilateral - Cardiovascular Exam Cardiovascular Exam: REGULAR RHYTHM, +S1, +S2 - Additional Findings 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
[2018-04-20] MEDS ORDERED: Iohexol 240 (50 ml) PO ONE (11:02)
[2018-04-20] MEDS ORDERED: Lactulose 10 gm/15 ml Syrup PO PRN (11:13)
[2018-04-20 11:41] LABS: IRON 20 ug/dL (49-181)
[2018-04-20 11:50] LABS: % IRON SATURATION 10 % (20-55); TOTAL IRON BINDING CAPACITY 199 ug/dL (250-450)
--- NOTE | 2018-04-20 12:17 | CP.PCM.PN ---
Subjective - Date & Time of Evaluation Date of Evaluation: 04/20/18 Time of Evaluation: 08:00 - Subjective Subjective: afebrile alert denies fever or chest pain Objective - Vital Signs/Intake and Output Vital Signs (last 24 hours): Temp Pulse Resp BP Pulse Ox 98 F 78 20 103/68 95 04/20/18 08:00 04/20/18 08:00 04/20/18 08:00 04/20/18 08:00 04/20/18 08:00 Intake and Output: 04/20/18 04/20/18 06:59 18:59 Intake Total 319 1926 Output Total 300 Balance 319 1626 - Medications Medications: Current Medications Acetaminophen (Tylenol 325mg Tab) 650 mg PO Q4 PRN PRN Reason: Pain, moderate (4-7) Last Admin: 04/16/18 21:23 Dose: 650 mg Carbidopa/Levodopa (Sinemet) 2 tab PO Q12 [facility] Last Admin: 04/20/18 08:54 Dose: 2 tab Docusate Sodium (Colace) 200 mg PO DAILY PRN PRN Reason: Constipation Last Admin: 04/20/18 08:53 Dose: 200 mg Enoxaparin Sodium (Lovenox) 40 mg SC Q24H [facility] PRN Reason: Protocol Last Admin: 04/19/18 16:13 Dose: 40 mg Ergocalciferol (Drisdol 50,000 Intl Units Cap) 1 cap PO QWK [facility] Last Admin: 04/17/18 08:39 Dose: 1 cap Ferrous Sulfate (Feosol) 325 mg PO TID [facility] Hydromorphone HCl (Dilaudid) 1 mg IVP Q4 PRN PRN Reason: Pain, moderate (4-7) Piperacillin Sod/Tazobactam (Sod 2.25 gm/ Sodium Chloride) 100 mls @ 100 mls/ hr IVPB Q8H [facility] PRN Reason: Protocol Last Admin: 04/20/18 04:24 Dose: 100 mls/hr Vancomycin HCl 1 gm/ Sodium (Chloride) 250 mls @ 166.667 mls/hr IVPB DAILY [facility] PRN Reason: Protocol Lactobacillus Acidophilus (Bacid Acidophilus) 1 cap PO DAILY [facility] Last Admin: 04/19/18 08:49 Dose: 1 cap Lactulose (Enulose) 10 gm PO DAILY PRN PRN Reason: Constipation Multivitamins/Minerals (Therapeutic-M Tab) 1 tab PO DAILY [facility] Last Admin: 04/20/18 08:53 Dose: 1 tab Tamsulosin HCl (Flomax) 0.4 mg PO DAILY [facility] Last Admin: 04/20/18 08:54 Dose: 0.4 mg - Labs Labs: 04/20/18 04:20 04/20/18 04:20 PT 12.0 Seconds (9.8-13.1) 04/18/18 17:45 INR 1.1 (0.9-1.2) 04/18/18 17:45 APTT 27.8 Seconds (25.6-37.1) 04/18/18 17:45 - Constitutional Appears: Non-toxic, Chronically Ill - Head Exam Head Exam: NORMOCEPHALIC - Eye Exam Eye Exam: PERRL - ENT Exam ENT Exam: Mucous Membranes Dry - Neck Exam Neck Exam: absent: Lymphadenopathy - Respiratory Exam Respiratory Exam: Decreased Breath Sounds - Cardiovascular Exam Cardiovascular Exam: REGULAR RHYTHM - GI/Abdominal Exam GI & Abdominal Exam: Distended - Rectal Exam Rectal Exam: Deferred - Exam Exam: NORMAL INSPECTION - Extremities Exam Extremities Exam: absent: Pedal Edema - Back Exam Back Exam: absent: CVA tenderness (L), CVA tenderness (R) - Neurological Exam Neurological Exam: Alert, Awake, Motor Sensory Deficit, Oriented x3 - Psychiatric Exam Psychiatric exam: Normal Mood Assessment and Plan (1) Wound drainage Status: Acute - Assessment and Plan (Free Text) Assessment: wound vac in place will need senior living iv rx all OR cultures neg thus far
[2018-04-20] MEDS: Lactobacillus Acidophilus 500 MU Cap PO SCH (12:38)
[2018-04-20] MEDS: Enoxaparin 40 mg Syringe SC SCH (14:25)
[2018-04-20 17:19] LABS: FOLATE 13.6 ng/mL
--- NOTE | 2018-04-20 22:24 | CP.PCM.PN ---
Subjective - Date & Time of Evaluation Date of Evaluation: 04/20/18 Time of Evaluation: 18:00 - Subjective Subjective: Pt seen and examined at bedside, Objective - Vital Signs/Intake and Output Vital Signs (last 24 hours): Temp Pulse Resp BP Pulse Ox 97.5 F L 75 16 111/65 99 04/20/18 20:16 04/20/18 20:16 04/20/18 20:16 04/20/18 20:16 04/20/18 20:16 Intake and Output: 04/20/18 04/21/18 18:59 06:59 Intake Total 2346 Output Total 300 Balance 2046 - Medications Medications: Current Medications Acetaminophen (Tylenol 325mg Tab) 650 mg PO Q4 PRN PRN Reason: Pain, moderate (4-7) Last Admin: 04/20/18 19:12 Dose: 650 mg Carbidopa/Levodopa (Sinemet) 2 tab PO Q12 [facility] Last Admin: 04/20/18 21:14 Dose: 2 tab Docusate Sodium (Colace) 200 mg PO DAILY PRN PRN Reason: Constipation Last Admin: 04/20/18 08:53 Dose: 200 mg Enoxaparin Sodium (Lovenox) 40 mg SC Q24H [facility] PRN Reason: Protocol Last Admin: 04/20/18 14:25 Dose: 40 mg Ergocalciferol (Drisdol 50,000 Intl Units Cap) 1 cap PO QWK [facility] Last Admin: 04/17/18 08:39 Dose: 1 cap Ferrous Sulfate (Feosol) 325 mg PO TID [facility] Last Admin: 04/20/18 17:22 Dose: 325 mg Hydromorphone HCl (Dilaudid) 1 mg IVP Q4 PRN PRN Reason: Pain, moderate (4-7) Piperacillin Sod/Tazobactam (Sod 2.25 gm/ Sodium Chloride) 100 mls @ 100 mls/ hr IVPB Q8H [facility] PRN Reason: Protocol Last Admin: 04/20/18 21:16 Dose: 100 mls/hr Vancomycin HCl 1 gm/ Sodium (Chloride) 250 mls @ 166.667 mls/hr IVPB DAILY [facility] PRN Reason: Protocol Lactobacillus Acidophilus (Bacid Acidophilus) 1 cap PO DAILY [facility] Last Admin: 04/20/18 12:38 Dose: 1 cap Lactulose (Enulose) 10 gm PO DAILY PRN PRN Reason: Constipation Multivitamins/Minerals (Therapeutic-M Tab) 1 tab PO DAILY [facility] Last Admin: 04/20/18 08:53 Dose: 1 tab Tamsulosin HCl (Flomax) 0.4 mg PO DAILY [facility] Last Admin: 04/20/18 08:54 Dose: 0.4 mg - Labs Labs: 04/20/18 04:20 04/20/18 04:20 PT 12.0 Seconds (9.8-13.1) 04/18/18 17:45 INR 1.1 (0.9-1.2) 04/18/18 17:45 APTT 27.8 Seconds (25.6-37.1) 04/18/18 17:45
--- NOTE | 2018-04-21 08:40 | CP.PCM.PN ---
Subjective - Date & Time of Evaluation Date of Evaluation: 04/20/18 Time of Evaluation: 22:15 - Subjective Subjective: Seen and examined at the bed side. No New complaint. H/H dropped after Surgery, and S/P Transfusion of PRBCs. Despite Transfusion, Hgb dropped to 7.4 mg/dl. Will transfuse 2 More units of PRBCs, and start Ferrous Sulfate. CT scan offered but patient refused. Objective - Vital Signs/Intake and Output Vital Signs (last 24 hours): Temp Pulse Resp BP Pulse Ox 97.8 F 65 20 114/63 100 04/21/18 08:17 04/21/18 08:17 04/21/18 08:17 04/21/18 08:17 04/21/18 08:17 Intake and Output: 04/21/18 04/21/18 06:59 18:59 Intake Total 1150 Output Total 0 Balance 1150 - Medications Medications: Current Medications Acetaminophen (Tylenol 325mg Tab) 650 mg PO Q4 PRN PRN Reason: Pain, moderate (4-7) Last Admin: 04/20/18 19:12 Dose: 650 mg Carbidopa/Levodopa (Sinemet) 2 tab PO Q12 [facility] Last Admin: 04/20/18 21:14 Dose: 2 tab Docusate Sodium (Colace) 200 mg PO DAILY PRN PRN Reason: Constipation Last Admin: 04/20/18 08:53 Dose: 200 mg Enoxaparin Sodium (Lovenox) 40 mg SC Q24H [facility] PRN Reason: Protocol Last Admin: 04/20/18 14:25 Dose: 40 mg Ergocalciferol (Drisdol 50,000 Intl Units Cap) 1 cap PO QWK [facility] Last Admin: 04/17/18 08:39 Dose: 1 cap Ferrous Sulfate (Feosol) 325 mg PO TID [facility] Last Admin: 04/20/18 17:22 Dose: 325 mg Hydromorphone HCl (Dilaudid) 1 mg IVP Q4 PRN PRN Reason: Pain, moderate (4-7) Piperacillin Sod/Tazobactam (Sod 2.25 gm/ Sodium Chloride) 100 mls @ 100 mls/ hr IVPB Q8H [facility] PRN Reason: Protocol Last Admin: 04/21/18 05:04 Dose: 100 mls/hr Vancomycin HCl 1 gm/ Sodium (Chloride) 250 mls @ 166.667 mls/hr IVPB DAILY [facility] PRN Reason: Protocol Lactobacillus Acidophilus (Bacid Acidophilus) 1 cap PO DAILY [facility] Last Admin: 04/20/18 12:38 Dose: 1 cap Lactulose (Enulose) 10 gm PO DAILY PRN PRN Reason: Constipation Multivitamins/Minerals (Therapeutic-M Tab) 1 tab PO DAILY [facility] Last Admin: 04/20/18 08:53 Dose: 1 tab Tamsulosin HCl (Flomax) 0.4 mg PO DAILY [facility] Last Admin: 04/20/18 08:54 Dose: 0.4 mg - Labs Labs: 04/20/18 04:20 04/20/18 04:20 PT 12.0 Seconds (9.8-13.1) 04/18/18 17:45 INR 1.1 (0.9-1.2) 04/18/18 17:45 APTT 27.8 Seconds (25.6-37.1) 04/18/18 17:45 - Constitutional Appears: Well, No Acute Distress - Head Exam Head Exam: ATRAUMATIC, NORMAL INSPECTION, NORMOCEPHALIC - Eye Exam Eye Exam: EOMI, Normal appearance, PERRL Pupil Exam: NORMAL ACCOMODATION, PERRL - ENT Exam ENT Exam: Mucous Membranes Moist, Normal Exam - Neck Exam Neck Exam: Full ROM, Normal Inspection. absent: Lymphadenopathy - Respiratory Exam Respiratory Exam: Clear to Ausculation Bilateral, NORMAL BREATHING PATTERN - Cardiovascular Exam Cardiovascular Exam: REGULAR RHYTHM, +S1, +S2. absent: Murmur - GI/Abdominal Exam GI & Abdominal Exam: Soft, Normal Bowel Sounds. absent: Tenderness - Extremities Exam Extremities Exam: Full ROM, Normal Capillary Refill, Normal Inspection. absent : Joint Swelling, Pedal Edema - Back Exam Back Exam: NORMAL INSPECTION - Neurological Exam Neurological Exam: Alert, Awake, CN II-XII Intact, Normal Gait, Oriented x3 - Psychiatric Exam Psychiatric exam: Normal Affect, Normal Mood - Skin Skin Exam: Dry, Intact, Normal Color, Warm Assessment and Plan (1) Wound drainage Assessment & Plan: Right Hip Revision Continue IVF Continue IV ABx, Pain Medication PRN ID and Orthopedist Onboard Status: Acute (2) Parkinsonism Status: Chronic (3) Vitamin D deficiency Assessment & Plan: Vitamin D Replenish Calcium Supplement Status: Chronic
[2018-04-21 08:45] LABS: HEMOGLOBIN 8.5 g/dL (12.0-18.0); MEAN CELL VOLUME 90.1 fl (80.0-94.0); MEAN CORPUSCULAR HEMOGLOBIN 31.1 pg (27.0-31.0); MEAN CORPUSCULAR HGB CONC 34.5 g/dL (33.0-37.0); RBC 2.74 Mil/uL (4.40-5.90); RED CELL DISTRIBUTION WIDTH 16.8 % (11.5-14.5); WHITE BLOOD COUNT 5.9 K/uL (4.8-10.8)
[2018-04-21] MEDS: Multivitamin With Minerals Tab PO SCH (08:54)
[2018-04-21 09:00] LABS: ALB/GLOB RATIO 0.9 (1.0-2.1); ALBUMIN 2.4 g/dL (3.5-5.0); ALT/SGPT 22 U/L (21-72); AST/SGOT 31 U/L (17-59); BLOOD UREA NITROGEN 13 mg/dl (9-20); CALCIUM 8.1 mg/dL (8.4-10.2); GFR AFRICAN-AMERICAN > 60; GFR NON-AFRICAN AMERICAN > 60
[2018-04-21] MEDS: Lactobacillus Acidophilus 500 MU Cap PO SCH (09:01)
--- NOTE | 2018-04-21 10:24 | CP.PCM.PN ---
Subjective - Date & Time of Evaluation Date of Evaluation: 04/21/18 Time of Evaluation: 10:22 - Subjective Subjective: Patient says pain is controlled. No new complaints. Objective - Vital Signs/Intake and Output Vital Signs (last 24 hours): Temp Pulse Resp BP Pulse Ox 97.8 F 65 20 114/63 100 04/21/18 08:17 04/21/18 08:17 04/21/18 08:17 04/21/18 08:17 04/21/18 08:17 Intake and Output: 04/21/18 04/21/18 06:59 18:59 Intake Total 1150 Output Total 0 Balance 1150 - Medications Medications: Current Medications Acetaminophen (Tylenol 325mg Tab) 650 mg PO Q4 PRN PRN Reason: Pain, moderate (4-7) Last Admin: 04/20/18 19:12 Dose: 650 mg Carbidopa/Levodopa (Sinemet) 2 tab PO Q12 [facility] Last Admin: 04/21/18 09:08 Dose: 2 tab Docusate Sodium (Colace) 200 mg PO DAILY PRN PRN Reason: Constipation Last Admin: 04/20/18 08:53 Dose: 200 mg Enoxaparin Sodium (Lovenox) 40 mg SC Q24H [facility] PRN Reason: Protocol Last Admin: 04/20/18 14:25 Dose: 40 mg Ergocalciferol (Drisdol 50,000 Intl Units Cap) 1 cap PO QWK [facility] Last Admin: 04/17/18 08:39 Dose: 1 cap Ferrous Sulfate (Feosol) 325 mg PO TID [facility] Last Admin: 04/21/18 08:53 Dose: 325 mg Hydromorphone HCl (Dilaudid) 1 mg IVP Q4 PRN PRN Reason: Pain, moderate (4-7) Piperacillin Sod/Tazobactam (Sod 2.25 gm/ Sodium Chloride) 100 mls @ 100 mls/ hr IVPB Q8H [facility] PRN Reason: Protocol Last Admin: 04/21/18 05:04 Dose: 100 mls/hr Vancomycin HCl 1 gm/ Sodium (Chloride) 250 mls @ 166.667 mls/hr IVPB DAILY [facility] PRN Reason: Protocol Last Admin: 04/21/18 09:07 Dose: 166.667 mls/hr Lactobacillus Acidophilus (Bacid Acidophilus) 1 cap PO DAILY [facility] Last Admin: 04/21/18 09:01 Dose: 1 cap Lactulose (Enulose) 10 gm PO DAILY PRN PRN Reason: Constipation Multivitamins/Minerals (Therapeutic-M Tab) 1 tab PO DAILY [facility] Last Admin: 04/21/18 08:54 Dose: 1 tab Tamsulosin HCl (Flomax) 0.4 mg PO DAILY [facility] Last Admin: 04/21/18 08:54 Dose: 0.4 mg - Labs Labs: 04/21/18 08:00 04/21/18 08:00 PT 12.0 Seconds (9.8-13.1) 04/18/18 17:45 INR 1.1 (0.9-1.2) 04/18/18 17:45 APTT 27.8 Seconds (25.6-37.1) 04/18/18 17:45 - Extremities Exam Additional comments: RLE: small amount of serosang drainage in tubing and canister today. RLE increased swelling to knee and lower leg. Calves soft NT neg homans, Walter bandage removed. Encouraged ankle pumps. +ROM ankle/toes, sensation intact, thigh still soft Assessment and Plan (1) Wound drainage Assessment & Plan: increased drainage in canister monitor h/h stat dopplers cont prevena d/w Dr. Umana, agrees with above cont PT/OT Status: Acute (2) Acute blood loss anemia Assessment & Plan: monitor Status: Acute
--- NOTE | 2018-04-21 10:45 | CP.PCM.PN ---
Subjective - Date & Time of Evaluation Date of Evaluation: 04/21/18 Time of Evaluation: 09:30 - Subjective Subjective: NO CHEST PAIN OR SOB Objective - Vital Signs/Intake and Output Vital Signs (last 24 hours): Temp Pulse Resp BP Pulse Ox 97.8 F 65 20 114/63 100 04/21/18 08:17 04/21/18 08:17 04/21/18 08:17 04/21/18 08:17 04/21/18 08:17 Intake and Output: 04/21/18 04/21/18 06:59 18:59 Intake Total 1150 Output Total 0 Balance 1150 - Medications Medications: Current Medications Acetaminophen (Tylenol 325mg Tab) 650 mg PO Q4 PRN PRN Reason: Pain, moderate (4-7) Last Admin: 04/20/18 19:12 Dose: 650 mg Carbidopa/Levodopa (Sinemet) 2 tab PO Q12 [facility] Last Admin: 04/21/18 09:08 Dose: 2 tab Docusate Sodium (Colace) 200 mg PO DAILY PRN PRN Reason: Constipation Last Admin: 04/20/18 08:53 Dose: 200 mg Enoxaparin Sodium (Lovenox) 40 mg SC Q24H [facility] PRN Reason: Protocol Last Admin: 04/20/18 14:25 Dose: 40 mg Ergocalciferol (Drisdol 50,000 Intl Units Cap) 1 cap PO QWK [facility] Last Admin: 04/17/18 08:39 Dose: 1 cap Ferrous Sulfate (Feosol) 325 mg PO TID [facility] Last Admin: 04/21/18 08:53 Dose: 325 mg Hydromorphone HCl (Dilaudid) 1 mg IVP Q4 PRN PRN Reason: Pain, moderate (4-7) Piperacillin Sod/Tazobactam (Sod 2.25 gm/ Sodium Chloride) 100 mls @ 100 mls/ hr IVPB Q8H [facility] PRN Reason: Protocol Last Admin: 04/21/18 05:04 Dose: 100 mls/hr Vancomycin HCl 1 gm/ Sodium (Chloride) 250 mls @ 166.667 mls/hr IVPB DAILY [facility] PRN Reason: Protocol Last Admin: 04/21/18 09:07 Dose: 166.667 mls/hr Lactobacillus Acidophilus (Bacid Acidophilus) 1 cap PO DAILY [facility] Last Admin: 04/21/18 09:01 Dose: 1 cap Lactulose (Enulose) 10 gm PO DAILY PRN PRN Reason: Constipation Multivitamins/Minerals (Therapeutic-M Tab) 1 tab PO DAILY [facility] Last Admin: 04/21/18 08:54 Dose: 1 tab Tamsulosin HCl (Flomax) 0.4 mg PO DAILY [facility] Last Admin: 04/21/18 08:54 Dose: 0.4 mg - Labs Labs: 04/21/18 08:00 04/21/18 08:00 PT 12.0 Seconds (9.8-13.1) 04/18/18 17:45 INR 1.1 (0.9-1.2) 04/18/18 17:45 APTT 27.8 Seconds (25.6-37.1) 04/18/18 17:45 - Respiratory Exam Respiratory Exam: Clear to Ausculation Bilateral - Cardiovascular Exam Cardiovascular Exam: REGULAR RHYTHM, +S1, +S2 - Additional Findings Additional findings: WBC 5.9 H/H 8.5/24.6 Assessment and Plan - Assessment and Plan (Free Text) Assessment: S/P INFECTION OF RIGHT HIP WITH REVISION Plan: CONTINUE IV ANTIBIOTICS FOR CT SCAN THE PATIENT COULD BE TRANSFERRED TO A REGULAR FLOOR FROM THE CARDIAC [facility]
--- NOTE | 2018-04-21 13:30 | US ---
Date of service: 04/21/2018 PROCEDURE: Bilateral lower extremity venous duplex Doppler. HISTORY: leg swelling, r/o DVT Relevant surgical history: Recent right hip replacement COMPARISON: None available. TECHNIQUE: Bilateral common femoral, superficial femoral, popliteal and posterior tibial veins were evaluated. Flow was assessed with color Doppler, compressibility, assessment of phasic flow and augmentation response. FINDINGS: COMMON FEMORAL VEIN: Right CFV: Partial compressibility of the right common femoral vein. Left CFV: Unremarkable. SUPERFICIAL FEMORAL VEIN: Right SFV: Unremarkable. Left SFV: Unremarkable. POPLITEAL VEIN: Right Popliteal: Unremarkable. Left Popliteal: Unremarkable. POSTERIOR TIBIAL VEIN: Right PTV: Unremarkable. Left PTV: Unremarkable. OTHER FINDINGS: Lower extremity edema documented. IMPRESSION: Focal area of nonocclusive thrombus in the distal right common femoral vein. Negative study left lower extremity for acute deep vein thrombosis
[2018-04-21] MEDS ORDERED: Iohexol 240 (50 ml) IVP ONE (14:15)
--- NOTE | 2018-04-21 17:42 | CT ---
Date of service: 04/21/2018 PROCEDURE: CT Abdomen and Pelvis with contrast HISTORY: Anemia. Hip incision drainage Relevant surgical history: 2018. Right hip revision COMPARISON: None. TECHNIQUE: Oral contrast only. Radiation dose: Total exam DLP = 1170.71 mGy-cm. This CT exam was performed using one or more of the following dose reduction techniques: Automated exposure control, adjustment of the mA and/or kV according to patient size, and/or use of iterative reconstruction technique. FINDINGS: LOWER THORAX: Mild subsegmental basilar atelectasis. LIVER: Unremarkable. No gross lesion or ductal dilatation. GALLBLADDER AND BILE DUCTS: Air within the gallbladder. Pelvis is intraluminal or within the gallbladder wall is difficult to determine on this examination. Tissue be correlated with clinical presentation. The findings are nonspecific and can be seen with biliary enteric intervention or surgical procedures. Emphysematous cholecystitis could also assume this appearance. PANCREAS: 3 cm calcified mass in the body of pancreas likely pancreatic pseudocyst. No evidence of acute pancreatitis. SPLEEN: Unremarkable. ADRENALS: Unremarkable. No mass. KIDNEYS AND URETERS: Unremarkable. No hydronephrosis. No solid mass. VASCULATURE: Unremarkable. No aortic aneurysm. BOWEL: Constipation, fecal impaction. Findings extend to and involve loops of colon in both scrotal sacs associated with bilateral inguinal hernias. APPENDIX: A normal appendix is not visualized. PERITONEUM: Unremarkable. No free fluid. No free air. LYMPH NODES: Unremarkable. No enlarged lymph nodes. BLADDER: Unremarkable. REPRODUCTIVE: Bilateral inguinal hernias left larger than right consisting loops of colon and small bowel. BONES: Postoperative findings related to right DONELL. Adjacent to the vastus lateralis muscles is a fluid collection measuring 4.6 x 7.2 cm. Edematous changes within the quadriceps and adductor muscles noted. Innumerable locules of air presumed to be postoperative in nature. Several of these appear to be confluent and extend to the skin surface. OTHER FINDINGS: Diffuse edema and anasarca. IMPRESSION: Postoperative findings right hip described in greater detail above. Diffuse edema noted within visualized muscle groups. In addition, there is lateral fluid collection noted. Innumerable pockets of air are also seen at the operative site extending to the skin surface. Severe fecal impaction and constipation. Air within the gallbladder and perhaps gallbladder wall. This should be correlated clinically and with any surgical or interventional procedures relative to the hepatobiliary system. Additional benign and/or incidental findings described above.
--- NOTE | 2018-04-21 22:31 | CP.PCM.PN ---
Subjective - Date & Time of Evaluation Date of Evaluation: 04/21/18 Time of Evaluation: 16:45 Objective - Vital Signs/Intake and Output Vital Signs (last 24 hours): Temp Pulse Resp BP Pulse Ox 97.9 F 69 18 112/62 99 04/21/18 20:03 04/21/18 21:00 04/21/18 20:03 04/21/18 20:03 04/21/18 20:03 Intake and Output: 04/21/18 04/22/18 18:59 06:59 Output Total 900 Balance -900 - Medications Medications: Current Medications Acetaminophen (Tylenol 325mg Tab) 650 mg PO Q4 PRN PRN Reason: Pain, moderate (4-7) Last Admin: 04/21/18 15:31 Dose: 650 mg Carbidopa/Levodopa (Sinemet) 2 tab PO Q12 [facility] Last Admin: 04/21/18 22:00 Dose: 2 tab Docusate Sodium (Colace) 200 mg PO DAILY PRN PRN Reason: Constipation Last Admin: 04/20/18 08:53 Dose: 200 mg Enoxaparin Sodium (Lovenox) 40 mg SC Q24H [facility] PRN Reason: Protocol Last Admin: 04/20/18 14:25 Dose: 40 mg Ergocalciferol (Drisdol 50,000 Intl Units Cap) 1 cap PO QWK [facility] Last Admin: 04/17/18 08:39 Dose: 1 cap Ferrous Sulfate (Feosol) 325 mg PO TID [facility] Last Admin: 04/21/18 19:03 Dose: Not Given Piperacillin Sod/Tazobactam (Sod 2.25 gm/ Sodium Chloride) 100 mls @ 100 mls/ hr IVPB Q8H [facility] PRN Reason: Protocol Last Admin: 04/21/18 22:10 Dose: 100 mls/hr Vancomycin HCl 1 gm/ Sodium (Chloride) 250 mls @ 166.667 mls/hr IVPB DAILY [facility] PRN Reason: Protocol Last Admin: 04/21/18 09:07 Dose: 166.667 mls/hr Lactobacillus Acidophilus (Bacid Acidophilus) 1 cap PO DAILY [facility] Last Admin: 04/21/18 09:01 Dose: 1 cap Lactulose (Enulose) 10 gm PO DAILY PRN PRN Reason: Constipation Multivitamins/Minerals (Therapeutic-M Tab) 1 tab PO DAILY [facility] Last Admin: 04/21/18 08:54 Dose: 1 tab Tamsulosin HCl (Flomax) 0.4 mg PO DAILY [facility] Last Admin: 04/21/18 08:54 Dose: 0.4 mg - Labs Labs: 04/21/18 08:00 04/21/18 08:00 PT 12.0 Seconds (9.8-13.1) 04/18/18 17:45 INR 1.1 (0.9-1.2) 04/18/18 17:45 APTT 27.8 Seconds (25.6-37.1) 04/18/18 17:45 - Additional Findings Additional findings: Date of service: 04/21/2018 PROCEDURE: Bilateral lower extremity venous duplex Doppler. HISTORY: leg swelling, r/o DVT Relevant surgical history: Recent right hip replacement COMPARISON: None available. TECHNIQUE: Bilateral common femoral, superficial femoral, popliteal and posterior tibial veins were evaluated. Flow was assessed with color Doppler, compressibility, assessment of phasic flow and augmentation response. FINDINGS: COMMON FEMORAL VEIN: Right CFV: Partial compressibility of the right common femoral vein. Left CFV: Unremarkable. SUPERFICIAL FEMORAL VEIN: Right SFV: Unremarkable. Left SFV: Unremarkable. POPLITEAL VEIN: Right Popliteal: Unremarkable. Left Popliteal: Unremarkable. POSTERIOR TIBIAL VEIN: Right PTV: Unremarkable. Left PTV: Unremarkable. OTHER FINDINGS: Lower extremity edema documented. IMPRESSION: Focal area of nonocclusive thrombus in the distal right common femoral vein. Negative study left lower extremity for acute deep vein thrombosis Assessment and Plan (1) Wound drainage Status: Acute (2) Acute blood loss anemia Status: Acute (3) Parkinsonism Status: Chronic (4) Vitamin D deficiency Status: Chronic
[2018-04-22 05:45] LABS: BASO % 0.6 % (0.0-2.0); EOS # 0.6 K/uL (0.0-0.7); EOS % 9.1 % (0.0-4.0); LYMPH # 1.1 K/uL (1.0-4.3); LYMPH % 16.7 % (20.0-40.0); MEAN CELL VOLUME 90.7 fl (80.0-94.0); MEAN CORPUSCULAR HGB CONC 34.1 g/dL (33.0-37.0); MEAN PLATELET VOLUME 7.2 fl (7.2-11.7); MONO # 0.7 K/uL (0.0-0.8); MONO % 10.4 % (0.0-10.0); NEUT # 4.1 K/uL (1.8-7.0); NEUT % 63.2 % (50.0-75.0); RBC 2.9 Mil/uL (4.40-5.90); RED CELL DISTRIBUTION WIDTH 16.1 % (11.5-14.5); WHITE BLOOD COUNT 6.4 K/uL (4.8-10.8)
[2018-04-22 06:09] LABS: BLOOD UREA NITROGEN 11 mg/dl (9-20); CALCIUM 8.2 mg/dL (8.4-10.2); GFR AFRICAN-AMERICAN > 60; GFR NON-AFRICAN AMERICAN > 60
[2018-04-22] MEDS: Lactobacillus Acidophilus 500 MU Cap PO SCH (11:03)
[2018-04-22] MEDS: Multivitamin With Minerals Tab PO SCH (11:04)
--- NOTE | 2018-04-22 12:33 | CP.PCM.PN ---
Subjective - Date & Time of Evaluation Date of Evaluation: 04/22/18 Time of Evaluation: 08:00 - Subjective Subjective: events noted has right common femoral dvt dr rogers on board iv antibiotics to cont Objective - Vital Signs/Intake and Output Vital Signs (last 24 hours): Temp Pulse Resp BP Pulse Ox 97.8 F 61 20 136/80 100 04/22/18 08:03 04/22/18 08:03 04/22/18 08:03 04/22/18 08:03 04/22/18 08:03 - Medications Medications: Current Medications Acetaminophen (Tylenol 325mg Tab) 650 mg PO Q4 PRN PRN Reason: Pain, moderate (4-7) Last Admin: 04/21/18 15:31 Dose: 650 mg Carbidopa/Levodopa (Sinemet) 2 tab PO Q12 [facility] Last Admin: 04/22/18 11:00 Dose: 2 tab Docusate Sodium (Colace) 200 mg PO DAILY [facility] Last Admin: 04/22/18 11:03 Dose: Not Given Enoxaparin Sodium (Lovenox) 70 mg SC Q12 [facility] PRN Reason: Protocol Ergocalciferol (Drisdol 50,000 Intl Units Cap) 1 cap PO QWK [facility] Last Admin: 04/17/18 08:39 Dose: 1 cap Ferrous Sulfate (Feosol) 325 mg PO TID [facility] Last Admin: 04/22/18 11:04 Dose: 325 mg Piperacillin Sod/Tazobactam (Sod 2.25 gm/ Sodium Chloride) 100 mls @ 100 mls/ hr IVPB Q8H [facility] PRN Reason: Protocol Last Admin: 04/21/18 22:10 Dose: 100 mls/hr Vancomycin HCl 1 gm/ Sodium (Chloride) 250 mls @ 166.667 mls/hr IVPB DAILY [facility] PRN Reason: Protocol Last Admin: 04/22/18 09:00 Dose: 166.667 mls/hr Lactobacillus Acidophilus (Bacid Acidophilus) 1 cap PO DAILY [facility] Last Admin: 04/22/18 11:03 Dose: 1 cap Lactulose (Enulose) 10 gm PO DAILY PRN PRN Reason: Constipation Multivitamins/Minerals (Therapeutic-M Tab) 1 tab PO DAILY [facility] Last Admin: 04/22/18 11:04 Dose: 1 tab Tamsulosin HCl (Flomax) 0.4 mg PO DAILY [facility] Last Admin: 04/22/18 11:04 Dose: 0.4 mg - Labs Labs: 04/22/18 05:25 04/22/18 05:25 PT 12.0 Seconds (9.8-13.1) 04/18/18 17:45 INR 1.1 (0.9-1.2) 04/18/18 17:45 APTT 27.8 Seconds (25.6-37.1) 04/18/18 17:45 - Constitutional Appears: Non-toxic, Chronically Ill - Head Exam Head Exam: NORMOCEPHALIC - Eye Exam Eye Exam: absent: Scleral icterus - ENT Exam ENT Exam: Mucous Membranes Dry - Neck Exam Neck Exam: absent: Lymphadenopathy - Respiratory Exam Respiratory Exam: Decreased Breath Sounds - Cardiovascular Exam Cardiovascular Exam: REGULAR RHYTHM - GI/Abdominal Exam GI & Abdominal Exam: Distended - Rectal Exam Rectal Exam: Deferred - Exam Exam: NORMAL INSPECTION - Extremities Exam Extremities Exam: Pedal Edema. absent: Calf Tenderness, Tenderness - Back Exam Back Exam: absent: CVA tenderness (L), CVA tenderness (R) - Neurological Exam Neurological Exam: Alert, Awake, Oriented x3 Assessment and Plan (1) Wound drainage Status: Acute - Assessment and Plan (Free Text) Assessment: cont iv rx anticoagulation for dvt iv antibiotics reordered
[2018-04-22] MEDS: Enoxaparin 80 mg Syringe SC SCH ×2 (13:30→21:00)
--- NOTE | 2018-04-22 13:56 | CP.PCM.PN ---
Subjective - Date & Time of Evaluation Date of Evaluation: 04/22/18 Time of Evaluation: 09:50 - Subjective Subjective: NO NEW COMPLAINTS Objective - Vital Signs/Intake and Output Vital Signs (last 24 hours): Temp Pulse Resp BP Pulse Ox 97.7 F 65 20 124/70 100 04/22/18 12:32 04/22/18 12:32 04/22/18 12:32 04/22/18 12:32 04/22/18 12:32 - Medications Medications: Current Medications Acetaminophen (Tylenol 325mg Tab) 650 mg PO Q4 PRN PRN Reason: Pain, moderate (4-7) Last Admin: 04/21/18 15:31 Dose: 650 mg Carbidopa/Levodopa (Sinemet) 2 tab PO Q12 [facility] Last Admin: 04/22/18 11:00 Dose: 2 tab Docusate Sodium (Colace) 200 mg PO DAILY [facility] Last Admin: 04/22/18 11:03 Dose: Not Given Enoxaparin Sodium (Lovenox) 70 mg SC Q12 [facility] PRN Reason: Protocol Last Admin: 04/22/18 13:30 Dose: 70 mg Ergocalciferol (Drisdol 50,000 Intl Units Cap) 1 cap PO QWK [facility] Last Admin: 04/17/18 08:39 Dose: 1 cap Ferrous Sulfate (Feosol) 325 mg PO TID [facility] Last Admin: 04/22/18 11:04 Dose: 325 mg Piperacillin Sod/Tazobactam (Sod 2.25 gm/ Sodium Chloride) 100 mls @ 100 mls/ hr IVPB Q8H [facility] PRN Reason: Protocol Last Admin: 04/22/18 13:39 Dose: 100 mls/hr Vancomycin HCl 1 gm/ Sodium (Chloride) 250 mls @ 166.667 mls/hr IVPB DAILY [facility] PRN Reason: Protocol Last Admin: 04/22/18 09:00 Dose: 166.667 mls/hr Lactobacillus Acidophilus (Bacid Acidophilus) 1 cap PO DAILY [facility] Last Admin: 04/22/18 11:03 Dose: 1 cap Lactulose (Enulose) 10 gm PO DAILY PRN PRN Reason: Constipation Multivitamins/Minerals (Therapeutic-M Tab) 1 tab PO DAILY [facility] Last Admin: 04/22/18 11:04 Dose: 1 tab Tamsulosin HCl (Flomax) 0.4 mg PO DAILY [facility] Last Admin: 04/22/18 11:04 Dose: 0.4 mg - Labs Labs: 04/22/18 05:25 04/22/18 05:25 PT 12.0 Seconds (9.8-13.1) 04/18/18 17:45 INR 1.1 (0.9-1.2) 04/18/18 17:45 APTT 27.8 Seconds (25.6-37.1) 04/18/18 17:45 - Respiratory Exam Respiratory Exam: Clear to Ausculation Bilateral - Cardiovascular Exam Cardiovascular Exam: REGULAR RHYTHM, +S1, +S2 - Extremities Exam Extremities Exam: Pedal Edema - Additional Findings Additional findings: SHIRT SORTER SINUS, R 70 LE VENOUS DOPPLER WITH RLE DVT CT REPORT NOTED Assessment and Plan - Assessment and Plan (Free Text) Assessment: S/P RIGHT HIP INFECTION AND REVISION Plan: CONTINUE ANTIBIOTICS LOVENOX INCREASED IN DOSE FOR DVT
--- NOTE | 2018-04-22 14:09 | CP.PCM.PN ---
Subjective - Date & Time of Evaluation Date of Evaluation: 04/22/18 Time of Evaluation: 14:07 - Subjective Subjective: Patient states pain is controlled. Had tension blister from tape on thigh. Denies CP/SOB/dizziness/cough/palpitations. Objective - Vital Signs/Intake and Output Vital Signs (last 24 hours): Temp Pulse Resp BP Pulse Ox 97.7 F 65 20 124/70 100 04/22/18 12:32 04/22/18 12:32 04/22/18 12:32 04/22/18 12:32 04/22/18 12:32 - Medications Medications: Current Medications Acetaminophen (Tylenol 325mg Tab) 650 mg PO Q4 PRN PRN Reason: Pain, moderate (4-7) Last Admin: 04/21/18 15:31 Dose: 650 mg Carbidopa/Levodopa (Sinemet) 2 tab PO Q12 [facility] Last Admin: 04/22/18 11:00 Dose: 2 tab Enoxaparin Sodium (Lovenox) 70 mg SC Q12 [facility] PRN Reason: Protocol Last Admin: 04/22/18 13:30 Dose: 70 mg Ergocalciferol (Drisdol 50,000 Intl Units Cap) 1 cap PO QWK [facility] Last Admin: 04/17/18 08:39 Dose: 1 cap Ferrous Sulfate (Feosol) 325 mg PO TID [facility] Last Admin: 04/22/18 11:04 Dose: 325 mg Piperacillin Sod/Tazobactam (Sod 2.25 gm/ Sodium Chloride) 100 mls @ 100 mls/ hr IVPB Q8H [facility] PRN Reason: Protocol Last Admin: 04/22/18 13:39 Dose: 100 mls/hr Vancomycin HCl 1 gm/ Sodium (Chloride) 250 mls @ 166.667 mls/hr IVPB DAILY [facility] PRN Reason: Protocol Last Admin: 04/22/18 09:00 Dose: 166.667 mls/hr Lactobacillus Acidophilus (Bacid Acidophilus) 1 cap PO DAILY [facility] Last Admin: 04/22/18 11:03 Dose: 1 cap Lactulose (Enulose) 10 gm PO DAILY PRN PRN Reason: Constipation Multivitamins/Minerals (Therapeutic-M Tab) 1 tab PO DAILY [facility] Last Admin: 04/22/18 11:04 Dose: 1 tab Tamsulosin HCl (Flomax) 0.4 mg PO DAILY [facility] Last Admin: 04/22/18 11:04 Dose: 0.4 mg - Labs Labs: 04/22/18 05:25 04/22/18 05:25 PT 12.0 Seconds (9.8-13.1) 04/18/18 17:45 INR 1.1 (0.9-1.2) 04/18/18 17:45 APTT 27.8 Seconds (25.6-37.1) 04/18/18 17:45 - Extremities Exam Additional comments: Right hip: increased drainage sang in canister, prevena intact, small area of broken blister medial thigh. No erythema. +ROM ankle/toes, sensation intact, calves soft NT neghomans, no increased swelling to thigh Assessment and Plan (1) Wound drainage Assessment & Plan: POD#4 s/p right THR revision DVT right common femoral on therapeutic lovenox for IVCF cont prevena hgb stable no clinical signs or symptoms of PE d/w Dr. Umana, agrees with above resume PT after anticoagulated as soon as possible Status: Acute (2) Acute blood loss anemia Assessment & Plan: stable Status: Acute
--- NOTE | 2018-04-22 14:42 | CP.PCM.PN ---
Subjective - Date & Time of Evaluation Date of Evaluation: 04/22/18 Time of Evaluation: 10:15 Objective - Vital Signs/Intake and Output Vital Signs (last 24 hours): Temp Pulse Resp BP Pulse Ox 97.7 F 65 20 124/70 100 04/22/18 12:32 04/22/18 12:32 04/22/18 12:32 04/22/18 12:32 04/22/18 12:32 - Medications Medications: Current Medications Acetaminophen (Tylenol 325mg Tab) 650 mg PO Q4 PRN PRN Reason: Pain, moderate (4-7) Last Admin: 04/21/18 15:31 Dose: 650 mg Carbidopa/Levodopa (Sinemet) 2 tab PO Q12 [facility] Last Admin: 04/22/18 11:00 Dose: 2 tab Enoxaparin Sodium (Lovenox) 70 mg SC Q12 [facility] PRN Reason: Protocol Last Admin: 04/22/18 13:30 Dose: 70 mg Ergocalciferol (Drisdol 50,000 Intl Units Cap) 1 cap PO QWK [facility] Last Admin: 04/17/18 08:39 Dose: 1 cap Ferrous Sulfate (Feosol) 325 mg PO TID [facility] Last Admin: 04/22/18 11:04 Dose: 325 mg Piperacillin Sod/Tazobactam (Sod 2.25 gm/ Sodium Chloride) 100 mls @ 100 mls/ hr IVPB Q8H [facility] PRN Reason: Protocol Last Admin: 04/22/18 13:39 Dose: 100 mls/hr Vancomycin HCl 1 gm/ Sodium (Chloride) 250 mls @ 166.667 mls/hr IVPB DAILY [facility] PRN Reason: Protocol Last Admin: 04/22/18 09:00 Dose: 166.667 mls/hr Lactobacillus Acidophilus (Bacid Acidophilus) 1 cap PO DAILY [facility] Last Admin: 04/22/18 11:03 Dose: 1 cap Lactulose (Enulose) 10 gm PO DAILY PRN PRN Reason: Constipation Multivitamins/Minerals (Therapeutic-M Tab) 1 tab PO DAILY [facility] Last Admin: 04/22/18 11:04 Dose: 1 tab Tamsulosin HCl (Flomax) 0.4 mg PO DAILY [facility] Last Admin: 04/22/18 11:04 Dose: 0.4 mg - Labs Labs: 04/22/18 05:25 04/22/18 05:25 PT 12.0 Seconds (9.8-13.1) 04/18/18 17:45 INR 1.1 (0.9-1.2) 04/18/18 17:45 APTT 27.8 Seconds (25.6-37.1) 04/18/18 17:45 Assessment and Plan (1) Wound drainage Status: Acute (2) Acute blood loss anemia Status: Acute (3) Parkinsonism Status: Chronic (4) Vitamin D deficiency Status: Chronic
[2018-04-22] MEDS ORDERED: Enoxaparin 80 mg Syringe SC SCH (21:00)
[2018-04-23] MEDS: Enoxaparin 80 mg Syringe SC SCH ×2 (01:02→13:07)
[2018-04-23] MEDS: Multivitamin With Minerals Tab PO SCH (08:40)
[2018-04-23] MEDS: Lactobacillus Acidophilus 500 MU Cap PO SCH (08:43)
--- NOTE | 2018-04-23 12:58 | CP.PCM.PN ---
Subjective - Date & Time of Evaluation Date of Evaluation: 04/23/18 Time of Evaluation: 11:15 - Subjective Subjective: S- pt with minimal discomfort Objective - Vital Signs/Intake and Output Vital Signs (last 24 hours): Temp Pulse Resp BP Pulse Ox 98 F 75 18 105/67 96 04/23/18 12:00 04/23/18 12:00 04/23/18 12:00 04/23/18 12:00 04/23/18 12:00 - Medications Medications: Current Medications Acetaminophen (Tylenol 325mg Tab) 650 mg PO Q4 PRN PRN Reason: Pain, moderate (4-7) Last Admin: 04/21/18 15:31 Dose: 650 mg Carbidopa/Levodopa (Sinemet) 2 tab PO Q12 [facility] Last Admin: 04/23/18 08:40 Dose: 2 tab Enoxaparin Sodium (Lovenox) 70 mg SC Q12@0100,1300 [facility] PRN Reason: Protocol Last Admin: 04/23/18 01:02 Dose: 70 mg Ergocalciferol (Drisdol 50,000 Intl Units Cap) 1 cap PO QWK [facility] Last Admin: 04/17/18 08:39 Dose: 1 cap Ferrous Sulfate (Feosol) 325 mg PO TID [facility] Last Admin: 04/23/18 08:39 Dose: 325 mg Piperacillin Sod/Tazobactam (Sod 2.25 gm/ Sodium Chloride) 100 mls @ 100 mls/ hr IVPB Q8H [facility] PRN Reason: Protocol Last Admin: 04/23/18 04:39 Dose: 100 mls/hr Vancomycin HCl 1 gm/ Sodium (Chloride) 250 mls @ 166.667 mls/hr IVPB DAILY [facility] PRN Reason: Protocol Last Admin: 04/23/18 08:38 Dose: 166.667 mls/hr Lactobacillus Acidophilus (Bacid Acidophilus) 1 cap PO DAILY [facility] Last Admin: 04/23/18 08:43 Dose: 1 cap Lactulose (Enulose) 10 gm PO DAILY PRN PRN Reason: Constipation Multivitamins/Minerals (Therapeutic-M Tab) 1 tab PO DAILY [facility] Last Admin: 04/23/18 08:40 Dose: 1 tab Tamsulosin HCl (Flomax) 0.4 mg PO DAILY [facility] Last Admin: 04/23/18 08:40 Dose: 0.4 mg - Labs Labs: 04/22/18 05:25 04/22/18 05:25 PT 12.0 Seconds (9.8-13.1) 04/18/18 17:45 INR 1.1 (0.9-1.2) 04/18/18 17:45 APTT 27.8 Seconds (25.6-37.1) 04/18/18 17:45 - Additional Findings Additional findings: Objective Musculoskektlal: decreased thigh tenderness/decreased thigh circumfeerence N/ V intact provena drain intact no evidence for recurrent sepsis Assessment and Plan - Assessment and Plan (Free Text) Assessment: A- s/p I+D and revsioin R thr (anterior approach) P- continue IV abios dressign change Sinndlaurence
--- NOTE | 2018-04-23 13:37 | CP.PCM.PN ---
Subjective - Date & Time of Evaluation Date of Evaluation: 04/23/18 Time of Evaluation: 12:00 - Subjective Subjective: NO CHEST PAIN OR SOB Objective - Vital Signs/Intake and Output Vital Signs (last 24 hours): Temp Pulse Resp BP Pulse Ox 98 F 75 18 105/67 96 04/23/18 12:00 04/23/18 12:00 04/23/18 12:00 04/23/18 12:00 04/23/18 12:00 - Medications Medications: Current Medications Acetaminophen (Tylenol 325mg Tab) 650 mg PO Q4 PRN PRN Reason: Pain, moderate (4-7) Last Admin: 04/21/18 15:31 Dose: 650 mg Carbidopa/Levodopa (Sinemet) 2 tab PO Q12 [facility] Last Admin: 04/23/18 08:40 Dose: 2 tab Enoxaparin Sodium (Lovenox) 70 mg SC Q12@0100,1300 [facility] PRN Reason: Protocol Last Admin: 04/23/18 13:07 Dose: 70 mg Ergocalciferol (Drisdol 50,000 Intl Units Cap) 1 cap PO QWK [facility] Last Admin: 04/17/18 08:39 Dose: 1 cap Ferrous Sulfate (Feosol) 325 mg PO TID [facility] Last Admin: 04/23/18 13:07 Dose: 325 mg Piperacillin Sod/Tazobactam (Sod 2.25 gm/ Sodium Chloride) 100 mls @ 100 mls/ hr IVPB Q8H [facility] PRN Reason: Protocol Last Admin: 04/23/18 13:08 Dose: 100 mls/hr Vancomycin HCl 1 gm/ Sodium (Chloride) 250 mls @ 166.667 mls/hr IVPB DAILY [facility] PRN Reason: Protocol Last Admin: 04/23/18 08:38 Dose: 166.667 mls/hr Lactobacillus Acidophilus (Bacid Acidophilus) 1 cap PO DAILY [facility] Last Admin: 04/23/18 08:43 Dose: 1 cap Lactulose (Enulose) 10 gm PO DAILY PRN PRN Reason: Constipation Multivitamins/Minerals (Therapeutic-M Tab) 1 tab PO DAILY [facility] Last Admin: 04/23/18 08:40 Dose: 1 tab Tamsulosin HCl (Flomax) 0.4 mg PO DAILY [facility] Last Admin: 04/23/18 08:40 Dose: 0.4 mg - Labs Labs: 07/13/18 05:25 04/22/18 05:25 PT 12.0 Seconds (9.8-13.1) 04/18/18 17:45 INR 1.1 (0.9-1.2) 04/18/18 17:45 APTT 27.8 Seconds (25.6-37.1) 04/18/18 17:45 - Respiratory Exam Respiratory Exam: Clear to Ausculation Bilateral - Cardiovascular Exam Cardiovascular Exam: REGULAR RHYTHM, +S1, +S2 Assessment and Plan - Assessment and Plan (Free Text) Assessment: S/P RIGHT HIP INFECTION WITH REVISION RLE DVT Plan: CONTINUE IV ANTIBIOTICS AND LOVENOX
--- NOTE | 2018-04-23 16:02 | CP.PCM.PN ---
Subjective - Date & Time of Evaluation Date of Evaluation: 04/23/18 Time of Evaluation: 15:45 Objective - Vital Signs/Intake and Output Vital Signs (last 24 hours): Temp Pulse Resp BP Pulse Ox 98 F 75 18 105/67 96 04/23/18 12:00 04/23/18 12:00 04/23/18 12:00 04/23/18 12:00 04/23/18 12:00 - Medications Medications: Current Medications Acetaminophen (Tylenol 325mg Tab) 650 mg PO Q4 PRN PRN Reason: Pain, moderate (4-7) Last Admin: 04/21/18 15:31 Dose: 650 mg Carbidopa/Levodopa (Sinemet) 2 tab PO Q12 [facility] Last Admin: 04/23/18 08:40 Dose: 2 tab Enoxaparin Sodium (Lovenox) 70 mg SC Q12@0100,1300 [facility] PRN Reason: Protocol Last Admin: 04/23/18 13:07 Dose: 70 mg Ergocalciferol (Drisdol 50,000 Intl Units Cap) 1 cap PO QWK [facility] Last Admin: 04/17/18 08:39 Dose: 1 cap Ferrous Sulfate (Feosol) 325 mg PO TID [facility] Last Admin: 04/23/18 13:07 Dose: 325 mg Piperacillin Sod/Tazobactam (Sod 2.25 gm/ Sodium Chloride) 100 mls @ 100 mls/ hr IVPB Q8H [facility] PRN Reason: Protocol Last Admin: 04/23/18 13:08 Dose: 100 mls/hr Vancomycin HCl 1 gm/ Sodium (Chloride) 250 mls @ 166.667 mls/hr IVPB DAILY [facility] PRN Reason: Protocol Last Admin: 04/23/18 08:38 Dose: 166.667 mls/hr Lactobacillus Acidophilus (Bacid Acidophilus) 1 cap PO DAILY [facility] Last Admin: 04/23/18 08:43 Dose: 1 cap Lactulose (Enulose) 10 gm PO DAILY PRN PRN Reason: Constipation Multivitamins/Minerals (Therapeutic-M Tab) 1 tab PO DAILY [facility] Last Admin: 04/23/18 08:40 Dose: 1 tab Tamsulosin HCl (Flomax) 0.4 mg PO DAILY [facility] Last Admin: 04/23/18 08:40 Dose: 0.4 mg - Labs Labs: 04/22/18 05:25 04/22/18 05:25 PT 12.0 Seconds (9.8-13.1) 04/18/18 17:45 INR 1.1 (0.9-1.2) 04/18/18 17:45 APTT 27.8 Seconds (25.6-37.1) 04/18/18 17:45 Assessment and Plan (1) Wound drainage Assessment & Plan: Right Hip Arthroplasty and Revision Wound Care Daily IV Cefepime and Vancomycin Vanco T/P Pain Medication PRN Ortho, ID and Cardiology on Board Treatment Attempt with IV, Antibiotics, and Possible Wash if Drainage Persist Status: Acute Priority: High (2) Svere Anemai S/P Multiple Transfusion Status: Chronic Priority: Medium due to Acute Blood Loss and IVF Dilution H/H stable (3) Vitamin D deficiency Status: Acute
[2018-04-24] MEDS: Enoxaparin 80 mg Syringe SC SCH ×2 (00:04→13:03)
[2018-04-24 06:21] LABS: HEMOGLOBIN 8.7 g/dL (12.0-18.0); MEAN CELL VOLUME 91.6 fl (80.0-94.0); MEAN CORPUSCULAR HEMOGLOBIN 31.2 pg (27.0-31.0); MEAN CORPUSCULAR HGB CONC 34.1 g/dL (33.0-37.0); RBC 2.79 Mil/uL (4.40-5.90); RED CELL DISTRIBUTION WIDTH 15.9 % (11.5-14.5); WHITE BLOOD COUNT 5.8 K/uL (4.8-10.8)
[2018-04-24 06:46] LABS: ALB/GLOB RATIO 0.9 (1.0-2.1); ALBUMIN 2.5 g/dL (3.5-5.0); ALT/SGPT 15 U/L (21-72); AST/SGOT 28 U/L (17-59); BLOOD UREA NITROGEN 14 mg/dl (9-20); CALCIUM 8.3 mg/dL (8.4-10.2); GFR AFRICAN-AMERICAN > 60; GFR NON-AFRICAN AMERICAN > 60
[2018-04-24] MEDS: Lactobacillus Acidophilus 500 MU Cap PO SCH (08:18)
[2018-04-24] MEDS: Multivitamin With Minerals Tab PO SCH (08:18)
--- NOTE | 2018-04-24 12:06 | CP.PCM.PN ---
Subjective - Date & Time of Evaluation Date of Evaluation: 04/24/18 Time of Evaluation: 08:00 - Subjective Subjective: afeb on rounds in NAD Objective - Vital Signs/Intake and Output Vital Signs (last 24 hours): Temp Pulse Resp BP Pulse Ox 98.3 F 63 20 106/52 L 98 04/24/18 08:00 04/24/18 09:00 04/24/18 08:00 04/24/18 08:00 04/24/18 08:00 - Medications Medications: Current Medications Acetaminophen (Tylenol 325mg Tab) 650 mg PO Q4 PRN PRN Reason: Pain, moderate (4-7) Last Admin: 04/21/18 15:31 Dose: 650 mg Carbidopa/Levodopa (Sinemet) 2 tab PO Q12 [facility] Last Admin: 04/24/18 08:18 Dose: 2 tab Enoxaparin Sodium (Lovenox) 70 mg SC Q12@0100,1300 [facility] PRN Reason: Protocol Last Admin: 04/24/18 00:04 Dose: 70 mg Ergocalciferol (Drisdol 50,000 Intl Units Cap) 1 cap PO QWK [facility] Last Admin: 04/17/18 08:39 Dose: 1 cap Ferrous Sulfate (Feosol) 325 mg PO TID [facility] Last Admin: 04/24/18 08:18 Dose: 325 mg Piperacillin Sod/Tazobactam (Sod 2.25 gm/ Sodium Chloride) 100 mls @ 100 mls/ hr IVPB Q8H [facility] PRN Reason: Protocol Last Admin: 04/24/18 04:25 Dose: 100 mls/hr Lactobacillus Acidophilus (Bacid Acidophilus) 1 cap PO DAILY [facility] Last Admin: 04/24/18 08:18 Dose: 1 cap Lactulose (Enulose) 10 gm PO DAILY PRN PRN Reason: Constipation Multivitamins/Minerals (Therapeutic-M Tab) 1 tab PO DAILY [facility] Last Admin: 04/24/18 08:18 Dose: 1 tab Tamsulosin HCl (Flomax) 0.4 mg PO DAILY [facility] Last Admin: 04/24/18 08:18 Dose: 0.4 mg - Labs Labs: 04/24/18 05:45 04/24/18 05:45 PT 12.0 Seconds (9.8-13.1) 04/18/18 17:45 INR 1.1 (0.9-1.2) 04/18/18 17:45 APTT 27.8 Seconds (25.6-37.1) 04/18/18 17:45 - Constitutional Appears: Non-toxic, Chronically Ill - Head Exam Head Exam: NORMOCEPHALIC - Eye Exam Eye Exam: PERRL - ENT Exam ENT Exam: Mucous Membranes Dry - Neck Exam Neck Exam: absent: Lymphadenopathy - Respiratory Exam Respiratory Exam: Decreased Breath Sounds - Cardiovascular Exam Cardiovascular Exam: REGULAR RHYTHM - GI/Abdominal Exam GI & Abdominal Exam: Distended - Rectal Exam Rectal Exam: Deferred - Exam Exam: NORMAL INSPECTION - Extremities Exam Extremities Exam: absent: Pedal Edema - Back Exam Back Exam: absent: CVA tenderness (L), CVA tenderness (R) - Neurological Exam Neurological Exam: Alert, Awake, CN II-XII Intact, Oriented x3 - Psychiatric Exam Psychiatric exam: Normal Mood - Skin Skin Exam: Dry Assessment and Plan (1) Wound drainage Status: Acute - Assessment and Plan (Free Text) Assessment: cont iv rx for 6-8 weeks
[2018-04-24] MEDS: Ergocalciferol 50,000 Intl Units Cap PO SCH (16:47)
[2018-04-25] MEDS: Enoxaparin 80 mg Syringe SC SCH ×2 (00:30→13:53)
[2018-04-25] MEDS: Lactobacillus Acidophilus 500 MU Cap PO SCH (09:12)
[2018-04-25] MEDS: Multivitamin With Minerals Tab PO SCH (09:13)
--- NOTE | 2018-04-25 09:47 | CP.PCM.PN ---
Subjective - Date & Time of Evaluation Date of Evaluation: 04/25/18 Time of Evaluation: 08:30 - Subjective Subjective: Patient seen and examined at bedside comfortable. Pain much improved this AM compared to yesterday. On contact isolation after testing + for C diff over weekend. No other complaints. Objective - Vital Signs/Intake and Output Vital Signs (last 24 hours): Temp Pulse Resp BP Pulse Ox 98.2 F 84 18 103/55 L 97 04/25/18 08:24 04/25/18 08:24 04/25/18 08:24 04/25/18 08:24 04/25/18 08:24 - Medications Medications: Current Medications Acetaminophen (Tylenol 325mg Tab) 650 mg PO Q4 PRN PRN Reason: Pain, moderate (4-7) Last Admin: 04/21/18 15:31 Dose: 650 mg Carbidopa/Levodopa (Sinemet) 2 tab PO Q12 [facility] Last Admin: 04/25/18 09:14 Dose: 2 tab Enoxaparin Sodium (Lovenox) 70 mg SC Q12@0100,1300 [facility] PRN Reason: Protocol Last Admin: 04/25/18 00:30 Dose: 70 mg Ergocalciferol (Drisdol 50,000 Intl Units Cap) 1 cap PO SUN [facility] Last Admin: 04/24/18 16:47 Dose: 1 cap Ferrous Sulfate (Feosol) 325 mg PO TID [facility] Last Admin: 04/25/18 09:13 Dose: 325 mg Vancomycin HCl 1 gm/ Sodium (Chloride) 250 mls @ 166.667 mls/hr IVPB Q12 [facility] PRN Reason: Protocol Last Admin: 04/25/18 09:15 Dose: 166.667 mls/hr Lactobacillus Acidophilus (Bacid Acidophilus) 1 cap PO DAILY [facility] Last Admin: 04/25/18 09:12 Dose: 1 cap Lactulose (Enulose) 10 gm PO DAILY PRN PRN Reason: Constipation Multivitamins/Minerals (Therapeutic-M Tab) 1 tab PO DAILY [facility] Last Admin: 04/25/18 09:13 Dose: 1 tab Tamsulosin HCl (Flomax) 0.4 mg PO DAILY [facility] Last Admin: 04/25/18 09:14 Dose: 0.4 mg Vancomycin HCl (Vancocin (Oral/Rectal Use)) 125 mg PO Q6 [facility] PRN Reason: Protocol - Labs Labs: 04/24/18 05:45 04/24/18 05:45 PT 12.0 Seconds (9.8-13.1) 04/18/18 17:45 INR 1.1 (0.9-1.2) 04/18/18 17:45 APTT 27.8 Seconds (25.6-37.1) 04/18/18 17:45 - Extremities Exam Additional comments: R hip: Prevena dressings intact with minimal bloody drainage, prevena removed revealing wound intact with moderate dark bloody drainage from proximal aspect of wound mild swelling sensation intact SP/DP/TN motor intact EHL/FHL/TA/G pedal pulses intact comps soft NT Assessment and Plan (1) Wound drainage Assessment & Plan: POD# 7 s/p R revision DONELL -PREVENA dressing changed. Continue to monitor output -PT/OT -abx as per ID -orthopedically stable -above d/w Dr. Umana in agreement Status: Acute Procedures Attestation:: I certify that I have explained the specified Operation(s) or Procedure(s), risks, benefits and reasonable alternatives to the Patient and/or other person responsible. The opportunity was given to ask questions and all questions answered - Dressing Care Location #1 Debridment Necessary: No Dressing Type: Dry Sterile (PREVENA VAC dressings) Neurovascular Qualities Intact: Yes Patient Tolerated Procedure: well
--- NOTE | 2018-04-25 10:21 | CP.PCM.PN ---
Subjective - Date & Time of Evaluation Date of Evaluation: 04/25/18 Time of Evaluation: 09:00 - Subjective Subjective: + stool c diff po vanco added Objective - Vital Signs/Intake and Output Vital Signs (last 24 hours): Temp Pulse Resp BP Pulse Ox 98.2 F 84 18 103/55 L 97 04/25/18 08:24 04/25/18 08:24 04/25/18 08:24 04/25/18 08:24 04/25/18 08:24 - Medications Medications: Current Medications Acetaminophen (Tylenol 325mg Tab) 650 mg PO Q4 PRN PRN Reason: Pain, moderate (4-7) Last Admin: 04/21/18 15:31 Dose: 650 mg Carbidopa/Levodopa (Sinemet) 2 tab PO Q12 [facility] Last Admin: 04/25/18 09:14 Dose: 2 tab Enoxaparin Sodium (Lovenox) 70 mg SC Q12@0100,1300 [facility] PRN Reason: Protocol Last Admin: 04/25/18 00:30 Dose: 70 mg Ergocalciferol (Drisdol 50,000 Intl Units Cap) 1 cap PO SUN [facility] Last Admin: 04/24/18 16:47 Dose: 1 cap Ferrous Sulfate (Feosol) 325 mg PO TID [facility] Last Admin: 04/25/18 09:13 Dose: 325 mg Vancomycin HCl 1 gm/ Sodium (Chloride) 250 mls @ 166.667 mls/hr IVPB Q12 [facility] PRN Reason: Protocol Last Admin: 04/25/18 09:15 Dose: 166.667 mls/hr Lactobacillus Acidophilus (Bacid Acidophilus) 1 cap PO DAILY [facility] Last Admin: 04/25/18 09:12 Dose: 1 cap Lactulose (Enulose) 10 gm PO DAILY PRN PRN Reason: Constipation Multivitamins/Minerals (Therapeutic-M Tab) 1 tab PO DAILY [facility] Last Admin: 04/25/18 09:13 Dose: 1 tab Tamsulosin HCl (Flomax) 0.4 mg PO DAILY [facility] Last Admin: 04/25/18 09:14 Dose: 0.4 mg Vancomycin HCl (Vancocin (Oral/Rectal Use)) 125 mg PO Q6 [facility] PRN Reason: Protocol - Labs Labs: 04/24/18 05:45 04/24/18 05:45 PT 12.0 Seconds (9.8-13.1) 04/18/18 17:45 INR 1.1 (0.9-1.2) 04/18/18 17:45 APTT 27.8 Seconds (25.6-37.1) 04/18/18 17:45 - Constitutional Appears: Non-toxic, Chronically Ill - Head Exam Head Exam: NORMOCEPHALIC - Eye Exam Eye Exam: PERRL - ENT Exam ENT Exam: Mucous Membranes Dry - Neck Exam Neck Exam: absent: Lymphadenopathy - Respiratory Exam Respiratory Exam: Decreased Breath Sounds - Cardiovascular Exam Cardiovascular Exam: REGULAR RHYTHM - GI/Abdominal Exam GI & Abdominal Exam: Distended - Rectal Exam Rectal Exam: Deferred - Exam Exam: NORMAL INSPECTION Assessment and Plan (1) Wound drainage Status: Acute - Assessment and Plan (Free Text) Assessment: cont vac drainage IV and PO Vanco
--- NOTE | 2018-04-25 10:24 | CP.PCM.PN ---
Subjective - Date & Time of Evaluation Date of Evaluation: 04/25/18 Time of Evaluation: 08:20 - Subjective Subjective: NO CARDIAC COMPLAINTS Objective - Vital Signs/Intake and Output Vital Signs (last 24 hours): Temp Pulse Resp BP Pulse Ox 98.2 F 84 18 103/55 L 97 04/25/18 08:24 04/25/18 08:24 04/25/18 08:24 04/25/18 08:24 04/25/18 08:24 - Medications Medications: Current Medications Acetaminophen (Tylenol 325mg Tab) 650 mg PO Q4 PRN PRN Reason: Pain, moderate (4-7) Last Admin: 04/21/18 15:31 Dose: 650 mg Carbidopa/Levodopa (Sinemet) 2 tab PO Q12 [facility] Last Admin: 04/25/18 09:14 Dose: 2 tab Enoxaparin Sodium (Lovenox) 70 mg SC Q12@0100,1300 [facility] PRN Reason: Protocol Last Admin: 04/25/18 00:30 Dose: 70 mg Ergocalciferol (Drisdol 50,000 Intl Units Cap) 1 cap PO SUN [facility] Last Admin: 04/24/18 16:47 Dose: 1 cap Ferrous Sulfate (Feosol) 325 mg PO TID [facility] Last Admin: 04/25/18 09:13 Dose: 325 mg Vancomycin HCl 1 gm/ Sodium (Chloride) 250 mls @ 166.667 mls/hr IVPB Q12 [facility] PRN Reason: Protocol Last Admin: 04/25/18 09:15 Dose: 166.667 mls/hr Lactobacillus Acidophilus (Bacid Acidophilus) 1 cap PO DAILY [facility] Last Admin: 04/25/18 09:12 Dose: 1 cap Lactulose (Enulose) 10 gm PO DAILY PRN PRN Reason: Constipation Multivitamins/Minerals (Therapeutic-M Tab) 1 tab PO DAILY [facility] Last Admin: 04/25/18 09:13 Dose: 1 tab Tamsulosin HCl (Flomax) 0.4 mg PO DAILY [facility] Last Admin: 04/25/18 09:14 Dose: 0.4 mg Vancomycin HCl (Vancocin (Oral/Rectal Use)) 125 mg PO Q6 [facility] PRN Reason: Protocol - Labs Labs: 04/24/18 05:45 04/24/18 05:45 PT 12.0 Seconds (9.8-13.1) 04/18/18 17:45 INR 1.1 (0.9-1.2) 04/18/18 17:45 APTT 27.8 Seconds (25.6-37.1) 04/18/18 17:45 - Respiratory Exam Respiratory Exam: Clear to Ausculation Bilateral - Cardiovascular Exam Cardiovascular Exam: REGULAR RHYTHM, +S1, +S2 - Extremities Exam Additional comments: RLE EDEMA - Additional Findings Additional findings: ID NOTE REVIEWED WITH 6-8 OF IV ANTIBIOTICS RECOMMENDED Assessment and Plan - Assessment and Plan (Free Text) Assessment: S/P SURGERY FOR INFECTED RIGHT HIP PARKINSONISM Plan: CONTINUE IV ANTIBIOTICS AND LOVENOX
--- NOTE | 2018-04-25 12:58 | CP.PCM.PN ---
Subjective - Date & Time of Evaluation Date of Evaluation: 04/24/18 Time of Evaluation: 13:00 Objective - Vital Signs/Intake and Output Vital Signs (last 24 hours): Temp Pulse Resp BP Pulse Ox 98.2 F 84 18 103/55 L 97 04/25/18 08:24 04/25/18 08:24 04/25/18 08:24 04/25/18 08:24 04/25/18 08:24 - Medications Medications: Current Medications Acetaminophen (Tylenol 325mg Tab) 650 mg PO Q4 PRN PRN Reason: Pain, moderate (4-7) Last Admin: 04/21/18 15:31 Dose: 650 mg Carbidopa/Levodopa (Sinemet) 2 tab PO Q12 [facility] Last Admin: 04/25/18 09:14 Dose: 2 tab Enoxaparin Sodium (Lovenox) 70 mg SC Q12@0100,1300 [facility] PRN Reason: Protocol Last Admin: 04/25/18 00:30 Dose: 70 mg Ergocalciferol (Drisdol 50,000 Intl Units Cap) 1 cap PO SUN [facility] Last Admin: 04/24/18 16:47 Dose: 1 cap Ferrous Sulfate (Feosol) 325 mg PO TID [facility] Last Admin: 04/25/18 09:13 Dose: 325 mg Vancomycin HCl 1 gm/ Sodium (Chloride) 250 mls @ 166.667 mls/hr IVPB Q12 [facility] PRN Reason: Protocol Last Admin: 04/25/18 09:15 Dose: 166.667 mls/hr Lactobacillus Acidophilus (Bacid Acidophilus) 1 cap PO DAILY [facility] Last Admin: 04/25/18 09:12 Dose: 1 cap Lactulose (Enulose) 10 gm PO DAILY PRN PRN Reason: Constipation Multivitamins/Minerals (Therapeutic-M Tab) 1 tab PO DAILY [facility] Last Admin: 04/25/18 09:13 Dose: 1 tab Tamsulosin HCl (Flomax) 0.4 mg PO DAILY [facility] Last Admin: 04/25/18 09:14 Dose: 0.4 mg Vancomycin HCl (Vancocin (Oral/Rectal Use)) 125 mg PO Q6 [facility] PRN Reason: Protocol - Labs Labs: 04/24/18 05:45 04/24/18 05:45 PT 12.0 Seconds (9.8-13.1) 04/18/18 17:45 INR 1.1 (0.9-1.2) 04/18/18 17:45 APTT 27.8 Seconds (25.6-37.1) 04/18/18 17:45 Assessment and Plan (1) Wound drainage Status: Acute
[2018-04-25] MEDS: Vancomycin 500 mg (Oral/Rectal USE) PO SCH ×3 (13:54→21:31)
--- NOTE | 2018-04-25 23:05 | CP.PCM.PN ---
Subjective - Date & Time of Evaluation Date of Evaluation: 04/25/18 Time of Evaluation: 11:50 Objective - Vital Signs/Intake and Output Vital Signs (last 24 hours): Temp Pulse Resp BP Pulse Ox 97.4 F L 69 20 118/67 99 04/25/18 18:57 04/25/18 18:57 04/25/18 18:57 04/25/18 18:57 04/25/18 18:57 Intake and Output: 04/25/18 04/26/18 18:59 06:59 Intake Total 890 Output Total 350 Balance 540 - Medications Medications: Current Medications Acetaminophen (Tylenol 325mg Tab) 650 mg PO Q4 PRN PRN Reason: Pain, moderate (4-7) Last Admin: 04/21/18 15:31 Dose: 650 mg Carbidopa/Levodopa (Sinemet) 2 tab PO Q12 [facility] Last Admin: 04/25/18 21:34 Dose: 2 tab Enoxaparin Sodium (Lovenox) 70 mg SC Q12@0100,1300 [facility] PRN Reason: Protocol Last Admin: 04/25/18 13:53 Dose: 70 mg Ergocalciferol (Drisdol 50,000 Intl Units Cap) 1 cap PO SUN [facility] Last Admin: 04/24/18 16:47 Dose: 1 cap Ferrous Sulfate (Feosol) 325 mg PO TID [facility] Last Admin: 04/25/18 17:30 Dose: 325 mg Vancomycin HCl 1 gm/ Sodium (Chloride) 250 mls @ 166.667 mls/hr IVPB Q12 [facility] PRN Reason: Protocol Last Admin: 04/25/18 21:29 Dose: 166.667 mls/hr Lactobacillus Acidophilus (Bacid Acidophilus) 1 cap PO DAILY [facility] Last Admin: 04/25/18 09:12 Dose: 1 cap Lactulose (Enulose) 10 gm PO DAILY PRN PRN Reason: Constipation Multivitamins/Minerals (Therapeutic-M Tab) 1 tab PO DAILY [facility] Last Admin: 04/25/18 09:13 Dose: 1 tab Tamsulosin HCl (Flomax) 0.4 mg PO DAILY [facility] Last Admin: 04/25/18 09:14 Dose: 0.4 mg Vancomycin HCl (Vancocin (Oral/Rectal Use)) 125 mg PO Q6 [facility] PRN Reason: Protocol Last Admin: 04/25/18 21:31 Dose: 125 mg - Labs Labs: 04/24/18 05:45 04/24/18 05:45 PT 12.0 Seconds (9.8-13.1) 04/18/18 17:45 INR 1.1 (0.9-1.2) 04/18/18 17:45 APTT 27.8 Seconds (25.6-37.1) 04/18/18 17:45 Assessment and Plan (1) Wound drainage Status: Acute
[2018-04-26] MEDS: Enoxaparin 80 mg Syringe SC SCH ×2 (01:30→13:50)
[2018-04-26] MEDS: Vancomycin 500 mg (Oral/Rectal USE) PO SCH ×4 (04:57→21:54)
[2018-04-26 06:03] LABS: HEMOGLOBIN 8.6 g/dL (12.0-18.0); MEAN CELL VOLUME 91.9 fl (80.0-94.0); MEAN CORPUSCULAR HEMOGLOBIN 31.3 pg (27.0-31.0); MEAN CORPUSCULAR HGB CONC 34.1 g/dL (33.0-37.0); RBC 2.76 Mil/uL (4.40-5.90); RED CELL DISTRIBUTION WIDTH 16.4 % (11.5-14.5); WHITE BLOOD COUNT 4.6 K/uL (4.8-10.8)
[2018-04-26 06:28] LABS: BLOOD UREA NITROGEN 14 mg/dl (9-20); CALCIUM 8.1 mg/dL (8.4-10.2); GFR AFRICAN-AMERICAN > 60; GFR NON-AFRICAN AMERICAN > 60
--- NOTE | 2018-04-26 08:36 | CP.PCM.PN ---
Subjective - Date & Time of Evaluation Date of Evaluation: 04/26/18 Time of Evaluation: 07:45 - Subjective Subjective: Patient seen and examined at bedside comfortable. Pain well controlled. No new complaints or acute events overnight. Objective - Vital Signs/Intake and Output Vital Signs (last 24 hours): Temp Pulse Resp BP Pulse Ox 97.4 F L 68 20 121/64 98 04/26/18 08:30 04/26/18 08:30 04/26/18 08:30 04/26/18 08:30 04/26/18 08:30 - Medications Medications: Current Medications Acetaminophen (Tylenol 325mg Tab) 650 mg PO Q4 PRN PRN Reason: Pain, moderate (4-7) Last Admin: 04/21/18 15:31 Dose: 650 mg Carbidopa/Levodopa (Sinemet) 2 tab PO Q12 [facility] Last Admin: 04/25/18 21:34 Dose: 2 tab Enoxaparin Sodium (Lovenox) 70 mg SC Q12@0100,1300 [facility] PRN Reason: Protocol Last Admin: 04/26/18 01:30 Dose: 70 mg Ergocalciferol (Drisdol 50,000 Intl Units Cap) 1 cap PO SUN [facility] Last Admin: 04/24/18 16:47 Dose: 1 cap Ferrous Sulfate (Feosol) 325 mg PO TID [facility] Last Admin: 04/25/18 17:30 Dose: 325 mg Vancomycin HCl 1 gm/ Sodium (Chloride) 250 mls @ 166.667 mls/hr IVPB Q12 [facility] PRN Reason: Protocol Last Admin: 04/25/18 21:29 Dose: 166.667 mls/hr Lactobacillus Acidophilus (Bacid Acidophilus) 1 cap PO DAILY [facility] Last Admin: 04/25/18 09:12 Dose: 1 cap Lactulose (Enulose) 10 gm PO DAILY PRN PRN Reason: Constipation Multivitamins/Minerals (Therapeutic-M Tab) 1 tab PO DAILY [facility] Last Admin: 04/25/18 09:13 Dose: 1 tab Tamsulosin HCl (Flomax) 0.4 mg PO DAILY [facility] Last Admin: 04/25/18 09:14 Dose: 0.4 mg Vancomycin HCl (Vancocin (Oral/Rectal Use)) 125 mg PO Q6 LUCAS PRN Reason: Protocol Last Admin: 04/26/18 04:57 Dose: 125 mg - Labs Labs: 04/26/18 04:20 04/26/18 04:20 PT 12.0 Seconds (9.8-13.1) 04/18/18 17:45 INR 1.1 (0.9-1.2) 04/18/18 17:45 APTT 27.8 Seconds (25.6-37.1) 04/18/18 17:45 - Extremities Exam Additional comments: R hip: Prevena dressings intact with minimal bloody drainage mild swelling sensation intact SP/DP/TN motor intact EHL/FHL/TA/G pedal pulses intact comps soft NT Assessment and Plan (1) Wound drainage Assessment & Plan: POD# 8 s/p R revision DONELL -PREVENA dressing intact. Continue to monitor output -PT/OT -abx as per ID -orthopedically stable -above d/w Dr. Umana in agreement Status: Acute
[2018-04-26] MEDS: Lactobacillus Acidophilus 500 MU Cap PO SCH (10:07)
[2018-04-26] MEDS: Multivitamin With Minerals Tab PO SCH (10:08)
--- NOTE | 2018-04-26 10:54 | CP.PCM.PN ---
Subjective - Date & Time of Evaluation Date of Evaluation: 04/26/18 Time of Evaluation: 09:00 - Subjective Subjective: NO CHEST PAIN OR SOB Objective - Vital Signs/Intake and Output Vital Signs (last 24 hours): Temp Pulse Resp BP Pulse Ox 97.4 F L 68 20 121/64 98 04/26/18 08:30 04/26/18 08:30 04/26/18 08:30 04/26/18 08:30 04/26/18 08:30 - Medications Medications: Current Medications Acetaminophen (Tylenol 325mg Tab) 650 mg PO Q4 PRN PRN Reason: Pain, moderate (4-7) Last Admin: 04/21/18 15:31 Dose: 650 mg Carbidopa/Levodopa (Sinemet) 2 tab PO Q12 [facility] Last Admin: 04/26/18 10:08 Dose: 2 tab Enoxaparin Sodium (Lovenox) 70 mg SC Q12@0100,1300 [facility] PRN Reason: Protocol Last Admin: 04/26/18 01:30 Dose: 70 mg Ergocalciferol (Drisdol 50,000 Intl Units Cap) 1 cap PO SUN [facility] Last Admin: 04/24/18 16:47 Dose: 1 cap Ferrous Sulfate (Feosol) 325 mg PO TID [facility] Last Admin: 04/26/18 10:08 Dose: 325 mg Vancomycin HCl 1 gm/ Sodium (Chloride) 250 mls @ 166.667 mls/hr IVPB Q12 [facility] PRN Reason: Protocol Last Admin: 04/26/18 09:06 Dose: 166.667 mls/hr Lactobacillus Acidophilus (Bacid Acidophilus) 1 cap PO DAILY [facility] Last Admin: 04/26/18 10:07 Dose: 1 cap Lactulose (Enulose) 10 gm PO DAILY PRN PRN Reason: Constipation Multivitamins/Minerals (Therapeutic-M Tab) 1 tab PO DAILY [facility] Last Admin: 04/26/18 10:08 Dose: 1 tab Tamsulosin HCl (Flomax) 0.4 mg PO DAILY [facility] Last Admin: 04/26/18 10:08 Dose: 0.4 mg Vancomycin HCl (Vancocin (Oral/Rectal Use)) 125 mg PO Q6 [facility] PRN Reason: Protocol Last Admin: 04/26/18 10:07 Dose: 125 mg - Labs Labs: 04/26/18 04:20 04/26/18 04:20 PT 12.0 Seconds (9.8-13.1) 04/18/18 17:45 INR 1.1 (0.9-1.2) 04/18/18 17:45 APTT 27.8 Seconds (25.6-37.1) 04/18/18 17:45 - Respiratory Exam Respiratory Exam: Clear to Ausculation Bilateral - Cardiovascular Exam Cardiovascular Exam: REGULAR RHYTHM, +S1, +S2 Assessment and Plan - Assessment and Plan (Free Text) Assessment: S/P SURGEY FOR INFECTED RIGHT HIP Plan: CONTINUE IV ANTIBIOTICS AND LOVENOX
--- NOTE | 2018-04-26 11:04 | CP.PCM.PN ---
Subjective - Date & Time of Evaluation Date of Evaluation: 04/26/18 Time of Evaluation: 08:00 - Subjective Subjective: sanjay fever less diarrhea Objective - Vital Signs/Intake and Output Vital Signs (last 24 hours): Temp Pulse Resp BP Pulse Ox 97.4 F L 68 20 121/64 98 04/26/18 08:30 04/26/18 08:30 04/26/18 08:30 04/26/18 08:30 04/26/18 08:30 - Medications Medications: Current Medications Acetaminophen (Tylenol 325mg Tab) 650 mg PO Q4 PRN PRN Reason: Pain, moderate (4-7) Last Admin: 04/21/18 15:31 Dose: 650 mg Carbidopa/Levodopa (Sinemet) 2 tab PO Q12 [facility] Last Admin: 04/26/18 10:08 Dose: 2 tab Enoxaparin Sodium (Lovenox) 70 mg SC Q12@0100,1300 [facility] PRN Reason: Protocol Last Admin: 04/26/18 01:30 Dose: 70 mg Ergocalciferol (Drisdol 50,000 Intl Units Cap) 1 cap PO SUN [facility] Last Admin: 04/24/18 16:47 Dose: 1 cap Ferrous Sulfate (Feosol) 325 mg PO TID [facility] Last Admin: 04/26/18 10:08 Dose: 325 mg Vancomycin HCl 1 gm/ Sodium (Chloride) 250 mls @ 166.667 mls/hr IVPB Q12 [facility] PRN Reason: Protocol Last Admin: 04/26/18 09:06 Dose: 166.667 mls/hr Lactobacillus Acidophilus (Bacid Acidophilus) 1 cap PO DAILY [facility] Last Admin: 04/26/18 10:07 Dose: 1 cap Lactulose (Enulose) 10 gm PO DAILY PRN PRN Reason: Constipation Multivitamins/Minerals (Therapeutic-M Tab) 1 tab PO DAILY [facility] Last Admin: 04/26/18 10:08 Dose: 1 tab Tamsulosin HCl (Flomax) 0.4 mg PO DAILY [facility] Last Admin: 04/26/18 10:08 Dose: 0.4 mg Vancomycin HCl (Vancocin (Oral/Rectal Use)) 125 mg PO Q6 [facility] PRN Reason: Protocol Last Admin: 04/26/18 10:07 Dose: 125 mg - Labs Labs: 04/26/18 04:20 04/26/18 04:20 PT 12.0 Seconds (9.8-13.1) 04/18/18 17:45 INR 1.1 (0.9-1.2) 04/18/18 17:45 APTT 27.8 Seconds (25.6-37.1) 04/18/18 17:45 - Constitutional Appears: Non-toxic, Chronically Ill - Head Exam Head Exam: NORMOCEPHALIC - Eye Exam Pupil Exam: absent: NORMAL ACCOMODATION - ENT Exam ENT Exam: Mucous Membranes Dry - Neck Exam Neck Exam: absent: Lymphadenopathy - Respiratory Exam Respiratory Exam: Decreased Breath Sounds - Cardiovascular Exam Cardiovascular Exam: REGULAR RHYTHM - GI/Abdominal Exam GI & Abdominal Exam: Distended - Rectal Exam Rectal Exam: Deferred - Extremities Exam Extremities Exam: absent: Pedal Edema Additional comments: vac in place Assessment and Plan (1) Wound drainage Status: Acute - Assessment and Plan (Free Text) Assessment: cont iv and po vanco
[2018-04-26] MEDS: Ammonium Lactate 12% Cream (140 g) TOP SCH (19:09)
--- NOTE | 2018-04-26 19:47 | CP.PCM.PN ---
Subjective - Date & Time of Evaluation Date of Evaluation: 04/26/18 - Subjective Subjective: Less Diarrhea Objective - Vital Signs/Intake and Output Vital Signs (last 24 hours): Temp Pulse Resp BP Pulse Ox 97.6 F 62 18 117/69 96 04/26/18 16:48 04/26/18 16:48 04/26/18 16:48 04/26/18 16:48 04/26/18 16:48 Intake and Output: 04/26/18 04/27/18 18:59 06:59 Intake Total 1450 Output Total 650 Balance 800 - Medications Medications: Current Medications Acetaminophen (Tylenol 325mg Tab) 650 mg PO Q4 PRN PRN Reason: Pain, moderate (4-7) Last Admin: 04/21/18 15:31 Dose: 650 mg Carbidopa/Levodopa (Sinemet) 2 tab PO Q12 [facility] Last Admin: 04/26/18 10:08 Dose: 2 tab Enoxaparin Sodium (Lovenox) 70 mg SC Q12@0100,1300 [facility] PRN Reason: Protocol Last Admin: 04/26/18 13:50 Dose: 70 mg Ergocalciferol (Drisdol 50,000 Intl Units Cap) 1 cap PO SUN [facility] Last Admin: 04/24/18 16:47 Dose: 1 cap Ferrous Sulfate (Feosol) 325 mg PO TID [facility] Last Admin: 04/26/18 16:15 Dose: 325 mg Vancomycin HCl 1 gm/ Sodium (Chloride) 250 mls @ 166.667 mls/hr IVPB Q12 [facility] PRN Reason: Protocol Last Admin: 04/26/18 09:06 Dose: 166.667 mls/hr Lactic Acid (Lac-Hydrin 12% Cream (140 G)) 1 ea TOP BID [facility] Last Admin: 04/26/18 19:09 Dose: 1 applic Lactobacillus Acidophilus (Bacid Acidophilus) 1 cap PO DAILY [facility] Last Admin: 04/26/18 10:07 Dose: 1 cap Lactulose (Enulose) 10 gm PO DAILY PRN PRN Reason: Constipation Multivitamins/Minerals (Therapeutic-M Tab) 1 tab PO DAILY [facility] Last Admin: 04/26/18 10:08 Dose: 1 tab Tamsulosin HCl (Flomax) 0.4 mg PO DAILY [facility] Last Admin: 04/26/18 10:08 Dose: 0.4 mg Vancomycin HCl (Vancocin (Oral/Rectal Use)) 125 mg PO Q6 [facility] PRN Reason: Protocol Last Admin: 04/26/18 16:15 Dose: 125 mg - Labs Labs: 04/26/18 04:20 04/26/18 04:20 PT 12.0 Seconds (9.8-13.1) 04/18/18 17:45 INR 1.1 (0.9-1.2) 04/18/18 17:45 APTT 27.8 Seconds (25.6-37.1) 04/18/18 17:45 Assessment and Plan (1) Wound drainage Status: Acute
[2018-04-27] MEDS: Enoxaparin 80 mg Syringe SC SCH ×2 (00:10→13:21)
[2018-04-27 05:40] LABS: HEMOGLOBIN 8.6 g/dL (12.0-18.0); MEAN CELL VOLUME 92.3 fl (80.0-94.0); MEAN CORPUSCULAR HEMOGLOBIN 30.5 pg (27.0-31.0); MEAN CORPUSCULAR HGB CONC 33.1 g/dL (33.0-37.0); RBC 2.83 Mil/uL (4.40-5.90); RED CELL DISTRIBUTION WIDTH 16.3 % (11.5-14.5); WHITE BLOOD COUNT 4.9 K/uL (4.8-10.8)
[2018-04-27 05:56] LABS: BLOOD UREA NITROGEN 13 mg/dl (9-20); CALCIUM 8.3 mg/dL (8.4-10.2); GFR AFRICAN-AMERICAN > 60; GFR NON-AFRICAN AMERICAN > 60
[2018-04-27] MEDS: Vancomycin 500 mg (Oral/Rectal USE) PO SCH ×4 (05:59→22:22)
[2018-04-27] MEDS: Lactobacillus Acidophilus 500 MU Cap PO SCH (09:06)
[2018-04-27] MEDS: Multivitamin With Minerals Tab PO SCH (09:14)
--- NOTE | 2018-04-27 09:17 | CP.PCM.PN ---
Subjective - Date & Time of Evaluation Date of Evaluation: 04/27/18 Time of Evaluation: 08:40 - Subjective Subjective: NO CHEST PAIN OR SOB Objective - Vital Signs/Intake and Output Vital Signs (last 24 hours): Temp Pulse Resp BP Pulse Ox 97.9 F 62 18 110/66 96 04/27/18 07:49 04/27/18 07:49 04/27/18 07:49 04/27/18 07:49 04/27/18 07:49 - Medications Medications: Current Medications Acetaminophen (Tylenol 325mg Tab) 650 mg PO Q4 PRN PRN Reason: Pain, moderate (4-7) Last Admin: 04/21/18 15:31 Dose: 650 mg Carbidopa/Levodopa (Sinemet) 2 tab PO Q12 [facility] Last Admin: 04/26/18 21:54 Dose: 2 tab Enoxaparin Sodium (Lovenox) 70 mg SC Q12@0100,1300 [facility] PRN Reason: Protocol Last Admin: 04/27/18 00:10 Dose: 70 mg Ergocalciferol (Drisdol 50,000 Intl Units Cap) 1 cap PO SUN [facility] Last Admin: 04/24/18 16:47 Dose: 1 cap Ferrous Sulfate (Feosol) 325 mg PO TID [facility] Last Admin: 04/26/18 16:15 Dose: 325 mg Vancomycin HCl 1 gm/ Sodium (Chloride) 250 mls @ 166.667 mls/hr IVPB Q12 [facility] PRN Reason: Protocol Last Admin: 04/26/18 21:55 Dose: 166.667 mls/hr Lactic Acid (Lac-Hydrin 12% Cream (140 G)) 1 ea TOP BID [facility] Last Admin: 04/26/18 19:09 Dose: 1 applic Lactobacillus Acidophilus (Bacid Acidophilus) 1 cap PO DAILY [facility] Last Admin: 04/26/18 10:07 Dose: 1 cap Lactulose (Enulose) 10 gm PO DAILY PRN PRN Reason: Constipation Multivitamins/Minerals (Therapeutic-M Tab) 1 tab PO DAILY [facility] Last Admin: 04/26/18 10:08 Dose: 1 tab Tamsulosin HCl (Flomax) 0.4 mg PO DAILY [facility] Last Admin: 04/26/18 10:08 Dose: 0.4 mg Vancomycin HCl (Vancocin (Oral/Rectal Use)) 125 mg PO Q6 [facility] PRN Reason: Protocol Last Admin: 04/27/18 05:59 Dose: 125 mg - Labs Labs: 04/27/18 04:20 04/27/18 04:20 PT 12.0 Seconds (9.8-13.1) 04/18/18 17:45 INR 1.1 (0.9-1.2) 04/18/18 17:45 APTT 27.8 Seconds (25.6-37.1) 04/18/18 17:45 - Respiratory Exam Respiratory Exam: Clear to Ausculation Bilateral - Cardiovascular Exam Cardiovascular Exam: REGULAR RHYTHM, +S1, +S2 Assessment and Plan - Assessment and Plan (Free Text) Assessment: RIGHT HIP INFECTION PARKINSONISM Plan: CONTINUE IV ANTIBIOTICS AND LOVENOX ON TRANSFER TO REGULAR FLOOR
[2018-04-27] MEDS: Ammonium Lactate 12% Cream (140 g) TOP SCH ×2 (10:04→17:26)
--- NOTE | 2018-04-27 11:45 | CP.PCM.PN ---
Subjective - Date & Time of Evaluation Date of Evaluation: 04/27/18 Time of Evaluation: 09:00 - Subjective Subjective: less fever no diarrhea vac rx in place iv rx renewed Objective - Vital Signs/Intake and Output Vital Signs (last 24 hours): Temp Pulse Resp BP Pulse Ox 97.9 F 62 18 110/66 96 04/27/18 07:49 04/27/18 07:49 04/27/18 07:49 04/27/18 07:49 04/27/18 07:49 - Medications Medications: Current Medications Acetaminophen (Tylenol 325mg Tab) 650 mg PO Q4 PRN PRN Reason: Pain, moderate (4-7) Last Admin: 04/21/18 15:31 Dose: 650 mg Carbidopa/Levodopa (Sinemet) 2 tab PO Q12 [facility] Last Admin: 04/27/18 09:13 Dose: 2 tab Enoxaparin Sodium (Lovenox) 70 mg SC Q12@0100,1300 [facility] PRN Reason: Protocol Last Admin: 04/27/18 00:10 Dose: 70 mg Ergocalciferol (Drisdol 50,000 Intl Units Cap) 1 cap PO SUN [facility] Last Admin: 04/24/18 16:47 Dose: 1 cap Ferrous Sulfate (Feosol) 325 mg PO TID [facility] Last Admin: 04/27/18 09:14 Dose: 325 mg Vancomycin HCl 1 gm/ Sodium (Chloride) 250 mls @ 166.667 mls/hr IVPB Q12 [facility] PRN Reason: Protocol Last Admin: 04/27/18 09:06 Dose: 166.667 mls/hr Lactic Acid (Lac-Hydrin 12% Cream (140 G)) 1 ea TOP BID [facility] Last Admin: 04/27/18 10:04 Dose: 1 applic Lactobacillus Acidophilus (Bacid Acidophilus) 1 cap PO DAILY [facility] Last Admin: 04/27/18 09:06 Dose: 1 cap Lactulose (Enulose) 10 gm PO DAILY PRN PRN Reason: Constipation Multivitamins/Minerals (Therapeutic-M Tab) 1 tab PO DAILY [facility] Last Admin: 04/27/18 09:14 Dose: 1 tab Tamsulosin HCl (Flomax) 0.4 mg PO DAILY [facility] Last Admin: 04/27/18 09:14 Dose: 0.4 mg Vancomycin HCl (Vancocin (Oral/Rectal Use)) 125 mg PO Q6 [facility] PRN Reason: Protocol Last Admin: 04/27/18 10:15 Dose: 125 mg - Labs Labs: 04/27/18 04:20 04/27/18 04:20 PT 12.0 Seconds (9.8-13.1) 04/18/18 17:45 INR 1.1 (0.9-1.2) 04/18/18 17:45 APTT 27.8 Seconds (25.6-37.1) 04/18/18 17:45 - Constitutional Appears: Non-toxic, Chronically Ill - Head Exam Head Exam: NORMOCEPHALIC - Eye Exam Eye Exam: PERRL - ENT Exam ENT Exam: Mucous Membranes Dry - Neck Exam Neck Exam: absent: Lymphadenopathy - Respiratory Exam Respiratory Exam: Decreased Breath Sounds - Cardiovascular Exam Cardiovascular Exam: REGULAR RHYTHM - GI/Abdominal Exam GI & Abdominal Exam: Distended, Soft - Rectal Exam Rectal Exam: Deferred - Exam Exam: NORMAL INSPECTION Assessment and Plan (1) Wound drainage Status: Acute
--- NOTE | 2018-04-27 12:18 | CP.PCM.PN ---
Subjective - Date & Time of Evaluation Date of Evaluation: 04/27/18 Time of Evaluation: 11:30 - Subjective Subjective: Patient seen and examined OOB to chair comfortable. Pain well controlled. No new complaints. Objective - Vital Signs/Intake and Output Vital Signs (last 24 hours): Temp Pulse Resp BP Pulse Ox 97.9 F 62 18 110/66 96 04/27/18 07:49 04/27/18 07:49 04/27/18 07:49 04/27/18 07:49 04/27/18 07:49 - Medications Medications: Current Medications Acetaminophen (Tylenol 325mg Tab) 650 mg PO Q4 PRN PRN Reason: Pain, moderate (4-7) Last Admin: 04/21/18 15:31 Dose: 650 mg Carbidopa/Levodopa (Sinemet) 2 tab PO Q12 [facility] Last Admin: 04/27/18 09:13 Dose: 2 tab Enoxaparin Sodium (Lovenox) 70 mg SC Q12@0100,1300 [facility] PRN Reason: Protocol Last Admin: 04/27/18 00:10 Dose: 70 mg Ergocalciferol (Drisdol 50,000 Intl Units Cap) 1 cap PO SUN [facility] Last Admin: 04/24/18 16:47 Dose: 1 cap Ferrous Sulfate (Feosol) 325 mg PO TID [facility] Last Admin: 04/27/18 09:14 Dose: 325 mg Folic Acid (Folic Acid) 1 mg PO DAILY [facility] Vancomycin HCl 1 gm/ Sodium (Chloride) 250 mls @ 166.667 mls/hr IVPB Q12 [facility] PRN Reason: Protocol Last Admin: 04/27/18 09:06 Dose: 166.667 mls/hr Lactic Acid (Lac-Hydrin 12% Cream (140 G)) 1 ea TOP BID [facility] Last Admin: 04/27/18 10:04 Dose: 1 applic Lactobacillus Acidophilus (Bacid Acidophilus) 1 cap PO DAILY [facility] Last Admin: 04/27/18 09:06 Dose: 1 cap Multivitamins/Minerals (Therapeutic-M Tab) 1 tab PO DAILY [facility] Last Admin: 04/27/18 09:14 Dose: 1 tab Tamsulosin HCl (Flomax) 0.4 mg PO DAILY [facility] Last Admin: 04/27/18 09:14 Dose: 0.4 mg Vancomycin HCl (Vancocin (Oral/Rectal Use)) 125 mg PO Q6 [facility] PRN Reason: Protocol Last Admin: 04/27/18 10:15 Dose: 125 mg - Labs Labs: 04/27/18 04:20 04/27/18 04:20 PT 12.0 Seconds (9.8-13.1) 04/18/18 17:45 INR 1.1 (0.9-1.2) 04/18/18 17:45 APTT 27.8 Seconds (25.6-37.1) 04/18/18 17:45 - Extremities Exam Additional comments: R hip: Prevena dressings intact with moderate bloody drainage mild swelling sensation intact SP/DP/TN motor intact EHL/FHL/TA/G pedal pulses intact comps soft NT Assessment and Plan (1) Wound drainage Assessment & Plan: POD# 9 s/p R revision DONELL, C diff. infection -PREVENA dressing intact. Continue to monitor output -PT/OT 10% FF WB -abx as per ID -orthopedically stable -above d/w Dr. Umana in agreement Status: Acute
[2018-04-27] MEDS ORDERED: Oxycodone/Acetaminophen 5/325 mg Tab PO PRN (17:42)
[2018-04-28] MEDS: Enoxaparin 80 mg Syringe SC SCH (02:04)
[2018-04-28] MEDS: Vancomycin 500 mg (Oral/Rectal USE) PO SCH ×4 (04:44→21:55)
[2018-04-28 05:45] LABS: HEMOGLOBIN 8.9 g/dL (12.0-18.0); MEAN CELL VOLUME 92.5 fl (80.0-94.0); MEAN CORPUSCULAR HEMOGLOBIN 30.9 pg (27.0-31.0); MEAN CORPUSCULAR HGB CONC 33.4 g/dL (33.0-37.0); RBC 2.87 Mil/uL (4.40-5.90); RED CELL DISTRIBUTION WIDTH 16.3 % (11.5-14.5); WHITE BLOOD COUNT 4.6 K/uL (4.8-10.8)
[2018-04-28 06:03] LABS: BLOOD UREA NITROGEN 15 mg/dl (9-20); CALCIUM 8.4 mg/dL (8.4-10.2); GFR AFRICAN-AMERICAN > 60; GFR NON-AFRICAN AMERICAN > 60
--- NOTE | 2018-04-28 08:36 | CP.PCM.PN ---
Subjective - Date & Time of Evaluation Date of Evaluation: 04/28/18 Time of Evaluation: 08:00 - Subjective Subjective: NO CHEST PAIN OR SOB Objective - Vital Signs/Intake and Output Vital Signs (last 24 hours): Temp Pulse Resp BP Pulse Ox 97.4 F L 58 L 18 98/47 L 100 04/28/18 08:00 04/28/18 08:00 04/28/18 08:00 04/28/18 08:00 04/28/18 08:00 Intake and Output: 04/28/18 04/28/18 06:59 18:59 Output Total 50 Balance -50 - Medications Medications: Current Medications Acetaminophen (Tylenol 325mg Tab) 650 mg PO Q4 PRN PRN Reason: Pain, moderate (4-7) Last Admin: 04/21/18 15:31 Dose: 650 mg Carbidopa/Levodopa (Sinemet) 2 tab PO Q12 [facility] Last Admin: 04/27/18 22:22 Dose: 2 tab Enoxaparin Sodium (Lovenox) 70 mg SC Q12@0100,1300 [facility] PRN Reason: Protocol Last Admin: 04/28/18 02:04 Dose: Not Given Ergocalciferol (Drisdol 50,000 Intl Units Cap) 1 cap PO SUN [facility] Last Admin: 04/24/18 16:47 Dose: 1 cap Ferrous Sulfate (Feosol) 325 mg PO TID [facility] Last Admin: 04/27/18 17:26 Dose: 325 mg Folic Acid (Folic Acid) 1 mg PO DAILY [facility] Last Admin: 04/27/18 17:26 Dose: 1 mg Vancomycin HCl 1 gm/ Sodium (Chloride) 250 mls @ 166.667 mls/hr IVPB Q12 [facility] PRN Reason: Protocol Last Admin: 04/27/18 22:21 Dose: 166.667 mls/hr Lactic Acid (Lac-Hydrin 12% Cream (140 G)) 1 ea TOP BID [facility] Last Admin: 04/27/18 17:26 Dose: 1 applic Lactobacillus Acidophilus (Bacid Acidophilus) 1 cap PO DAILY [facility] Last Admin: 04/27/18 09:06 Dose: 1 cap Multivitamins/Minerals (Therapeutic-M Tab) 1 tab PO DAILY [facility] Last Admin: 04/27/18 09:14 Dose: 1 tab Oxycodone/Acetaminophen (Percocet 5/325 Mg Tab) 1 tab PO Q6 PRN PRN Reason: Pain, moderate (4-7) Stop: 04/30/18 17:43 Last Admin: 04/27/18 18:16 Dose: 1 tab Tamsulosin HCl (Flomax) 0.4 mg PO DAILY [facility] Last Admin: 04/27/18 09:14 Dose: 0.4 mg Vancomycin HCl (Vancocin (Oral/Rectal Use)) 125 mg PO Q6 [facility] PRN Reason: Protocol Last Admin: 04/28/18 04:44 Dose: 125 mg - Labs Labs: 04/28/18 05:33 04/28/18 05:33 PT 12.0 Seconds (9.8-13.1) 04/18/18 17:45 INR 1.1 (0.9-1.2) 04/18/18 17:45 APTT 27.8 Seconds (25.6-37.1) 04/18/18 17:45 - Respiratory Exam Respiratory Exam: Clear to Ausculation Bilateral - Cardiovascular Exam Cardiovascular Exam: REGULAR RHYTHM, +S1, +S2 Assessment and Plan - Assessment and Plan (Free Text) Assessment: S/P SURGERY FOR INFECTED RIGHT HIP PARKINSONISM Plan: CONTINUE IV ANTIBIOTICS AND LOVENOX
[2018-04-28] MEDS: Ammonium Lactate 12% Cream (140 g) TOP SCH ×2 (09:20→21:56)
[2018-04-28] MEDS: Lactobacillus Acidophilus 500 MU Cap PO SCH (09:20)
[2018-04-28] MEDS: Multivitamin With Minerals Tab PO SCH (09:20)
--- NOTE | 2018-04-28 11:53 | CP.PCM.PN ---
Subjective - Date & Time of Evaluation Date of Evaluation: 04/28/18 Time of Evaluation: 11:50 - Subjective Subjective: Patient offers no new complaints. Objective - Vital Signs/Intake and Output Vital Signs (last 24 hours): Temp Pulse Resp BP Pulse Ox 97.4 F L 58 L 18 98/47 L 100 04/28/18 08:00 04/28/18 08:00 04/28/18 08:00 04/28/18 08:00 04/28/18 08:00 Intake and Output: 04/28/18 04/28/18 06:59 18:59 Output Total 50 Balance -50 - Medications Medications: Current Medications Acetaminophen (Tylenol 325mg Tab) 650 mg PO Q4 PRN PRN Reason: Pain, moderate (4-7) Last Admin: 04/21/18 15:31 Dose: 650 mg Carbidopa/Levodopa (Sinemet) 2 tab PO Q12 [facility] Last Admin: 04/28/18 09:21 Dose: 2 tab Enoxaparin Sodium (Lovenox) 70 mg SC Q12@0100,1300 [facility] PRN Reason: Protocol Last Admin: 04/28/18 02:04 Dose: Not Given Ergocalciferol (Drisdol 50,000 Intl Units Cap) 1 cap PO SUN [facility] Last Admin: 04/24/18 16:47 Dose: 1 cap Ferrous Sulfate (Feosol) 325 mg PO TID [facility] Last Admin: 04/28/18 09:21 Dose: 325 mg Folic Acid (Folic Acid) 1 mg PO DAILY [facility] Last Admin: 04/28/18 09:20 Dose: 1 mg Vancomycin HCl 1 gm/ Sodium (Chloride) 250 mls @ 166.667 mls/hr IVPB Q12 [facility] PRN Reason: Protocol Last Admin: 04/27/18 22:21 Dose: 166.667 mls/hr Lactic Acid (Lac-Hydrin 12% Cream (140 G)) 1 ea TOP BID [facility] Last Admin: 04/28/18 09:20 Dose: 1 applic Lactobacillus Acidophilus (Bacid Acidophilus) 1 cap PO DAILY [facility] Last Admin: 04/28/18 09:20 Dose: 1 cap Multivitamins/Minerals (Therapeutic-M Tab) 1 tab PO DAILY [facility] Last Admin: 04/28/18 09:20 Dose: 1 tab Oxycodone/Acetaminophen (Percocet 5/325 Mg Tab) 1 tab PO Q6 PRN PRN Reason: Pain, moderate (4-7) Stop: 04/30/18 17:43 Last Admin: 04/27/18 18:16 Dose: 1 tab Tamsulosin HCl (Flomax) 0.4 mg PO DAILY [facility] Last Admin: 04/28/18 09:21 Dose: 0.4 mg Vancomycin HCl (Vancocin (Oral/Rectal Use)) 125 mg PO Q6 [facility] PRN Reason: Protocol Last Admin: 04/28/18 09:22 Dose: 125 mg - Labs Labs: 04/28/18 05:33 04/28/18 05:33 PT 12.0 Seconds (9.8-13.1) 04/18/18 17:45 INR 1.1 (0.9-1.2) 04/18/18 17:45 APTT 27.8 Seconds (25.6-37.1) 04/18/18 17:45 - Extremities Exam Additional comments: wound vac drainage approx 200cc overnight, dressing leaking. Resealed, actively draining dark serosang drainage. +ROM ankle/toes, sensation intact calves soft NT neg homans swlling to RLE same Assessment and Plan (1) Wound drainage Assessment & Plan: increased drainage wound vac now functioning monitor in house until drainage subsides PT/OT cultures negative d/w Dr. Umana, agrees with above Status: Acute (2) Acute blood loss anemia Assessment & Plan: stable Status: Acute (3) Vitamin D deficiency Status: Chronic
[2018-04-29] MEDS: Vancomycin 500 mg (Oral/Rectal USE) PO SCH ×4 (04:40→21:51)
[2018-04-29 06:16] LABS: HEMOGLOBIN 9.6 g/dL (12.0-18.0); MEAN CORPUSCULAR HEMOGLOBIN 30.4 pg (27.0-31.0); RBC 3.15 Mil/uL (4.40-5.90); RED CELL DISTRIBUTION WIDTH 16.5 % (11.5-14.5); WHITE BLOOD COUNT 5.4 K/uL (4.8-10.8)
[2018-04-29 06:35] LABS: BLOOD UREA NITROGEN 16 mg/dl (9-20); CALCIUM 8.4 mg/dL (8.4-10.2); GFR AFRICAN-AMERICAN > 60; GFR NON-AFRICAN AMERICAN > 60
--- NOTE | 2018-04-29 07:39 | CP.PCM.PN ---
Subjective - Date & Time of Evaluation Date of Evaluation: 04/27/18 Objective - Vital Signs/Intake and Output Vital Signs (last 24 hours): Temp Pulse Resp BP Pulse Ox 98.6 F 57 L 18 96/58 L 98 04/29/18 05:00 04/29/18 05:00 04/29/18 05:00 04/29/18 05:00 04/29/18 00:00 Intake and Output: 04/29/18 04/29/18 06:59 18:59 Intake Total 200 Balance 200 - Medications Medications: Current Medications Acetaminophen (Tylenol 325mg Tab) 650 mg PO Q4 PRN PRN Reason: Pain, moderate (4-7) Last Admin: 04/21/18 15:31 Dose: 650 mg Carbidopa/Levodopa (Sinemet) 2 tab PO Q12 [facility] Last Admin: 04/28/18 21:55 Dose: 2 tab Enoxaparin Sodium (Lovenox) 70 mg SC Q12@0100,1300 [facility] PRN Reason: Protocol Last Admin: 04/28/18 02:04 Dose: Not Given Ergocalciferol (Drisdol 50,000 Intl Units Cap) 1 cap PO SUN [facility] Last Admin: 04/24/18 16:47 Dose: 1 cap Ferrous Sulfate (Feosol) 325 mg PO TID [facility] Last Admin: 04/28/18 16:12 Dose: 325 mg Folic Acid (Folic Acid) 1 mg PO DAILY [facility] Last Admin: 04/28/18 09:20 Dose: 1 mg Vancomycin HCl 1 gm/ Sodium (Chloride) 250 mls @ 166.667 mls/hr IVPB Q12@0200, 1400 [facility] PRN Reason: Protocol Last Admin: 04/29/18 04:25 Dose: 166.667 mls/hr Lactic Acid (Lac-Hydrin 12% Cream (140 G)) 1 ea TOP BID [facility] Last Admin: 04/28/18 21:56 Dose: 1 applic Lactobacillus Acidophilus (Bacid Acidophilus) 1 cap PO DAILY [facility] Last Admin: 04/28/18 09:20 Dose: 1 cap Multivitamins/Minerals (Therapeutic-M Tab) 1 tab PO DAILY [facility] Last Admin: 04/28/18 09:20 Dose: 1 tab Oxycodone/Acetaminophen (Percocet 5/325 Mg Tab) 1 tab PO Q6 PRN PRN Reason: Pain, moderate (4-7) Stop: 04/30/18 17:43 Last Admin: 04/27/18 18:16 Dose: 1 tab Tamsulosin HCl (Flomax) 0.4 mg PO DAILY [facility] Last Admin: 04/28/18 09:21 Dose: 0.4 mg Vancomycin HCl (Vancocin (Oral/Rectal Use)) 125 mg PO Q6 [facility] PRN Reason: Protocol Last Admin: 04/29/18 04:40 Dose: 125 mg - Labs Labs: 04/29/18 06:05 04/29/18 06:05 PT 12.0 Seconds (9.8-13.1) 04/18/18 17:45 INR 1.1 (0.9-1.2) 04/18/18 17:45 APTT 27.8 Seconds (25.6-37.1) 04/18/18 17:45 Assessment and Plan (1) Wound drainage Status: Acute
--- NOTE | 2018-04-29 07:41 | CP.PCM.PN ---
Subjective - Date & Time of Evaluation Date of Evaluation: 04/28/18 Time of Evaluation: 13:20 Objective - Vital Signs/Intake and Output Vital Signs (last 24 hours): Temp Pulse Resp BP Pulse Ox 98.6 F 57 L 18 96/58 L 98 04/29/18 05:00 04/29/18 05:00 04/29/18 05:00 04/29/18 05:00 04/29/18 00:00 Intake and Output: 04/29/18 04/29/18 06:59 18:59 Intake Total 200 Balance 200 - Medications Medications: Current Medications Acetaminophen (Tylenol 325mg Tab) 650 mg PO Q4 PRN PRN Reason: Pain, moderate (4-7) Last Admin: 04/21/18 15:31 Dose: 650 mg Carbidopa/Levodopa (Sinemet) 2 tab PO Q12 [facility] Last Admin: 04/28/18 21:55 Dose: 2 tab Enoxaparin Sodium (Lovenox) 70 mg SC Q12@0100,1300 [facility] PRN Reason: Protocol Last Admin: 04/28/18 02:04 Dose: Not Given Ergocalciferol (Drisdol 50,000 Intl Units Cap) 1 cap PO SUN [facility] Last Admin: 04/24/18 16:47 Dose: 1 cap Ferrous Sulfate (Feosol) 325 mg PO TID [facility] Last Admin: 04/28/18 16:12 Dose: 325 mg Folic Acid (Folic Acid) 1 mg PO DAILY [facility] Last Admin: 04/28/18 09:20 Dose: 1 mg Vancomycin HCl 1 gm/ Sodium (Chloride) 250 mls @ 166.667 mls/hr IVPB Q12@0200, 1400 [facility] PRN Reason: Protocol Last Admin: 04/29/18 04:25 Dose: 166.667 mls/hr Lactic Acid (Lac-Hydrin 12% Cream (140 G)) 1 ea TOP BID [facility] Last Admin: 04/28/18 21:56 Dose: 1 applic Lactobacillus Acidophilus (Bacid Acidophilus) 1 cap PO DAILY [facility] Last Admin: 04/28/18 09:20 Dose: 1 cap Multivitamins/Minerals (Therapeutic-M Tab) 1 tab PO DAILY [facility] Last Admin: 04/28/18 09:20 Dose: 1 tab Oxycodone/Acetaminophen (Percocet 5/325 Mg Tab) 1 tab PO Q6 PRN PRN Reason: Pain, moderate (4-7) Stop: 04/30/18 17:43 Last Admin: 04/27/18 18:16 Dose: 1 tab Tamsulosin HCl (Flomax) 0.4 mg PO DAILY [facility] Last Admin: 04/28/18 09:21 Dose: 0.4 mg Vancomycin HCl (Vancocin (Oral/Rectal Use)) 125 mg PO Q6 [facility] PRN Reason: Protocol Last Admin: 04/29/18 04:40 Dose: 125 mg - Labs Labs: 04/29/18 06:05 04/29/18 06:05 PT 12.0 Seconds (9.8-13.1) 04/18/18 17:45 INR 1.1 (0.9-1.2) 04/18/18 17:45 APTT 27.8 Seconds (25.6-37.1) 04/18/18 17:45 Assessment and Plan (1) Wound drainage Status: Acute
[2018-04-29] MEDS: Lactobacillus Acidophilus 500 MU Cap PO SCH (08:53)
[2018-04-29] MEDS: Ammonium Lactate 12% Cream (140 g) TOP SCH ×2 (08:54→16:31)
[2018-04-29] MEDS: Multivitamin With Minerals Tab PO SCH (08:55)
--- NOTE | 2018-04-29 08:59 | CP.PCM.PN ---
Subjective - Date & Time of Evaluation Date of Evaluation: 04/29/18 Time of Evaluation: 08:30 - Subjective Subjective: NO CHEST PAIN OR SOB Objective - Vital Signs/Intake and Output Vital Signs (last 24 hours): Temp Pulse Resp BP Pulse Ox 97.7 F 73 20 113/63 98 04/29/18 07:59 04/29/18 07:59 04/29/18 07:59 04/29/18 07:59 04/29/18 07:59 Intake and Output: 04/29/18 04/29/18 06:59 18:59 Intake Total 200 575 Output Total 40 Balance 200 535 - Medications Medications: Current Medications Acetaminophen (Tylenol 325mg Tab) 650 mg PO Q4 PRN PRN Reason: Pain, moderate (4-7) Last Admin: 04/21/18 15:31 Dose: 650 mg Carbidopa/Levodopa (Sinemet) 2 tab PO Q12 [facility] Last Admin: 04/29/18 08:55 Dose: 2 tab Enoxaparin Sodium (Lovenox) 70 mg SC Q12@0100,1300 [facility] PRN Reason: Protocol Last Admin: 04/28/18 02:04 Dose: Not Given Ergocalciferol (Drisdol 50,000 Intl Units Cap) 1 cap PO SUN [facility] Last Admin: 04/24/18 16:47 Dose: 1 cap Ferrous Sulfate (Feosol) 325 mg PO TID [facility] Last Admin: 04/29/18 08:54 Dose: 325 mg Folic Acid (Folic Acid) 1 mg PO DAILY [facility] Last Admin: 04/29/18 08:54 Dose: 1 mg Vancomycin HCl 1 gm/ Sodium (Chloride) 250 mls @ 166.667 mls/hr IVPB Q12@0200, 1400 [facility] PRN Reason: Protocol Last Admin: 04/29/18 04:25 Dose: 166.667 mls/hr Lactic Acid (Lac-Hydrin 12% Cream (140 G)) 1 ea TOP BID [facility] Last Admin: 04/29/18 08:54 Dose: 1 applic Lactobacillus Acidophilus (Bacid Acidophilus) 1 cap PO DAILY [facility] Last Admin: 04/29/18 08:53 Dose: 1 cap Multivitamins/Minerals (Therapeutic-M Tab) 1 tab PO DAILY [facility] Last Admin: 04/29/18 08:55 Dose: 1 tab Oxycodone/Acetaminophen (Percocet 5/325 Mg Tab) 1 tab PO Q6 PRN PRN Reason: Pain, moderate (4-7) Stop: 04/30/18 17:43 Last Admin: 04/27/18 18:16 Dose: 1 tab Tamsulosin HCl (Flomax) 0.4 mg PO DAILY [facility] Last Admin: 04/29/18 08:55 Dose: 0.4 mg Vancomycin HCl (Vancocin (Oral/Rectal Use)) 125 mg PO Q6 [facility] PRN Reason: Protocol Last Admin: 04/29/18 04:40 Dose: 125 mg - Labs Labs: 04/29/18 06:05 04/29/18 06:05 PT 12.0 Seconds (9.8-13.1) 04/18/18 17:45 INR 1.1 (0.9-1.2) 04/18/18 17:45 APTT 27.8 Seconds (25.6-37.1) 04/18/18 17:45 - Respiratory Exam Respiratory Exam: Clear to Ausculation Bilateral - Cardiovascular Exam Cardiovascular Exam: REGULAR RHYTHM, +S1, +S2 Assessment and Plan - Assessment and Plan (Free Text) Assessment: S/P SURGERY FOR INFECTED RIGHT HIP PARKINSONISM RIGHT COMMON FEMORAL DVT Plan: CONTINUE LOVENOX AND ANTIBIOTICS AN IVC FILTER FOR DVT WAS DISCUSSED WITH THE PATIENT AND HE DECLINES ONLY WANTING ANTICOAGULATION
--- NOTE | 2018-04-29 09:34 | CP.PCM.PN ---
Subjective - Date & Time of Evaluation Date of Evaluation: 04/29/18 Time of Evaluation: 09:33 - Subjective Subjective: Patient states pain is controlled. NO new complaints. Objective - Vital Signs/Intake and Output Vital Signs (last 24 hours): Temp Pulse Resp BP Pulse Ox 97.7 F 73 20 113/63 98 04/29/18 07:59 04/29/18 07:59 04/29/18 07:59 04/29/18 07:59 04/29/18 07:59 Intake and Output: 04/29/18 04/29/18 06:59 18:59 Intake Total 200 575 Output Total 40 Balance 200 535 - Medications Medications: Current Medications Acetaminophen (Tylenol 325mg Tab) 650 mg PO Q4 PRN PRN Reason: Pain, moderate (4-7) Last Admin: 04/21/18 15:31 Dose: 650 mg Carbidopa/Levodopa (Sinemet) 2 tab PO Q12 [facility] Last Admin: 04/29/18 08:55 Dose: 2 tab Enoxaparin Sodium (Lovenox) 70 mg SC Q12@0100,1300 [facility] PRN Reason: Protocol Last Admin: 04/28/18 02:04 Dose: Not Given Ergocalciferol (Drisdol 50,000 Intl Units Cap) 1 cap PO SUN [facility] Last Admin: 04/24/18 16:47 Dose: 1 cap Ferrous Sulfate (Feosol) 325 mg PO TID [facility] Last Admin: 04/29/18 08:54 Dose: 325 mg Folic Acid (Folic Acid) 1 mg PO DAILY [facility] Last Admin: 04/29/18 08:54 Dose: 1 mg Vancomycin HCl 1 gm/ Sodium (Chloride) 250 mls @ 166.667 mls/hr IVPB Q12@0200, 1400 [facility] PRN Reason: Protocol Last Admin: 04/29/18 04:25 Dose: 166.667 mls/hr Lactic Acid (Lac-Hydrin 12% Cream (140 G)) 1 ea TOP BID [facility] Last Admin: 04/29/18 08:54 Dose: 1 applic Lactobacillus Acidophilus (Bacid Acidophilus) 1 cap PO DAILY [facility] Last Admin: 04/29/18 08:53 Dose: 1 cap Multivitamins/Minerals (Therapeutic-M Tab) 1 tab PO DAILY [facility] Last Admin: 04/29/18 08:55 Dose: 1 tab Oxycodone/Acetaminophen (Percocet 5/325 Mg Tab) 1 tab PO Q6 PRN PRN Reason: Pain, moderate (4-7) Stop: 04/30/18 17:43 Last Admin: 04/27/18 18:16 Dose: 1 tab Tamsulosin HCl (Flomax) 0.4 mg PO DAILY [facility] Last Admin: 04/29/18 08:55 Dose: 0.4 mg Vancomycin HCl (Vancocin (Oral/Rectal Use)) 125 mg PO Q6 [facility] PRN Reason: Protocol Last Admin: 04/29/18 09:17 Dose: 125 mg - Labs Labs: 04/29/18 06:05 04/29/18 06:05 PT 12.0 Seconds (9.8-13.1) 04/18/18 17:45 INR 1.1 (0.9-1.2) 04/18/18 17:45 APTT 27.8 Seconds (25.6-37.1) 04/18/18 17:45 - Extremities Exam Additional comments: 300cc in canister, changed yesterday 12pm +ROM ankle/toes, sensation intact +DP/PT pulses calves soft NT neg homans RLE swelling stable Assessment and Plan (1) Postoperative wound infection Assessment & Plan: increased drainage continue wound vac monitor in house until drainage subsides PT/OT cultures negative d/w Dr. Umana, agrees with above Status: Acute (2) Acute blood loss anemia Status: Acute (3) Vitamin D deficiency Status: Chronic
--- NOTE | 2018-04-29 14:27 | CP.PCM.PN ---
Subjective - Date & Time of Evaluation Date of Evaluation: 04/29/18 Time of Evaluation: 08:00 - Subjective Subjective: IMOPROVING Objective - Vital Signs/Intake and Output Vital Signs (last 24 hours): Temp Pulse Resp BP Pulse Ox 97.7 F 73 20 113/63 98 04/29/18 07:59 04/29/18 07:59 04/29/18 07:59 04/29/18 07:59 04/29/18 07:59 Intake and Output: 04/29/18 04/29/18 06:59 18:59 Intake Total 200 575 Output Total 40 Balance 200 535 - Medications Medications: Current Medications Acetaminophen (Tylenol 325mg Tab) 650 mg PO Q4 PRN PRN Reason: Pain, moderate (4-7) Last Admin: 04/21/18 15:31 Dose: 650 mg Carbidopa/Levodopa (Sinemet) 2 tab PO Q12 [facility] Last Admin: 04/29/18 08:55 Dose: 2 tab Enoxaparin Sodium (Lovenox) 70 mg SC Q12@0100,1300 [facility] PRN Reason: Protocol Last Admin: 04/28/18 02:04 Dose: Not Given Ergocalciferol (Drisdol 50,000 Intl Units Cap) 1 cap PO SUN [facility] Last Admin: 04/24/18 16:47 Dose: 1 cap Ferrous Sulfate (Feosol) 325 mg PO TID [facility] Last Admin: 04/29/18 12:57 Dose: 325 mg Folic Acid (Folic Acid) 1 mg PO DAILY [facility] Last Admin: 04/29/18 08:54 Dose: 1 mg Vancomycin HCl 1 gm/ Sodium (Chloride) 250 mls @ 166.667 mls/hr IVPB Q12@0200, 1400 [facility] PRN Reason: Protocol Last Admin: 04/29/18 04:25 Dose: 166.667 mls/hr Lactic Acid (Lac-Hydrin 12% Cream (140 G)) 1 ea TOP BID [facility] Last Admin: 04/29/18 08:54 Dose: 1 applic Lactobacillus Acidophilus (Bacid Acidophilus) 1 cap PO DAILY [facility] Last Admin: 04/29/18 08:53 Dose: 1 cap Multivitamins/Minerals (Therapeutic-M Tab) 1 tab PO DAILY [facility] Last Admin: 04/29/18 08:55 Dose: 1 tab Oxycodone/Acetaminophen (Percocet 5/325 Mg Tab) 1 tab PO Q6 PRN PRN Reason: Pain, moderate (4-7) Stop: 04/30/18 17:43 Last Admin: 04/27/18 18:16 Dose: 1 tab Tamsulosin HCl (Flomax) 0.4 mg PO DAILY [facility] Last Admin: 04/29/18 08:55 Dose: 0.4 mg Vancomycin HCl (Vancocin (Oral/Rectal Use)) 125 mg PO Q6 [facility] PRN Reason: Protocol Last Admin: 04/29/18 09:17 Dose: 125 mg - Labs Labs: 04/29/18 06:05 04/29/18 06:05 PT 12.0 Seconds (9.8-13.1) 04/18/18 17:45 INR 1.1 (0.9-1.2) 04/18/18 17:45 APTT 27.8 Seconds (25.6-37.1) 04/18/18 17:45 - Constitutional Appears: Non-toxic - Head Exam Head Exam: NORMOCEPHALIC - Eye Exam Eye Exam: PERRL - ENT Exam ENT Exam: Mucous Membranes Dry - Neck Exam Neck Exam: absent: Lymphadenopathy - Respiratory Exam Respiratory Exam: Decreased Breath Sounds - Cardiovascular Exam Cardiovascular Exam: REGULAR RHYTHM - GI/Abdominal Exam GI & Abdominal Exam: Distended - Rectal Exam Rectal Exam: Deferred Assessment and Plan (1) Wound drainage Status: Acute - Assessment and Plan (Free Text) Assessment: RENEW IV VANCO
--- NOTE | 2018-04-29 18:39 | CP.PCM.PN ---
Subjective - Date & Time of Evaluation Date of Evaluation: 04/29/18 Time of Evaluation: 18:35 Objective - Vital Signs/Intake and Output Vital Signs (last 24 hours): Temp Pulse Resp BP Pulse Ox 98.5 F 63 20 109/63 99 04/29/18 16:05 04/29/18 16:05 04/29/18 16:05 04/29/18 16:05 04/29/18 16:05 Intake and Output: 04/29/18 04/29/18 06:59 18:59 Intake Total 200 575 Output Total 40 Balance 200 535 - Medications Medications: Current Medications Acetaminophen (Tylenol 325mg Tab) 650 mg PO Q4 PRN PRN Reason: Pain, moderate (4-7) Last Admin: 04/21/18 15:31 Dose: 650 mg Carbidopa/Levodopa (Sinemet) 2 tab PO Q12 [facility] Last Admin: 04/29/18 08:55 Dose: 2 tab Enoxaparin Sodium (Lovenox) 70 mg SC Q12@0100,1300 [facility] PRN Reason: Protocol Last Admin: 04/28/18 02:04 Dose: Not Given Ergocalciferol (Drisdol 50,000 Intl Units Cap) 1 cap PO SUN [facility] Last Admin: 04/24/18 16:47 Dose: 1 cap Ferrous Sulfate (Feosol) 325 mg PO TID [facility] Last Admin: 04/29/18 16:31 Dose: 325 mg Folic Acid (Folic Acid) 1 mg PO DAILY [facility] Last Admin: 04/29/18 08:54 Dose: 1 mg Vancomycin HCl 1 gm/ Sodium (Chloride) 250 mls @ 166.667 mls/hr IVPB Q12@0200, 1400 [facility] PRN Reason: Protocol Last Admin: 04/29/18 14:00 Dose: 166.667 mls/hr Lactic Acid (Lac-Hydrin 12% Cream (140 G)) 1 ea TOP BID [facility] Last Admin: 04/29/18 16:31 Dose: 1 applic Lactobacillus Acidophilus (Bacid Acidophilus) 1 cap PO DAILY [facility] Last Admin: 04/29/18 08:53 Dose: 1 cap Multivitamins/Minerals (Therapeutic-M Tab) 1 tab PO DAILY [facility] Last Admin: 04/29/18 08:55 Dose: 1 tab Oxycodone/Acetaminophen (Percocet 5/325 Mg Tab) 1 tab PO Q6 PRN PRN Reason: Pain, moderate (4-7) Stop: 04/30/18 17:43 Last Admin: 04/27/18 18:16 Dose: 1 tab Tamsulosin HCl (Flomax) 0.4 mg PO DAILY [facility] Last Admin: 04/29/18 08:55 Dose: 0.4 mg Vancomycin HCl (Vancocin (Oral/Rectal Use)) 125 mg PO Q6 [facility] PRN Reason: Protocol Last Admin: 04/29/18 16:31 Dose: 125 mg - Labs Labs: 04/29/18 06:05 04/29/18 06:05 PT 12.0 Seconds (9.8-13.1) 04/18/18 17:45 INR 1.1 (0.9-1.2) 04/18/18 17:45 APTT 27.8 Seconds (25.6-37.1) 04/18/18 17:45 Assessment and Plan (1) Wound drainage Status: Acute
[2018-04-30] MEDS: Vancomycin 500 mg (Oral/Rectal USE) PO SCH ×4 (04:44→21:53)
[2018-04-30] MEDS: Ammonium Lactate 12% Cream (140 g) TOP SCH ×2 (08:35→16:20)
[2018-04-30] MEDS: Multivitamin With Minerals Tab PO SCH (08:35)
[2018-04-30] MEDS: Lactobacillus Acidophilus 500 MU Cap PO SCH (08:35)
[2018-05-01] MEDS: Vancomycin 500 mg (Oral/Rectal USE) PO SCH ×4 (04:18→21:06)
[2018-05-01] MEDS: Ammonium Lactate 12% Cream (140 g) TOP SCH ×2 (08:43→16:11)
[2018-05-01] MEDS: Lactobacillus Acidophilus 500 MU Cap PO SCH (08:43)
[2018-05-01] MEDS: Ergocalciferol 50,000 Intl Units Cap PO SCH (08:44)
[2018-05-01] MEDS: Multivitamin With Minerals Tab PO SCH (08:44)
--- NOTE | 2018-05-01 12:30 | CP.PCM.PN ---
Subjective - Date & Time of Evaluation Date of Evaluation: 05/01/18 Time of Evaluation: 08:00 - Subjective Subjective: no fever or diarrhea Objective - Vital Signs/Intake and Output Vital Signs (last 24 hours): Temp Pulse Resp BP Pulse Ox 97.6 F 80 20 114/65 96 05/01/18 09:00 05/01/18 09:00 05/01/18 09:00 05/01/18 09:00 05/01/18 09:00 Intake and Output: 05/01/18 05/01/18 06:59 18:59 Intake Total 120 375 Output Total 300 400 Balance -180 -25 - Medications Medications: Current Medications Acetaminophen (Tylenol 325mg Tab) 650 mg PO Q4 PRN PRN Reason: Pain, moderate (4-7) Last Admin: 05/01/18 01:52 Dose: 650 mg Carbidopa/Levodopa (Sinemet) 2 tab PO Q12 [facility] Last Admin: 05/01/18 10:16 Dose: 2 tab Enoxaparin Sodium (Lovenox) 70 mg SC Q12@0100,1300 [facility] PRN Reason: Protocol Last Admin: 04/28/18 02:04 Dose: Not Given Ergocalciferol (Drisdol 50,000 Intl Units Cap) 1 cap PO SUN [facility] Last Admin: 05/01/18 08:44 Dose: 1 cap Ferrous Sulfate (Feosol) 325 mg PO TID [facility] Last Admin: 05/01/18 08:44 Dose: 325 mg Folic Acid (Folic Acid) 1 mg PO DAILY [facility] Last Admin: 05/01/18 08:44 Dose: 1 mg Vancomycin HCl 1 gm/ Sodium (Chloride) 250 mls @ 166.667 mls/hr IVPB Q12@0200, 1400 [facility] PRN Reason: Protocol Last Admin: 05/01/18 01:46 Dose: 166.667 mls/hr Lactic Acid (Lac-Hydrin 12% Cream (140 G)) 1 ea TOP BID [facility] Last Admin: 05/01/18 08:43 Dose: 1 applic Lactobacillus Acidophilus (Bacid Acidophilus) 1 cap PO DAILY [facility] Last Admin: 05/01/18 08:43 Dose: 1 cap Multivitamins/Minerals (Therapeutic-M Tab) 1 tab PO DAILY [facility] Last Admin: 05/01/18 08:44 Dose: 1 tab Tamsulosin HCl (Flomax) 0.4 mg PO DAILY [facility] Last Admin: 05/01/18 08:44 Dose: 0.4 mg Vancomycin HCl (Vancocin (Oral/Rectal Use)) 125 mg PO Q6 [facility] PRN Reason: Protocol Last Admin: 05/01/18 10:16 Dose: 125 mg - Labs Labs: 04/29/18 06:05 04/29/18 06:05 PT 12.0 Seconds (9.8-13.1) 04/18/18 17:45 INR 1.1 (0.9-1.2) 04/18/18 17:45 APTT 27.8 Seconds (25.6-37.1) 04/18/18 17:45 - Constitutional Appears: Non-toxic, Chronically Ill - Head Exam Head Exam: NORMOCEPHALIC - Eye Exam Eye Exam: absent: Scleral icterus - ENT Exam ENT Exam: Mucous Membranes Dry - Neck Exam Neck Exam: absent: Lymphadenopathy - Respiratory Exam Respiratory Exam: Decreased Breath Sounds - Cardiovascular Exam Cardiovascular Exam: REGULAR RHYTHM - GI/Abdominal Exam GI & Abdominal Exam: Distended - Rectal Exam Rectal Exam: Deferred - Exam Exam: NORMAL INSPECTION - Extremities Exam Extremities Exam: Pedal Edema. absent: Calf Tenderness, Tenderness - Back Exam Back Exam: absent: CVA tenderness (L), CVA tenderness (R) - Neurological Exam Neurological Exam: Alert, Awake, CN II-XII Intact - Psychiatric Exam Psychiatric exam: Depressed - Skin Skin Exam: Dry Assessment and Plan (1) Wound drainage Status: Acute - Assessment and Plan (Free Text) Assessment: s/p DVT right leg post op wound infection s/p right THR IV Vanco and PO vanco in progress s/p washout and vac placement
--- NOTE | 2018-05-01 19:36 | CP.PCM.PN ---
Subjective - Date & Time of Evaluation Date of Evaluation: 04/30/18 Time of Evaluation: 17:15 Objective - Vital Signs/Intake and Output Vital Signs (last 24 hours): Temp Pulse Resp BP Pulse Ox 98.5 F 69 20 101/59 L 100 05/01/18 17:00 05/01/18 17:00 05/01/18 17:00 05/01/18 17:00 05/01/18 17:00 Intake and Output: 05/01/18 05/02/18 18:59 06:59 Intake Total 375 Output Total 400 Balance -25 - Medications Medications: Current Medications Acetaminophen (Tylenol 325mg Tab) 650 mg PO Q4 PRN PRN Reason: Pain, moderate (4-7) Last Admin: 05/01/18 01:52 Dose: 650 mg Carbidopa/Levodopa (Sinemet) 2 tab PO Q12 [facility] Last Admin: 05/01/18 10:16 Dose: 2 tab Enoxaparin Sodium (Lovenox) 70 mg SC Q12@0100,1300 [facility] PRN Reason: Protocol Last Admin: 04/28/18 02:04 Dose: Not Given Ergocalciferol (Drisdol 50,000 Intl Units Cap) 1 cap PO SUN [facility] Last Admin: 05/01/18 08:44 Dose: 1 cap Ferrous Sulfate (Feosol) 325 mg PO TID [facility] Last Admin: 05/01/18 16:10 Dose: 325 mg Folic Acid (Folic Acid) 1 mg PO DAILY [facility] Last Admin: 05/01/18 08:44 Dose: 1 mg Vancomycin HCl 1 gm/ Sodium (Chloride) 250 mls @ 166.667 mls/hr IVPB Q12@0200, 1400 [facility] PRN Reason: Protocol Last Admin: 05/01/18 13:04 Dose: 166.667 mls/hr Lactic Acid (Lac-Hydrin 12% Cream (140 G)) 1 ea TOP BID [facility] Last Admin: 05/01/18 16:11 Dose: 1 applic Lactobacillus Acidophilus (Bacid Acidophilus) 1 cap PO DAILY [facility] Last Admin: 05/01/18 08:43 Dose: 1 cap Multivitamins/Minerals (Therapeutic-M Tab) 1 tab PO DAILY [facility] Last Admin: 05/01/18 08:44 Dose: 1 tab Tamsulosin HCl (Flomax) 0.4 mg PO DAILY [facility] Last Admin: 05/01/18 08:44 Dose: 0.4 mg Vancomycin HCl (Vancocin (Oral/Rectal Use)) 125 mg PO Q6 [facility] PRN Reason: Protocol Last Admin: 05/01/18 16:11 Dose: 125 mg - Labs Labs: 04/29/18 06:05 04/29/18 06:05 PT 12.0 Seconds (9.8-13.1) 04/18/18 17:45 INR 1.1 (0.9-1.2) 04/18/18 17:45 APTT 27.8 Seconds (25.6-37.1) 04/18/18 17:45 Assessment and Plan (1) Wound drainage Status: Acute
--- NOTE | 2018-05-01 19:37 | CP.PCM.PN ---
Subjective - Date & Time of Evaluation Date of Evaluation: 05/01/18 Time of Evaluation: 13:10 Objective - Vital Signs/Intake and Output Vital Signs (last 24 hours): Temp Pulse Resp BP Pulse Ox 98.5 F 69 20 101/59 L 100 05/01/18 17:00 05/01/18 17:00 05/01/18 17:00 05/01/18 17:00 05/01/18 17:00 Intake and Output: 05/01/18 05/02/18 18:59 06:59 Intake Total 375 Output Total 400 Balance -25 - Medications Medications: Current Medications Acetaminophen (Tylenol 325mg Tab) 650 mg PO Q4 PRN PRN Reason: Pain, moderate (4-7) Last Admin: 05/01/18 01:52 Dose: 650 mg Carbidopa/Levodopa (Sinemet) 2 tab PO Q12 [facility] Last Admin: 05/01/18 10:16 Dose: 2 tab Enoxaparin Sodium (Lovenox) 70 mg SC Q12@0100,1300 [facility] PRN Reason: Protocol Last Admin: 04/28/18 02:04 Dose: Not Given Ergocalciferol (Drisdol 50,000 Intl Units Cap) 1 cap PO SUN [facility] Last Admin: 05/01/18 08:44 Dose: 1 cap Ferrous Sulfate (Feosol) 325 mg PO TID [facility] Last Admin: 05/01/18 16:10 Dose: 325 mg Folic Acid (Folic Acid) 1 mg PO DAILY [facility] Last Admin: 05/01/18 08:44 Dose: 1 mg Vancomycin HCl 1 gm/ Sodium (Chloride) 250 mls @ 166.667 mls/hr IVPB Q12@0200, 1400 [facility] PRN Reason: Protocol Last Admin: 05/01/18 13:04 Dose: 166.667 mls/hr Lactic Acid (Lac-Hydrin 12% Cream (140 G)) 1 ea TOP BID [facility] Last Admin: 05/01/18 16:11 Dose: 1 applic Lactobacillus Acidophilus (Bacid Acidophilus) 1 cap PO DAILY [facility] Last Admin: 05/01/18 08:43 Dose: 1 cap Multivitamins/Minerals (Therapeutic-M Tab) 1 tab PO DAILY [facility] Last Admin: 05/01/18 08:44 Dose: 1 tab Tamsulosin HCl (Flomax) 0.4 mg PO DAILY [facility] Last Admin: 05/01/18 08:44 Dose: 0.4 mg Vancomycin HCl (Vancocin (Oral/Rectal Use)) 125 mg PO Q6 [facility] PRN Reason: Protocol Last Admin: 05/01/18 16:11 Dose: 125 mg - Labs Labs: 04/29/18 06:05 04/29/18 06:05 PT 12.0 Seconds (9.8-13.1) 04/18/18 17:45 INR 1.1 (0.9-1.2) 04/18/18 17:45 APTT 27.8 Seconds (25.6-37.1) 04/18/18 17:45 Assessment and Plan (1) Wound drainage Status: Acute
[2018-05-02] MEDS: Vancomycin 500 mg (Oral/Rectal USE) PO SCH ×4 (03:04→21:09)
[2018-05-02 06:32] LABS: BASO # 0.1 K/uL (0.0-0.2); BASO % 0.8 % (0.0-2.0); EOS # 0.5 K/uL (0.0-0.7); EOS % 6.3 % (0.0-4.0); HEMOGLOBIN 9.7 g/dL (12.0-18.0); LYMPH # 1.3 K/uL (1.0-4.3); LYMPH % 17.6 % (20.0-40.0); MEAN CELL VOLUME 92.2 fl (80.0-94.0); MEAN CORPUSCULAR HEMOGLOBIN 31.1 pg (27.0-31.0); MEAN CORPUSCULAR HGB CONC 33.7 g/dL (33.0-37.0); MONO # 0.7 K/uL (0.0-0.8); MONO % 9.3 % (0.0-10.0); RBC 3.13 Mil/uL (4.40-5.90); RED CELL DISTRIBUTION WIDTH 16.5 % (11.5-14.5); WHITE BLOOD COUNT 7.6 K/uL (4.8-10.8)
[2018-05-02 07:00] LABS: ALBUMIN 2.8 g/dL (3.5-5.0); ALT/SGPT 23 U/L (21-72); AST/SGOT 16 U/L (17-59); BLOOD UREA NITROGEN 15 mg/dl (9-20); CALCIUM 8.4 mg/dL (8.4-10.2); GFR AFRICAN-AMERICAN > 60; GFR NON-AFRICAN AMERICAN > 60
--- NOTE | 2018-05-02 09:16 | CP.PCM.PN ---
Subjective - Date & Time of Evaluation Date of Evaluation: 05/02/18 Time of Evaluation: 07:45 - Subjective Subjective: Patient seen and examined at bedside comfortable. Pain well controlled. Diarrhea has resolved. No new complaints. Objective - Vital Signs/Intake and Output Vital Signs (last 24 hours): Temp Pulse Resp BP Pulse Ox 97.6 F 69 20 112/63 97 05/02/18 09:00 05/02/18 09:00 05/02/18 09:00 05/02/18 09:00 05/02/18 09:00 - Medications Medications: Current Medications Acetaminophen (Tylenol 325mg Tab) 650 mg PO Q4 PRN PRN Reason: Pain, moderate (4-7) Last Admin: 05/01/18 23:17 Dose: 650 mg Carbidopa/Levodopa (Sinemet) 2 tab PO Q12 [facility] Last Admin: 05/01/18 20:44 Dose: 2 tab Enoxaparin Sodium (Lovenox) 70 mg SC Q12@0100,1300 [facility] PRN Reason: Protocol Last Admin: 04/28/18 02:04 Dose: Not Given Ergocalciferol (Drisdol 50,000 Intl Units Cap) 1 cap PO SUN [facility] Last Admin: 05/01/18 08:44 Dose: 1 cap Ferrous Sulfate (Feosol) 325 mg PO TID [facility] Last Admin: 05/01/18 16:10 Dose: 325 mg Folic Acid (Folic Acid) 1 mg PO DAILY [facility] Last Admin: 05/01/18 08:44 Dose: 1 mg Vancomycin HCl 1 gm/ Sodium (Chloride) 250 mls @ 166.667 mls/hr IVPB Q12@0200, 1400 [facility] PRN Reason: Protocol Last Admin: 05/02/18 01:39 Dose: 166.667 mls/hr Lactic Acid (Lac-Hydrin 12% Cream (140 G)) 1 ea TOP BID [facility] Last Admin: 05/01/18 16:11 Dose: 1 applic Lactobacillus Acidophilus (Bacid Acidophilus) 1 cap PO DAILY [facility] Last Admin: 05/01/18 08:43 Dose: 1 cap Multivitamins/Minerals (Therapeutic-M Tab) 1 tab PO DAILY [facility] Last Admin: 05/01/18 08:44 Dose: 1 tab Tamsulosin HCl (Flomax) 0.4 mg PO DAILY [facility] Last Admin: 05/01/18 08:44 Dose: 0.4 mg Vancomycin HCl (Vancocin (Oral/Rectal Use)) 125 mg PO Q6 [facility] PRN Reason: Protocol Last Admin: 05/02/18 03:04 Dose: 125 mg - Labs Labs: 05/02/18 05:00 05/02/18 05:00 PT 12.0 Seconds (9.8-13.1) 04/18/18 17:45 INR 1.1 (0.9-1.2) 04/18/18 17:45 APTT 27.8 Seconds (25.6-37.1) 04/18/18 17:45 - Extremities Exam Additional comments: R hip: Prevena dressings intact with mild bloody drainage, prevena removed revealing wound intact with minimal serous drainage proximal wound mild swelling continues to improve sensation intact SP/DP/TN motor intact EHL/FHL/TA/G pedal pulses intact comps soft NT Assessment and Plan (1) History of revision of total replacement of right hip joint Assessment & Plan: POD# 13 s/p R revision DONELL, C diff. infection improving -PREVENA dressing intact. Removed today -applied wet to dry betadine dressings to be changed daily -PT/OT 10% FF WB -abx as per ID -DVT treatment as per medicine -orthopedically stable -above d/w Dr. Umana in agreement Status: Acute
[2018-05-02] MEDS ORDERED: Povidone Iodine Topical 10% Sol ONE (09:29)
[2018-05-02] MEDS: Lactobacillus Acidophilus 500 MU Cap PO SCH (09:34)
[2018-05-02] MEDS: Ammonium Lactate 12% Cream (140 g) TOP SCH ×2 (09:35→16:00)
[2018-05-02] MEDS: Multivitamin With Minerals Tab PO SCH (09:37)
--- NOTE | 2018-05-02 11:15 | CP.PCM.PN ---
Subjective - Date & Time of Evaluation Date of Evaluation: 05/02/18 Time of Evaluation: 07:00 - Subjective Subjective: IV rx in progress awake alert denies diarrhea Objective - Vital Signs/Intake and Output Vital Signs (last 24 hours): Temp Pulse Resp BP Pulse Ox 97.6 F 69 20 112/63 97 05/02/18 09:00 05/02/18 09:00 05/02/18 09:00 05/02/18 09:00 05/02/18 09:00 - Medications Medications: Current Medications Acetaminophen (Tylenol 325mg Tab) 650 mg PO Q4 PRN PRN Reason: Pain, moderate (4-7) Last Admin: 05/01/18 23:17 Dose: 650 mg Carbidopa/Levodopa (Sinemet) 2 tab PO Q12 [facility] Last Admin: 05/02/18 09:42 Dose: 2 tab Enoxaparin Sodium (Lovenox) 70 mg SC Q12@0100,1300 [facility] PRN Reason: Protocol Last Admin: 04/28/18 02:04 Dose: Not Given Ergocalciferol (Drisdol 50,000 Intl Units Cap) 1 cap PO SUN [facility] Last Admin: 05/01/18 08:44 Dose: 1 cap Ferrous Sulfate (Feosol) 325 mg PO TID [facility] Last Admin: 05/02/18 09:34 Dose: 325 mg Folic Acid (Folic Acid) 1 mg PO DAILY [facility] Last Admin: 05/02/18 09:35 Dose: 1 mg Vancomycin HCl 1 gm/ Sodium (Chloride) 250 mls @ 166.667 mls/hr IVPB Q12@0200, 1400 [facility] PRN Reason: Protocol Last Admin: 05/02/18 01:39 Dose: 166.667 mls/hr Lactic Acid (Lac-Hydrin 12% Cream (140 G)) 1 ea TOP BID [facility] Last Admin: 05/02/18 09:35 Dose: 1 applic Lactobacillus Acidophilus (Bacid Acidophilus) 1 cap PO DAILY [facility] Last Admin: 05/02/18 09:34 Dose: 1 cap Multivitamins/Minerals (Therapeutic-M Tab) 1 tab PO DAILY [facility] Last Admin: 05/02/18 09:37 Dose: 1 tab Tamsulosin HCl (Flomax) 0.4 mg PO DAILY [facility] Last Admin: 05/02/18 09:35 Dose: 0.4 mg Vancomycin HCl (Vancocin (Oral/Rectal Use)) 125 mg PO Q6 [facility] PRN Reason: Protocol Last Admin: 05/02/18 09:37 Dose: 125 mg - Labs Labs: 05/02/18 05:00 05/02/18 05:00 PT 12.0 Seconds (9.8-13.1) 04/18/18 17:45 INR 1.1 (0.9-1.2) 04/18/18 17:45 APTT 27.8 Seconds (25.6-37.1) 04/18/18 17:45 - Constitutional Appears: Non-toxic, Chronically Ill - Head Exam Head Exam: NORMOCEPHALIC - Eye Exam Eye Exam: PERRL - ENT Exam ENT Exam: Mucous Membranes Dry - Neck Exam Neck Exam: absent: Lymphadenopathy - Respiratory Exam Respiratory Exam: Decreased Breath Sounds - Cardiovascular Exam Cardiovascular Exam: REGULAR RHYTHM - GI/Abdominal Exam GI & Abdominal Exam: Distended, Soft Assessment and Plan (1) Wound drainage Status: Acute - Assessment and Plan (Free Text) Assessment: iv rx ordered
[2018-05-02] MEDS: Enoxaparin 80 mg Syringe SC SCH (15:54)
--- NOTE | 2018-05-02 16:18 | CP.PCM.PN ---
Subjective - Date & Time of Evaluation Date of Evaluation: 05/02/18 Time of Evaluation: 08:30 - Subjective Subjective: NO CHEST PAIN OR SOB Objective - Vital Signs/Intake and Output Vital Signs (last 24 hours): Temp Pulse Resp BP Pulse Ox 97.7 F 78 19 103/62 96 05/02/18 15:44 05/02/18 15:44 05/02/18 15:44 05/02/18 15:44 05/02/18 15:44 - Medications Medications: Current Medications Acetaminophen (Tylenol 325mg Tab) 650 mg PO Q4 PRN PRN Reason: Pain, moderate (4-7) Last Admin: 05/01/18 23:17 Dose: 650 mg Carbidopa/Levodopa (Sinemet) 2 tab PO Q12 [facility] Last Admin: 05/02/18 09:42 Dose: 2 tab Enoxaparin Sodium (Lovenox) 70 mg SC Q12@0100,1300 [facility] PRN Reason: Protocol Last Admin: 05/02/18 15:54 Dose: 70 mg Ergocalciferol (Drisdol 50,000 Intl Units Cap) 1 cap PO SUN [facility] Last Admin: 05/01/18 08:44 Dose: 1 cap Ferrous Sulfate (Feosol) 325 mg PO TID [facility] Last Admin: 05/02/18 16:00 Dose: 325 mg Folic Acid (Folic Acid) 1 mg PO DAILY [facility] Last Admin: 05/02/18 09:35 Dose: 1 mg Vancomycin HCl 1 gm/ Sodium (Chloride) 250 mls @ 166.667 mls/hr IVPB Q12@0200, 1400 [facility] PRN Reason: Protocol Last Admin: 05/02/18 13:12 Dose: 166.667 mls/hr Lactic Acid (Lac-Hydrin 12% Cream (140 G)) 1 ea TOP BID [facility] Last Admin: 05/02/18 16:00 Dose: 1 applic Lactobacillus Acidophilus (Bacid Acidophilus) 1 cap PO DAILY [facility] Last Admin: 05/02/18 09:34 Dose: 1 cap Multivitamins/Minerals (Therapeutic-M Tab) 1 tab PO DAILY [facility] Last Admin: 05/02/18 09:37 Dose: 1 tab Tamsulosin HCl (Flomax) 0.4 mg PO DAILY [facility] Last Admin: 05/02/18 09:35 Dose: 0.4 mg Vancomycin HCl (Vancocin (Oral/Rectal Use)) 125 mg PO Q6 [facility] PRN Reason: Protocol Last Admin: 05/02/18 16:00 Dose: 125 mg - Labs Labs: 05/02/18 05:00 05/02/18 05:00 PT 12.0 Seconds (9.8-13.1) 04/18/18 17:45 INR 1.1 (0.9-1.2) 04/18/18 17:45 APTT 27.8 Seconds (25.6-37.1) 04/18/18 17:45 - Respiratory Exam Respiratory Exam: Clear to Ausculation Bilateral - Cardiovascular Exam Cardiovascular Exam: REGULAR RHYTHM, +S1, +S2 - Extremities Exam Extremities Exam: Pedal Edema Assessment and Plan - Assessment and Plan (Free Text) Assessment: S/P RIGHT HIP SURGERY FOR INFECTION RLE DVY PARKINSONISM Plan: CONTINUE IV ANTIBIOTICS AND LOVENOX
--- NOTE | 2018-05-02 23:58 | CP.PCM.PN ---
Subjective - Date & Time of Evaluation Date of Evaluation: 05/02/18 Time of Evaluation: 13:30 Objective - Vital Signs/Intake and Output Vital Signs (last 24 hours): Temp Pulse Resp BP Pulse Ox 97.7 F 78 19 103/62 96 05/02/18 15:44 05/02/18 15:44 05/02/18 15:44 05/02/18 15:44 05/02/18 15:44 - Medications Medications: Current Medications Acetaminophen (Tylenol 325mg Tab) 650 mg PO Q4 PRN PRN Reason: Pain, moderate (4-7) Last Admin: 05/02/18 20:59 Dose: 650 mg Carbidopa/Levodopa (Sinemet) 2 tab PO Q12 [facility] Last Admin: 05/02/18 20:50 Dose: 2 tab Enoxaparin Sodium (Lovenox) 70 mg SC Q12@0100,1300 [facility] PRN Reason: Protocol Last Admin: 05/02/18 15:54 Dose: 70 mg Ergocalciferol (Drisdol 50,000 Intl Units Cap) 1 cap PO SUN [facility] Last Admin: 05/01/18 08:44 Dose: 1 cap Ferrous Sulfate (Feosol) 325 mg PO TID [facility] Last Admin: 05/02/18 16:00 Dose: 325 mg Folic Acid (Folic Acid) 1 mg PO DAILY [facility] Last Admin: 05/02/18 09:35 Dose: 1 mg Vancomycin HCl 1 gm/ Sodium (Chloride) 250 mls @ 166.667 mls/hr IVPB Q12@0200, 1400 [facility] PRN Reason: Protocol Last Admin: 05/02/18 13:12 Dose: 166.667 mls/hr Lactic Acid (Lac-Hydrin 12% Cream (140 G)) 1 ea TOP BID [facility] Last Admin: 05/02/18 16:00 Dose: 1 applic Lactobacillus Acidophilus (Bacid Acidophilus) 1 cap PO DAILY [facility] Last Admin: 05/02/18 09:34 Dose: 1 cap Multivitamins/Minerals (Therapeutic-M Tab) 1 tab PO DAILY [facility] Last Admin: 05/02/18 09:37 Dose: 1 tab Tamsulosin HCl (Flomax) 0.4 mg PO DAILY [facility] Last Admin: 05/02/18 09:35 Dose: 0.4 mg Vancomycin HCl (Vancocin (Oral/Rectal Use)) 125 mg PO Q6 [facility] PRN Reason: Protocol Last Admin: 05/02/18 21:09 Dose: 125 mg - Labs Labs: 05/02/18 05:00 05/02/18 05:00 PT 12.0 Seconds (9.8-13.1) 04/18/18 17:45 INR 1.1 (0.9-1.2) 04/18/18 17:45 APTT 27.8 Seconds (25.6-37.1) 04/18/18 17:45 Assessment and Plan (1) Wound drainage Status: Acute
[2018-05-03 00:03] VITALS: RESP 18
[2018-05-03] MEDS: Enoxaparin 80 mg Syringe SC SCH ×2 (01:09→12:58)
[2018-05-03] MEDS: Vancomycin 500 mg (Oral/Rectal USE) PO SCH ×2 (04:38→10:05)
[2018-05-03 06:54] LABS: MEAN CELL VOLUME 92.7 fl (80.0-94.0); MEAN CORPUSCULAR HEMOGLOBIN 31.2 pg (27.0-31.0); MEAN CORPUSCULAR HGB CONC 33.7 g/dL (33.0-37.0); RBC 3.22 Mil/uL (4.40-5.90); RED CELL DISTRIBUTION WIDTH 16.8 % (11.5-14.5); WHITE BLOOD COUNT 8.4 K/uL (4.8-10.8)
--- NOTE | 2018-05-03 08:40 | CP.PCM.PN ---
Subjective - Date & Time of Evaluation Date of Evaluation: 05/03/18 Time of Evaluation: 08:00 - Subjective Subjective: NO CHEST PAIN OR SOB Objective - Vital Signs/Intake and Output Vital Signs (last 24 hours): Temp Pulse Resp BP Pulse Ox 98.8 F 70 18 97/57 L 97 05/03/18 00:00 05/03/18 00:00 05/03/18 00:00 05/03/18 00:00 05/03/18 00:00 - Medications Medications: Current Medications Acetaminophen (Tylenol 325mg Tab) 650 mg PO Q4 PRN PRN Reason: Pain, moderate (4-7) Last Admin: 05/02/18 20:59 Dose: 650 mg Carbidopa/Levodopa (Sinemet) 2 tab PO Q12 [facility] Last Admin: 05/02/18 20:50 Dose: 2 tab Enoxaparin Sodium (Lovenox) 70 mg SC Q12@0100,1300 [facility] PRN Reason: Protocol Last Admin: 05/03/18 01:09 Dose: 70 mg Ergocalciferol (Drisdol 50,000 Intl Units Cap) 1 cap PO SUN [facility] Last Admin: 05/01/18 08:44 Dose: 1 cap Ferrous Sulfate (Feosol) 325 mg PO TID [facility] Last Admin: 05/02/18 16:00 Dose: 325 mg Folic Acid (Folic Acid) 1 mg PO DAILY [facility] Last Admin: 05/02/18 09:35 Dose: 1 mg Vancomycin HCl 1 gm/ Sodium (Chloride) 250 mls @ 166.667 mls/hr IVPB Q12@0200, 1400 [facility] PRN Reason: Protocol Last Admin: 05/03/18 01:10 Dose: 166.667 mls/hr Lactic Acid (Lac-Hydrin 12% Cream (140 G)) 1 ea TOP BID [facility] Last Admin: 05/02/18 16:00 Dose: 1 applic Lactobacillus Acidophilus (Bacid Acidophilus) 1 cap PO DAILY [facility] Last Admin: 05/02/18 09:34 Dose: 1 cap Multivitamins/Minerals (Therapeutic-M Tab) 1 tab PO DAILY [facility] Last Admin: 05/02/18 09:37 Dose: 1 tab Tamsulosin HCl (Flomax) 0.4 mg PO DAILY [facility] Last Admin: 05/02/18 09:35 Dose: 0.4 mg Vancomycin HCl (Vancocin (Oral/Rectal Use)) 125 mg PO Q6 [facility] PRN Reason: Protocol Last Admin: 05/03/18 04:38 Dose: 125 mg - Labs Labs: 05/03/18 06:00 05/02/18 05:00 PT 12.0 Seconds (9.8-13.1) 04/18/18 17:45 INR 1.1 (0.9-1.2) 04/18/18 17:45 APTT 27.8 Seconds (25.6-37.1) 04/18/18 17:45 - Respiratory Exam Respiratory Exam: Clear to Ausculation Bilateral - Cardiovascular Exam Cardiovascular Exam: REGULAR RHYTHM, +S1, +S2 - Extremities Exam Extremities Exam: Pedal Edema - Additional Findings Additional findings: H/H 08/08.8 Assessment and Plan - Assessment and Plan (Free Text) Assessment: RECENT RIGHT HIP SURGERY FOR INFECTION RLE DVT PARKINSONISM Plan: CONTINUE ANTIBIOTICS AND LOVENOX
[2018-05-03] MEDS: Multivitamin With Minerals Tab PO SCH (08:56)
[2018-05-03] MEDS: Ammonium Lactate 12% Cream (140 g) TOP SCH (08:57)
[2018-05-03] MEDS: Lactobacillus Acidophilus 500 MU Cap PO SCH (09:02)
[2018-05-03 09:07] VITALS: BP 110/76; PULSE 84; TEMP 98.4; O2SAT 100
--- NOTE | 2018-05-03 12:13 | CP.PCM.PN ---
Subjective - Date & Time of Evaluation Date of Evaluation: 05/03/18 Time of Evaluation: 10:30 - Subjective Subjective: Patient seen and examined OOB to chair. Pain well controlled. Tolerating PT well. No wound drainage until seated to chair. No other complaints. Objective - Vital Signs/Intake and Output Vital Signs (last 24 hours): Temp Pulse Resp BP Pulse Ox 98.4 F 84 18 110/76 100 05/03/18 09:00 05/03/18 09:00 05/03/18 09:00 05/03/18 09:00 05/03/18 09:00 - Medications Medications: Current Medications Acetaminophen (Tylenol 325mg Tab) 650 mg PO Q4 PRN PRN Reason: Pain, moderate (4-7) Last Admin: 05/02/18 20:59 Dose: 650 mg Carbidopa/Levodopa (Sinemet) 2 tab PO Q12 [facility] Last Admin: 05/03/18 08:55 Dose: 2 tab Enoxaparin Sodium (Lovenox) 70 mg SC Q12@0100,1300 [facility] PRN Reason: Protocol Last Admin: 05/03/18 01:09 Dose: 70 mg Ergocalciferol (Drisdol 50,000 Intl Units Cap) 1 cap PO SUN [facility] Last Admin: 05/01/18 08:44 Dose: 1 cap Ferrous Sulfate (Feosol) 325 mg PO TID [facility] Last Admin: 05/03/18 08:56 Dose: 325 mg Folic Acid (Folic Acid) 1 mg PO DAILY [facility] Last Admin: 05/03/18 08:56 Dose: 1 mg Vancomycin HCl 1 gm/ Sodium (Chloride) 250 mls @ 166.667 mls/hr IVPB Q12@0200, 1400 [facility] PRN Reason: Protocol Last Admin: 05/03/18 01:10 Dose: 166.667 mls/hr Lactic Acid (Lac-Hydrin 12% Cream (140 G)) 1 ea TOP BID [facility] Last Admin: 05/03/18 08:57 Dose: 1 applic Lactobacillus Acidophilus (Bacid Acidophilus) 1 cap PO DAILY [facility] Last Admin: 05/03/18 09:02 Dose: 1 cap Multivitamins/Minerals (Therapeutic-M Tab) 1 tab PO DAILY [facility] Last Admin: 05/03/18 08:56 Dose: 1 tab Tamsulosin HCl (Flomax) 0.4 mg PO DAILY [facility] Last Admin: 05/03/18 08:54 Dose: 0.4 mg Vancomycin HCl (Vancocin (Oral/Rectal Use)) 125 mg PO Q6 [facility] PRN Reason: Protocol Last Admin: 05/03/18 10:05 Dose: 125 mg - Labs Labs: 05/03/18 06:00 05/02/18 05:00 PT 12.0 Seconds (9.8-13.1) 04/18/18 17:45 INR 1.1 (0.9-1.2) 04/18/18 17:45 APTT 27.8 Seconds (25.6-37.1) 04/18/18 17:45 - Extremities Exam Additional comments: R hip: Dressings soaked with serous drainage, wound intact with moderate serous drainage proximal wound mild swelling continues to improve sensation intact SP/DP/TN motor intact EHL/FHL/TA/G pedal pulses intact comps soft NT Assessment and Plan (1) History of revision of total replacement of right hip joint Assessment & Plan: POD# 14 s/p R revision DONELL, C diff. infection improving -wet to dry betadine dressings changed, continue dressing changes daily -PT/OT 10% FF WB -abx as per ID -DVT treatment as per medicine -orthopedically stable for discharge to rehab -f/u in office in 7-10 days. call for appt -above d/w Dr. Umana in agreement Status: Acute
== END 2018-05-03 15:50 | DRG 857 ==
LOC: H.ER 11:33 → H.ERHOLD 17:15 → H.MEDSURG1 18:58 → H.TEL 04-18 17:09 → H.MEDSURG1 04-28 16:37
PROVIDERS: ADMIT Internal Medicine; ATTEND Internal Medicine
PROC: 0SP90JZ Removal of Synthetic Substitute from Right Hip Joint, Open Approach (ICD-10-PCS; 2018-04-18)
PROC: 0KBN0ZZ Excision of Right Hip Muscle, Open Approach (ICD-10-PCS; 2018-04-18)
PROC: 30233N1 Transfusion of Nonautologous Red Blood Cells into Peripheral Vein, Percutaneous Approach (ICD-10-PCS; 2018-04-18)
PROC: 0SR903Z Replacement of Right Hip Joint with Ceramic Synthetic Substitute, Open Approach (ICD-10-PCS; principal; 2018-04-18 09:30)
DX: T81.4XXA Infection following a procedure, initial encounter (principal); D62 Acute posthemorrhagic anemia; I82.411 Acute embolism and thrombosis of right femoral vein; A04.72 Enterocolitis due to Clostridium difficile, not specified as recurrent; B95.2 Enterococcus as the cause of diseases classified elsewhere; I95.81 Postprocedural hypotension; G20 Parkinson's disease; Z96.641 Presence of right artificial hip joint; E55.9 Vitamin D deficiency, unspecified; R32 Unspecified urinary incontinence